=== PATIENT | female | born 1945 | race Caucasian/White ===

== ENCOUNTER 2016-09-30 18:15 | Inpatient (IN) | payer MEDICARE, OTHER ==
[~2016-09-30] VITALS: Ht 167.6 cm; Wt 86.6 kg
[2016-09-30] VITALS (13 sets, daily range): BP systolic 102–164; BP diastolic 67–82; PULSE 107–139; RESP 14–30; TEMP 98.1–100.2; O2SAT 93–100
[~2016-09-30 18:15] MED LIST: ALBU17I INH; ALPR.25 PO; BENA10TA PO; LEVA750T9 PO; LEVO50TA4 PO; PRED20 PO; PRIL40CA PO; QUET1TAB67 PO; VENL150T14 PO; Z.0.OXYGENDME NC; ZOCO80TA PO
[2016-09-30] MEDS ORDERED: SUCCINYLCHOLINE CHLORIDE 200 MG/10 ML VIAL ONE (18:23)
[2016-09-30] MEDS ORDERED: ETOMIDATE 20 MG/10 ML VIAL ONE (18:23)
--- NOTE | 2016-09-30 18:38 | PD ---
HPI Chief Complaint: Respiratory Distress Time Seen by Provider: 18:33 Travel History International Travel<30 days: No Contact w/Intl Traveler<30days: No Traveled to known affect area: No History of Present Illness HPI 70yo F with PMH of COPD on 2L home O2, HTN was brought in by [facility] for respiratory distress. Pt has been sob for 1 day and used her nebulizer treatments without relieve. As per [facility], pt's saturation was 69% on 2 LNC and was given duonebsx3 and methylprednisolone 125mg IV. Upon arrival, pt was tachypneic but with good mental status so initially immediately placed on BIPAP. Pt observed on BIPAP for a few minutes but felt that pt is still too tachypneic and is getting tired. Decision was made to emergently intubate and pt agrees with intubation. PFSH Past Medical History Autoimmune Disease: No Anxiety: Yes (TAKES MED) Depression: Yes Heart Rhythm Problems: No Cancer: Yes Cardiac Catheterization: Yes (7yrs ago.) High Cholesterol: Yes Chemotherapy: No Chest Pain: Yes (CARDIAC CATHERIZATION 7 YEARS AGO) Congestive Heart Failure: No COPD: Yes Cerebrovascular Accident: No Diabetes: No Diminished Hearing: No Diverticulitis: Yes Endocrine: Yes Gastrointestinal Disorders: Yes (DELAYED GASTRIC EMPTYING) GERD: Yes Genitourinary: No Hiatal Hernia: Yes Heparin Induced Thrombocytopen: No Hypertension: Yes Immune Disorder: No Implanted Vascular Access Dvce: No Musculoskeletal: No Neurologic: No Psychiatric: Yes Reproductive: No Respiratory: Yes (copd) Radiation Therapy: No Thyroid Disease: Yes Ulcer: No Tetanus Vaccination: Unknown PNEUMOCCOCAL Vaccine (Year): 2 Past Surgical History Abdominal Surgery: Yes (GALLBLADDER REMOVAL, APPENDECTOMY,) Appendectomy: Yes Cardiac Surgery: No Cholecystectomy: Yes Coronary Artery Bypass Graft: No Ear Surgery: No Endocrine Surgery: No Eye Surgery: No Genitourinary Surgery: No Gynecologic Surgery: Yes (HYSTERECTOMY, S/P UTERINE CA) Hysterectomy: Yes Neurologic Surgery: No Oral Surgery: No Thoracic Surgery: No Other Surgery: Yes Family History Family Myocardial Infarction: Yes (father) Social History Alcohol Use: No Tobacco Use: Yes (PACK A DAY FOR 50 YEARS; curretnly 8 cigs/day) Substance Use: No Allergies-Medications (Allergen,Severity, Reaction): Coded Allergies: Contrast Media (Verified Allergy, Severe, Itching, 09/30/16) 1-2 ITCHY SPOTS Reported Meds & Prescriptions Reported Meds & Active Scripts Active Reported Duoneb (Ipratropium-Albuterol Neb) 0.5-2.5 Mg/3 Ml Neb 1 Nebule INH Q6HR NEB Alprazolam 0.25 Mg Tab 0.25 Mg PO Q8H PRN Simvastatin 20 Mg Tab 20 Mg PO DAILY Quetiapine (Quetiapine Fumarate) 100 Mg Tab 100 Mg PO DAILY Benazepril (Benazepril HCl) 10 Mg Tab 10 Mg PO DAILY Venlafaxine ER 24 HR (Venlafaxine HCl) 150 Mg Cap 150 Mg PO DAILY Review of Systems ROS Limitations: Clinical Condition Physical Exam Narrative GENERAL: 70yo F in acute distress. SKIN: Warm and dry. HEAD: Atraumatic. Normocephalic. NECK: Trachea midline. No JVD. CARDIOVASCULAR: Tachycardic in the 130s. RESPIRATORY: + accessory muscle use. Wheezing bilaterally. Speaking in few words at a time. GASTROINTESTINAL: Abdomen soft, non-tender, nondistended. No rebound tenderness or guarding. MUSCULOSKELETAL: No obvious deformities. No clubbing. No cyanosis. No edema. NEUROLOGICAL: Awake and alert. No obvious cranial nerve deficits. Motor grossly within normal limits. Normal speech. PSYCHIATRIC: Appropriate mood and affect; insight and judgment normal. Data Data Last Documented VS Vital Signs Date Time Temp Pulse Resp B/P Pulse Ox O2 Delivery O2 Flow Rate FiO2 09/30/16 19:00 122 14 164/81 97 Auto-Vent 09/30/16 18:51 100 09/30/16 18:19 10 09/30/16 18:17 100.2 Orders Etomidate Inj (Amidate Inj) (09/30/16 18:23) Succinylcholine Inj (Quelicin Inj) (09/30/16 18:23) Etomidate Inj (Amidate Inj) (09/30/16 18:45) Succinylcholine Inj (Quelicin Inj) (09/30/16 18:45) Complete Blood Count With Diff (09/30/16 18:33) Basic Metabolic Panel (Bmp) (09/30/16 18:33) Act Partial Throm Time (Ptt) (09/30/16 18:33) Prothrombin Time / Inr (Pt) (09/30/16 18:33) Magnesium (Mg) (09/30/16 18:33) Ckmb (Isoenzyme) Profile (09/30/16 18:33) Troponin I (09/30/16 18:33) Blood Culture (09/30/16 18:33) Iv Access Insert/Monitor (09/30/16 18:33) Electrocardiogram (09/30/16 18:33) Ecg Monitoring (09/30/16 18:33) Oximetry (09/30/16 18:33) Oxygen Administration (09/30/16 18:33) Chest, Single Ap (09/30/16 18:33) Sodium Chloride 0.9% Flush (Ns Flush) (09/30/16 18:45) Lactic Acid Sepsis Protocol (09/30/16 18:33) Albuterol-Ipratropium Neb (Duoneb Neb) (09/30/16 18:45) Arterial Blood Gas (Abg) (09/30/16 ) Propofol 1000 Mg/100 Ml Inj (Diprivan 10 (09/30/16 18:45) ^ Infusion (09/30/16 18:38) RASS (09/30/16 18:38) Neurological Rass Scale GIA.Q2H (09/30/16 18:38) Propofol 1000 Mg/100 Ml Inj (Diprivan 10 (09/30/16 18:39) Urinary Catheter Insert/Apply (09/30/16 18:43) Restraints Non-Violent GIA.Q3H (09/30/16 18:43) Neurological Rass Scale Q30MX2,Q2HX4,Q4H (09/30/16 18:59) Fentanyl Drip (Fentanyl Drip) (09/30/16 19:00) Midazolam Inj (Versed Inj) (09/30/16 19:00) Neurological Rass Scale Q30MX2,Q2HX4,Q4H (09/30/16 18:59) Fentanyl Drip (Fentanyl Drip) (09/30/16 19:01) Admit To Inpatient (09/30/16 ) Code Status (09/30/16 19:07) Vital Signs (Adult) GIA.Q1H (09/30/16 19:07) Activity Bed Rest (09/30/16 19:07) Insurance Associate / Telemetry GIA.Q8H (09/30/16 19:07) Intake + Output GIA.Q8H (09/30/16 19:07) Diet Npo (10/01/16 Breakfast) Sodium Chlor 0.9% 1000 Ml Inj (Ns 1000 M (09/30/16 19:07) Sodium Chloride 0.9% Flush (Ns Flush) (09/30/16 19:15) Sodium Chloride 0.9% Flush (Ns Flush) (09/30/16 21:00) Acetaminophen (Tylenol) (09/30/16 19:15) Fentanyl Inj (Fentanyl Inj) (09/30/16 19:15) Albuterol-Ipratropium Neb (Duoneb Neb) (09/30/16 20:00) Albuterol-Ipratropium Neb (Duoneb Neb) (09/30/16 19:15) Chlorhexidine 0.12% Liq (Peridex 0.12% L (09/30/16 20:00) Pantoprazole Inj (Protonix Inj) (10/01/16 09:00) Complete Blood Count With Diff (10/01/16 06:00) Comprehensive Metabolic Panel (10/01/16 06:00) Sputum Culture And Gram Stain (09/30/16 19:07) Chest, Single Ap (10/01/16 06:00) Resp Pulse Oximetry (09/30/16 ) Resp Ventilation- Volume (09/30/16 ) Arterial Blood Gas (Abg) (09/30/16 21:00) Consult Cm-Day 5 Ltac Eval (09/30/16 ) Enoxaparin Inj (Lovenox Inj) (09/30/16 20:00) Scd Bilateral/Knee High GIA.BID (09/30/16 19:07) Tanmay Bilateral/Knee High GIA.QSHIFT (09/30/16 19:07) ^ Initiate Protocol (09/30/16 19:07) ^ Instruction (09/30/16 19:07) [facility] Information (09/30/16 19:15) Chlorhexidine 2% Cloth (Chlorhexidine 2% (10/01/16 04:00) Chlorhexidine 2% Cloth (Chlorhexidine 2% (09/30/16 19:15) [facility] Pcr Surveillance (09/30/16 19:07) Propofol 1000 Mg/100 Ml Inj (Diprivan 10 (09/30/16 19:15) Inpatient Certification (09/30/16 ) Levofloxacin 750 Mg Premix Inj (Levaquin (09/30/16 21:00) Methylprednisolone So Succ Inj (Solumedr (10/01/16 00:00) Methylprednisolone So Succ Inj (Solumedr (09/30/16 19:15) ^ Medication Admin Instruction (09/30/16 19:13) ^ Notify Dr: Other (09/30/16 19:13) Potassium Chlor 40 Meq Premix (Kcl 40 Me (09/30/16 19:15) Potassium Chlor 20 Meq Premix (Kcl 20 Me (09/30/16 19:15) Potassium Cl 40 Meq/30 Ml Liq (Kcl 40 Me (09/30/16 19:15) Potassium Chlor 20 Meq Premix (Kcl 20 Me (09/30/16 19:15) Magnesium Sulfate Inj (Magnesium Sulfate (09/30/16 19:15) Magnesium Oxide (Mag-Ox) (09/30/16 19:15) Magnesium Sulfate Inj (Magnesium Sulfate (09/30/16 19:15) Potassium Phosphate (K-Phos) (09/30/16 19:15) Sodium Phosphate Inj (Sodium Phosphate I (09/30/16 19:15) Potassium Cl 40 Meq/30 Ml Liq (Kcl 40 Me (09/30/16 19:15) Potassium Phosphate (K-Phos) (09/30/16 19:15) Potassium Phosphate Inj (Potassium Phosp (09/30/16 19:15) Potassium Chlor 40 Meq Premix (Kcl 40 Me (09/30/16 19:15) Admit Order (Ed Use Only) (09/30/16 19:14) Phosphorus (Po4) (09/30/16 18:40) CKMB (09/30/16 18:40) CKMB% (09/30/16 18:40) Labs Laboratory Tests Test 09/30/16 09/30/16 18:40 19:05 White Blood Count 6.6 TH/MM3 Red Blood Count 5.07 MIL/MM3 Hemoglobin 14.6 GM/DL Hematocrit 44.5 % Mean Corpuscular Volume 87.9 FL Mean Corpuscular Hemoglobin 28.9 PG Mean Corpuscular Hemoglobin 32.9 % Concent Red Cell Distribution Width 15.4 % Platelet Count 135 TH/MM3 Mean Platelet Volume 10.4 FL Neutrophils (%) (Auto) 80.2 % Lymphocytes (%) (Auto) 10.3 % Monocytes (%) (Auto) 6.0 % Eosinophils (%) (Auto) 2.6 % Basophils (%) (Auto) 0.9 % Neutrophils # (Auto) 5.3 TH/MM3 Lymphocytes # (Auto) 0.7 TH/MM3 Monocytes # (Auto) 0.4 TH/MM3 Eosinophils # (Auto) 0.2 TH/MM3 Basophils # (Auto) 0.1 TH/MM3 CBC Comment DIFF FINAL Differential Comment Sodium Level 138 MEQ/L Potassium Level 4.6 MEQ/L Chloride Level 104 MEQ/L Carbon Dioxide Level 27.5 MEQ/L Anion Gap 7 MEQ/L Blood Urea Nitrogen 15 MG/DL Creatinine 0.74 MG/DL Estimat Glomerular Filtration 77 ML/MIN Rate Random Glucose 154 MG/DL Lactic Acid Level 1.3 mmol/L Calcium Level 8.3 MG/DL Phosphorus Level 5.5 MG/DL Magnesium Level 2.1 MG/DL Total Creatine Kinase 131 U/L Creatine Kinase MB 2.7 NG/ML Troponin I 0.50 NG/ML Blood Gas Puncture Site RT RADIAL Blood Gas Patient Temperature 98.6 Blood Gas HCO3 23 mmol/L Blood Gas Base Excess -2.8 mmol/L Blood Gas Oxygen Saturation 95 % Arterial Blood pH 7.25 Arterial Blood Partial 56 mmHg Pressure CO2 Arterial Blood Partial 481 mmHG Pressure O2 Arterial Blood Oxygen Content 20.1 Vol % Arterial Blood 1.9 % Carboxyhemoglobin Arterial Blood Methemoglobin 2.4 % Blood Gas Hemoglobin 14.1 G/DL Oxygen Delivery Device VENTILATOR Blood Gas Ventilator Setting VAC/12/500/PEEP5 Blood Gas Inspired Oxygen 100 % [facility] Medical Decision Making Medical Screen Exam Complete: Yes Emergency Medical Condition: Yes Interpretation(s) EKG: Sinus tachycardia at 123bpm. Normal axis. No ST segment elevation or depression. Q wave V1, V2. Differential Diagnosis Respiratory distress secondary to COPD exacerbation vs. PNA vs. ACS Narrative Course 70yo F with COPD brought in by [facility] with respiratory distress. Pt was given methylprednisolone 125mg IV and duonebs x3 by [facility] and arrived still very tachypneic and tachycardic with sinus tach in the 130s. Pt emergently intubated and was placed on propofol drip. However, BP decreased to systolic 90s and sedation was switched to fentanyl and versed drip. BP improved to systolic in the 120s. Duonebs Q4 hours ordered. Discussed with certified medication technician Dr. Bunn and accepted to his service. Labs reviewed, no leukocytosis. Normal lactic acid. Troponin elevated at 0.50. ABG showed respiratory acidosis with pH: 7.25 and pCO2 56. CXR showed good position of ET and NG tube. No acute airspace disease. Impression is hypoxic respiratory failure secondary to COPD exacerbation. Pt is wheezing diffusely. Critical Care Narrative Aggregate critical care time was 40 minutes. Time to perform other separately billable procedures was not included in the critical care time. My time did not include minutes spent treating any other patients simultaneously or on activities that did not directly contribute to the patient's treatment. The services I provided to this patient were to treat and/or prevent clinically significant deterioration that could result in: cardiovascular collapse or . I provided critical care services requiring my management, as noted below: Chart data review, documentation time, medication orders and management, vital sign assessments/reviewing monitor data, ordering and reviewing lab tests, ordering and interpreting/reviewing x-rays and diagnostic studies, care of the patient and discussion of the patient with the admitting physicians. Procedures Procedure Narrative The patient was put in optimal position for the procedure. Rapid sequence intubation was initiated by me using 20 milligrams of etomidate IV and 100 milligrams of succinylcholine IV. The patient was intubated with a 7.5 cuffed endotracheal tube. Tube placement was confirmed by visualization of the tube and balloon passing through the cords, capnometry and subsequent chest x-ray. Breath sounds were equal and well aerated bilaterally postintubation. No breath sounds over stomach. Patient tolerated procedure well. Diagnosis Primary Impression: Acute hypoxemic respiratory failure Admitting Information Admitting Physician Requests: Admit Dominique Rehman DO Sep 30, 2016 18:38
[2016-09-30] MEDS ORDERED: PROPOFOL 1000 MG/100 ML INJ 100 ML ONE (18:39)
[2016-09-30] MEDS ORDERED: SODIUM CHLORIDE 0.9% FLUSH 5 ML FLUSH IVF PRN (18:45)
[2016-09-30] MEDS ORDERED: ETOMIDATE 20 MG/10 ML VIAL IV PUSH ONE (18:45)
[2016-09-30] MEDS ORDERED: SUCCINYLCHOLINE CHLORIDE 200 MG/10 ML VIAL IV PUSH ONE (18:45)
[2016-09-30] MEDS ORDERED: RESP: ALBUTEROL 2.5 MG/IPRATROPIUM 0.5 MG NEB (PRN) NEB (18:45)
[2016-09-30] MEDS ORDERED: PROPOFOL 1000 MG/100 ML INJ 100 ML IV SCH (18:45)
[2016-09-30] MEDS ORDERED: fentaNYL DRIP 250 ML ONE (19:01)
[2016-09-30] MEDS: fentaNYL DRIP 250 ML IV SCH ×2 (19:09→19:11)
[2016-09-30] MEDS ORDERED: POTASSIUM CHLOR 20 MEQ PREMIX 100 ML IV PRN ×2 (19:15)
[2016-09-30] MEDS ORDERED: MISCELLANEOUS NURSING INFORMATION XX SCH (19:15)
[2016-09-30] MEDS ORDERED: POTASSIUM CHLOR 40 MEQ PREMIX 100 ML IV PRN ×2 (19:15)
[2016-09-30] MEDS ORDERED: MAGNESIUM OXIDE 400 MG TAB PO PRN (19:15)
[2016-09-30] MEDS ORDERED: MAGNESIUM SULFATE INJ 4 GM in SODIUM CHLORIDE 0.9% INJ 92 ML IV PRN (19:15)
[2016-09-30] MEDS ORDERED: POTASSIUM PHOSPHATE INJ 30 MMOL in SODIUM CHLOR 0.9% 250 ML INJ 250 ML IV PRN (19:15)
[2016-09-30] MEDS ORDERED: methylPREDNISolone SOD SUCC 125 MG/2 ML VIAL IV PUSH ONE (19:15)
[2016-09-30] MEDS ORDERED: RESP: ALBUTEROL 2.5 MG/IPRATROPIUM 0.5 MG NEB (PRN) INH (19:15)
[2016-09-30] MEDS ORDERED: POTASSIUM PHOSPHATE MONOBASIC 500 MG TAB PO PRN (19:15)
[2016-09-30] MEDS ORDERED: POTASSIUM CL 40 MEQ/30 ML LIQ UDC PO/TUBE PRN ×2 (19:15)
[2016-09-30] MEDS ORDERED: MAGNESIUM SULFATE INJ 2 GM in SODIUM CHLORIDE 0.9% INJ 96 ML IV PRN (19:15)
[2016-09-30] MEDS ORDERED: POTASSIUM PHOSPHATE MONOBASIC 500 MG TAB PO/TUBE PRN (19:15)
[2016-09-30] MEDS ORDERED: CHLORHEXIDINE GLUCONATE 2 % 1 PACK (2 CLOTHS) TOP PRN (19:15)
--- NOTE | 2016-09-30 19:16 | HHI.HP ---
[facility] Service Critical Care Medicine Primary Care Physician Alejandro Urban MD Admission Diagnosis Diagnosis: (1) Acute hypoxemic respiratory failure Diagnosis: Principal (2) COPD with exacerbation Diagnosis: Principal (3) Troponin level elevated Diagnosis: Principal (4) Hyperglycemia Diagnosis: Principal (5) COPD (chronic obstructive pulmonary disease) Diagnosis: Secondary (6) Tobacco dependence Diagnosis: Secondary (7) Hypertension Diagnosis: Secondary Chief Complaint: Acute hypoxemic respiratory failure and respiratory distress Travel History International Travel<30 Days: No Contact w/Intl Traveler <30 Da: No Traveled to Known Affected Are: No History of Present Illness Patient is a 78-year-old white female with past medical history significant for COPD on 2L home O2, HTN, anxiety who was brought in [place] [facility] by [facility] for respiratory distress. Apparently patient had been increasingly short of breath for 1 day and used her nebulizer treatments without relief. Patient's oxygen saturation was 69% on 2 LNC on [facility] arrival and was given duonebsx3 and methylprednisolone 125mg IV. In the emergency department patient was very tachypneic hypoxic and was immediately placed on BIPAP. Patient remained tachypneic in respiratory distress on BiPAP and was intubated and placed on mechanical ventilation I evaluated the patient in the ED. Patient is asynchronous and tachypneic on the ventilator, agitated on sedation. I have requested neuromuscular paralysis 50 mg rocuronium 1. ABG shows pH 7.25 PCO2 of 56 and PO2 481. Patient will be treated with IV Solu-Medrol and DuoNeb scheduled breathing treatments and empiric Levaquin will be added for COPD exacerbation. Patient has mild troponin elevation no acute EKG changes. This is most likely from severe COPD exacerbation and severe hypoxemia. Review of Systems ROS Limitations: Intubated Past Family Social History Allergies: Coded Allergies: Contrast Media (Verified Allergy, Severe, Itching, 09/30/16) 1-2 ITCHY SPOTS Past Medical History COPD Hypertension History of uterine cancer Hyperlipidemia Anxiety GERD Past Surgical History Appendectomy Cholecystectomy Total hysterectomy Reported Medications Reviewed Active Ordered Medications Reviewed Family History Noncontributory Social History [id number] history of smoking, currently smokes about 8 cigarettes a day Physical Exam Vital Signs Vital Signs Date Time Temp Pulse Resp B/P Pulse Ox O2 Delivery O2 Flow Rate FiO2 09/30/16 18:51 98 100 09/30/16 18:46 97 100 09/30/16 18:46 97 Auto-Vent 09/30/16 18:30 100 09/30/16 18:19 93 Non-Rebreather 10 09/30/16 18:17 100.2 139 30 125/72 93 Physical Exam GENERAL: 70yo F who is intubated sedated with propofol fentanyl, breathing about the vent a synchronous agitated SKIN: Warm and dry. HEAD: Atraumatic. Normocephalic. ENT: Orotracheally intubated NECK: Trachea midline. No JVD. CARDIOVASCULAR: Tachycardic in the 110s. No murmurs RESPIRATORY: Air entry equal bilaterally, severe bilateral expiratory wheezing. GASTROINTESTINAL: Abdomen soft, non-tender, nondistended. Well-healed previous surgical scar MUSCULOSKELETAL: No obvious deformities. No clubbing. No cyanosis. No edema. NEUROLOGICAL: Intubated sedated. Moving all extremities not following commands Imaging Chest x-ray no acute findings Assessment and Plan Assessment and Plan NEURO: -Propofol fentanyl and Versed infusion for sedation and ventilator synchrony -Sedation vacation starting 24 hours RESP: Acute hypoxemic respiratory failure Acute COPD exacerbation Chronic COPD on 2 L home oxygen -Emergently intubated and placed on mechanical ventilation ACV 14/550/7 titrate FiO2 to keep saturation about 90% -Closely monitored avoid entrapping because of significant wheezing -IV Solu-Medrol 125 mg given by [facility], continue 60 mg IV every 8 hours -DuoNeb every 4 hours scheduled and every 2 hours when necessary. Symbicort 2 puffs every 12 CV: Hypotension due to sedation Tachycardia/SIRS Troponin elevation, from severe hypoxemia and COPD exacerbation -Normal saline IV fluids 2L and 84 ml per hour -Lactic acid is normal, hypotension most likely sedation induced -Use Levophed as needed to keep map above 65 -Mild troponin elevation most likely secondary to severe hypoxemia, stress induced -Check 2-D echo, start aspirin, low-dose Coreg -I don't see an indication for cardiology consult at this time. If echo shows wall motion abnormalities will consult cardiology -Hold Benzapril continue simvastatin GI: -Nothing by mouth, IV Protonix, Colace for bowel regimen : -Monitor renal function closely. Abreu catheter. ID: -Check sputum culture, blood culture -Started on empiric Levaquin 750 mg every 24 hours for COPD exacerbation HEME: -Monitor CBC, CMP, coags ENDO: Mild hyperglycemia most likely stress induced -Sliding-scale insulin if needed -Electrolyte replacement per protocol PROPH: Bilateral lower extremity SCDs. Lovenox for DVT prophylaxis. Protonix for GI prophylaxis LINES: -Utilize peripheral IVs, central line if needed CC time 55 min Code Status Full Discussed Condition With Rebel Snowden MD Sep 30, 2016 19:16
[2016-09-30 19:20] LABS: BLOOD GAS BASE EXCESS -2.8 mmol/L (-2-2); BLOOD GAS CARBOXYHEMOGLOBIN 1.9 % (0-4); BLOOD GAS HCO3 23 mmol/L (22-26); BLOOD GAS METHEMOGLOBIN 2.4 % (0-2); BLOOD GAS O2 HGB SATURATION 95 % (90-100); BLOOD GAS OXYGEN CONTENT 20.1 Vol % (12.0-20.0); BLOOD GAS PCO2 56 mmHg (38-42); BLOOD GAS PO2 481 mmHG (61-120); BLOOD GAS TOTAL HGB 14.1 G/DL (12.0-16.0); TEMP CORR TO 98.6
[2016-09-30 19:22] LABS: CRITICAL VALUE YES; DRAW SITE RT RADIAL; FIO2 100 %; NUMBER OF ARTERIAL PUNCTURES 1; OXYGEN DEVICE VENTILATOR; STAT YES; ULNAR PULSE PRESENT; VENT SETTINGS VAC/12/500/PEEP5
[2016-09-30 19:29] LABS: AUTOMATED NEUTROPHIL # 5.3 TH/MM3 (1.8-7.7); BASOPHIL # 0.1 TH/MM3 (0-0.2); BASOPHIL % 0.9 % (0.0-2.0); EOSINOPHIL # 0.2 TH/MM3 (0-0.4); EOSINOPHIL % 2.6 % (0.0-4.0); HEMATOCRIT 44.5 % (35.0-46.0); HEMO FLAGS DIFF FINAL; LYMPH % 10.3 % (9.0-44.0); LYMPHOCYTE # 0.7 TH/MM3 (1.0-4.8); MEAN CELL VOLUME 87.9 FL (80.0-100.0); MEAN CORPUSCULAR HEMOGLOBIN 28.9 PG (27.0-34.0); MEAN CORPUSCULAR HGB CONC 32.9 % (32.0-36.0); NEUT % 80.2 % (16.0-70.0); PLATELET COUNT 135 TH/MM3 (150-450); RED BLOOD COUNT 5.07 MIL/MM3 (4.00-5.30); RED CELL DISTRIBUTION WIDTH 15.4 % (11.6-17.2); WHITE BLOOD COUNT 6.6 TH/MM3 (4.0-11.0)
--- NOTE | 2016-09-30 19:46 | RADRPT ---
EXAM DATE/TIME: 09/30/2016 18:36 [facility] COMPARISON: CHEST SINGLE AP, September 05, 2015, 12:03. INDICATIONS : SOB MEDICAL HISTORY : Chronic obstructive pulmonary disease. SURGICAL HISTORY : None. ENCOUNTER: Initial ACUITY: 1 day PAIN SCORE: 0/10 LOCATION: chest FINDINGS: Endotracheal and nasogastric tubes have been inserted and are in good position. Lungs are hyperinflated. There is no evidence of consolidating airspace disease or significant conges tion. Heart and mediastinal structures are stable. There is no cardiomegaly. CONCLUSION: COPD. Satisfactory placement of endotracheal and nasogastric tubes. No evidence of acute air space disease or significant congestion. Payam Arteaga MD on September 30, 2016 at 19:44 Board Certified Radiologist. This report was verified electronically.
[2016-09-30] MEDS: RESP: ALBUTEROL 2.5 MG/IPRATROPIUM 0.5 MG NEB (SCH) NEB ×2 (19:49→23:29)
[2016-09-30] MEDS: RESP: ALBUTEROL 2.5 MG/IPRATROPIUM 0.5 MG NEB (SCH) INH (19:54)
[2016-09-30] MEDS ORDERED: ENOXAPARIN SODIUM 40 MG/0.4 ML SYRINGE SQ SCH (20:00)
[2016-09-30] MEDS: SODIUM CHLOR 0.9% 1000 ML INJ 1,000 ML IV SCH (20:06)
[2016-09-30 20:08] LABS: ANION GAP 7 MEQ/L (5-15); BICARBONATE 27.5 MEQ/L (21.0-32.0); BLOOD UREA NITROGEN 15 MG/DL (7-18); CHLORIDE 104 MEQ/L (98-107); CREATINE KINASE 131 U/L (26-192); GLOMERULAR FILTRATION RATE 77 ML/MIN (>89); MAGNESIUM 2.1 MG/DL (1.5-2.5); SODIUM (NA) 138 MEQ/L (136-145)
[2016-09-30] MEDS ORDERED: VENL150C39 PO (20:08)
[2016-09-30] MEDS ORDERED: IPRASOL INH (20:08)
[2016-09-30] MEDS ORDERED: SIMV20TA PO (20:08)
[2016-09-30] MEDS ORDERED: QUET1TAB8 PO (20:08)
[2016-09-30] MEDS ORDERED: BENA10TA PO (20:08)
[2016-09-30] MEDS ORDERED: ALPR0.25 PO (20:08)
[2016-09-30 20:09] LABS: POTASSIUM 4.6 MEQ/L (3.5-5.1)
[2016-09-30] MEDS ORDERED: SODIUM CHLOR 0.9% 1000 ML INJ 1,000 ML IV ONE (20:15)
[2016-09-30] MEDS ORDERED: ROCURONIUM INJ 50 MG/5 ML VIAL IV ONE (20:15)
[2016-09-30 20:21] LABS: CKMB 2.7 NG/ML (0.5-3.6)
[2016-09-30] MEDS ORDERED: ROCURONIUM INJ 50 MG/5 ML VIAL IV STA (20:28)
[2016-09-30] MEDS: BUDESONIDE-FORMOTEROL 160/4.5 MCG INHALER INH SCH (21:00)
[2016-09-30 21:25] LABS: BLOOD GAS BASE EXCESS -3.7 mmol/L (-2-2); BLOOD GAS CARBOXYHEMOGLOBIN 1.5 % (0-4); BLOOD GAS HCO3 22 mmol/L (22-26); BLOOD GAS METHEMOGLOBIN 1.3 % (0-2); BLOOD GAS O2 HGB SATURATION 94 % (90-100); BLOOD GAS OXYGEN CONTENT 18.9 Vol % (12.0-20.0); BLOOD GAS PCO2 50 mmHg (38-42); BLOOD GAS PO2 94 mmHg (61-120); BLOOD GAS TOTAL HGB 14.3 G/DL (12.0-16.0); TEMP CORR TO 98.6
[2016-09-30 21:27] LABS: DRAW SITE RT RADIAL; FIO2 40 %; NUMBER OF ARTERIAL PUNCTURES 1; OXYGEN DEVICE VENTILATOR; STAT NO; ULNAR PULSE PRESENT; VENT SETTINGS AC 14/550/7PEEP
[2016-09-30 21:29] LABS: CRITICAL VALUE YES
[2016-09-30] MEDS: ASPIRIN 81 MG CHEW TAB TUBE SCH (22:01)
[2016-09-30] MEDS: LEVOFLOXACIN 750 MG PREMIX INJ 150 ML IV SCH (22:01)
[2016-09-30] MEDS: SODIUM CHLORIDE 0.9% FLUSH 5 ML FLUSH IVF SCH (22:02)
[2016-09-30] MEDS: CARVEDILOL 3.125 MG TAB PO SCH (22:02)
[2016-09-30] MEDS: methylPREDNISolone SOD SUCC 125 MG/2 ML VIAL IV PUSH SCH (22:03)
[2016-09-30] MEDS: CHLORHEXIDINE GLUCONATE 2 % 1 PACK (2 CLOTHS) TOP SCH (22:04)
[2016-09-30] MEDS: CHLORHEXIDINE 0.12% (ORAL KIT) 15 ML CUP MT SCH (22:06)
[2016-10-01] VITALS (22 sets, daily range): BP systolic 90–115; BP diastolic 67–77; PULSE 75–101; RESP 14–25; TEMP 97.8–98.6; O2SAT 90–100
[2016-10-01 01:19] LABS: APTT (PATIENT) 27.6 SEC (24.3-30.1)
[2016-10-01] MEDS ORDERED: HEPARIN-D5W INJ 250 ML IV SCH (01:30)
[2016-10-01] MEDS ORDERED: diphenhydrAMINE HCL 50 MG/ML VIAL IV PUSH ONE (02:30)
[2016-10-01] MEDS ORDERED: HEPARIN 25,000 UNITS-D5W 250 ML - PREMIX IV SCH (02:30)
[2016-10-01] MEDS ORDERED: HEPARIN SODIUM - IV 10,000 UNITS/10 ML VIAL IV PRN ×2 (02:30)
[2016-10-01] MEDS ORDERED: EPINEPHrine HCL (1:10,000) 1 MG/10 ML SYRINGE ONE (02:41)
[2016-10-01] MEDS ORDERED: IOHEXOL 350 MG/ML 10 ML VIAL (for RAD DIAG) IV ONE (03:02)
[2016-10-01 03:07] LABS: HEMATOCRIT 41.5 % (35.0-46.0); MEAN CELL VOLUME 88.1 FL (80.0-100.0); MEAN CORPUSCULAR HEMOGLOBIN 29.7 PG (27.0-34.0); MEAN CORPUSCULAR HGB CONC 33.7 % (32.0-36.0); PLATELET COUNT 141 TH/MM3 (150-450); RED BLOOD COUNT 4.71 MIL/MM3 (4.00-5.30); RED CELL DISTRIBUTION WIDTH 15.7 % (11.6-17.2); REVIEW FLAG FINAL; WHITE BLOOD COUNT 4.4 TH/MM3 (4.0-11.0)
--- NOTE | 2016-10-01 03:10 | RADRPT ---
EXAM DATE/TIME: 10/01/2016 02:54 [facility] COMPARISON: No previous studies available for comparison. INDICATIONS : Respiratory failure; rule out pulmonary embolus. IV CONTRAST: 64 cc Omnipaque 350 (iohexol) IV RADIATION DOSE: 9.07 CTDIvol (mGy) MEDICAL HISTORY : Hypertension. Chronic obstructive pulmonary disease. SURGICAL HISTORY : None. ENCOUNTER: Initial ACUITY: 1 day PAIN SCALE: Non-responsive LOCATION: chest Patient was premedicated for underlying contrast media allergy. TECHNIQUE: Volumetric scanning of the chest was performed using a pulmonary embolism protocol MIP images were re constructed. Using automated exposure control and adjustment of the mA and/or kV according to patien t size, radiation dose was kept as low as reasonably achievable to obtain optimal diagnostic quality images. FINDINGS: PULMONARY ARTERIES: No filling defects are seen in the pulmonary arteries through the segmental level. LUNGS: Mild basilar bronchiectasis and occasional mild parenchymal atelectasis, mainly on the right. PLEURAE: There is no pleural thickening or pleural effusion. MEDIASTINUM: There is good visualization of the great vessels of the middle mediastinum. No evidence of mediastin al or hilar adenopathy/mass. MUSCULOSKELETAL: Within normal limits for patient age. MISCELLANEOUS: The visualized upper abdominal organs demonstrate no acute abnormality. CONCLUSION: No evidence of pulmonary embolism Oni Zamora MD on October 01, 2016 at 3:07 Board Certified Radiologist. This report was verified electronically.
[2016-10-01] MEDS: PROPOFOL 1000 MG/100 ML INJ 100 ML IV SCH ×2 (03:27→13:36)
[2016-10-01] MEDS: RESP: ALBUTEROL 2.5 MG/IPRATROPIUM 0.5 MG NEB (SCH) NEB ×6 (03:36→23:53)
[2016-10-01] MEDS: MIDAZOLAM 100 MG/ML INJ 100 ML IV SCH (03:55)
[2016-10-01] MEDS ORDERED: ROCURONIUM INJ 50 MG/5 ML VIAL IV ONE (04:45)
[2016-10-01] MEDS ORDERED: SODIUM CHLOR 0.9% 1000 ML INJ 1,000 ML IV ONE (05:15)
[2016-10-01] MEDS: methylPREDNISolone SOD SUCC 125 MG/2 ML VIAL IV PUSH SCH ×4 (05:20→23:51)
--- NOTE | 2016-10-01 05:51 | PD.PROCEDR ---
Central Line Procedure REASON FOR PROCEDURE Central venous access PROCEDURE PERFORMED Central line placement: R subclavian central line CONSENT Informed consent for procedure was obtained and time out performed. The risks and benefits of the procedure were discussed to include but limited to bleeding , clot formation, infection, and even . ANESTHESIA Local injection of 1% Lidocaine DESCRIPTION OF THE PROCEDURE The patient was placed in supine, mild Trendelenburg position. The area was exposed and cleansed with ChloraPrep, times two. Large sterile drape was used to cover the patient, with the site exposed, under sterile conditions including cap, face mask, sterile gown, and sterile gloves. On single attempt, the introducer needle was inserted with negative pressure in syringe and venous flash was obtained. The guide wire was then advanced without any restriction and the needle was removed. The dilator was used without any complications. Using Seldinger technique the 20 CM 5 lumen ABX coated catheter was advanced over the guide wire to a depth of 17 centimeters. The guide wire was removed. All ports were aspirated with dark venous blood return and flushed easily with sterile saline. All ports were capped. Antibiotic disc was placed around central line at puncture site. The central line was secured to the skin with two interrupted 2.0 silk sutures. The area was bandaged with sterile see- through central line bandage. COMPLICATIONS: No apparent complications ESTIMATED BLOOD LOSS: Less than 1 cc. Rebel Bunn MD Oct 01, 2016 05:51
[2016-10-01 06:09] LABS: BLOOD GAS BASE EXCESS -6.1 mmol/L (-2-2); BLOOD GAS CARBOXYHEMOGLOBIN 0.9 % (0-4); BLOOD GAS HCO3 21 mmol/L (22-26); BLOOD GAS O2 HGB SATURATION 92 % (90-100); BLOOD GAS OXYGEN CONTENT 17.5 Vol % (12.0-20.0); BLOOD GAS PCO2 62 mmHg (38-42); BLOOD GAS PO2 83 mmHg (61-120); BLOOD GAS TOTAL HGB 13.5 G/DL (12.0-16.0); TEMP CORR TO 98.6
[2016-10-01 06:10] LABS: CRITICAL VALUE YES; OXYGEN DEVICE VENTILATOR
[2016-10-01 06:11] LABS: DRAW SITE RT RADIAL; FIO2 40 %; NUMBER OF ARTERIAL PUNCTURES 1; STAT NO; ULNAR PULSE PRESENT; VENT SETTINGS AC 14/550/PEEP7
[2016-10-01 06:41] LABS: AUTOMATED NEUTROPHIL # 3.4 TH/MM3 (1.8-7.7); BASOPHIL % 0.4 % (0.0-2.0); EOSINOPHIL % 0.1 % (0.0-4.0); HEMATOCRIT 43.5 % (35.0-46.0); HEMO FLAGS DIFF FINAL; LYMPH % 5.7 % (9.0-44.0); LYMPHOCYTE # 0.2 TH/MM3 (1.0-4.8); MEAN CELL VOLUME 89.5 FL (80.0-100.0); MEAN CORPUSCULAR HEMOGLOBIN 28.6 PG (27.0-34.0); MEAN CORPUSCULAR HGB CONC 31.9 % (32.0-36.0); MONO % 3.4 % (0.0-8.0); NEUT % 90.4 % (16.0-70.0); PLATELET COUNT 134 TH/MM3 (150-450); RED BLOOD COUNT 4.86 MIL/MM3 (4.00-5.30); RED CELL DISTRIBUTION WIDTH 15.6 % (11.6-17.2); WHITE BLOOD COUNT 3.8 TH/MM3 (4.0-11.0)
[2016-10-01 06:45] LABS: ALT (GPT) 177 U/L (10-53); ANION GAP 9 MEQ/L (5-15); AST (GOT) 313 U/L (15-37); BLOOD UREA NITROGEN 18 MG/DL (7-18); CHLORIDE 109 MEQ/L (98-107); GLOMERULAR FILTRATION RATE 79 ML/MIN (>89); POTASSIUM 4.6 MEQ/L (3.5-5.1); SODIUM (NA) 141 MEQ/L (136-145)
[2016-10-01 06:48] LABS: ALKALINE PHOSPHATASE 172 U/L (45-117)
--- NOTE | 2016-10-01 06:52 | RADRPT ---
EXAM DATE/TIME: 10/01/2016 05:53 [facility] COMPARISON: CHEST SINGLE AP, October 01, 2016, 3:13. INDICATIONS : Right subclavian central line placement. MEDICAL HISTORY : Chronic obstructive pulmonary disease. SURGICAL HISTORY : None. ENCOUNTER: Subsequent ACUITY: 2 days PAIN SCORE: Non-responsive. LOCATION: Bilateral chest FINDINGS: Endotracheal tube and nasogastric tube are present in good position. A right subclavian central line is noted with tip overlying SVC. There is no evidence of pneumothorax or other complication of placem ent. The lungs are hyperinflated focally clear. Cardiac contours are stable. CONCLUSION: Satisfactory central line position with no complication. Oni Zamora MD on October 01, 2016 at 6:50 Board Certified Radiologist. This report was verified electronically.
--- NOTE | 2016-10-01 07:02 | RADRPT ---
EXAM DATE/TIME: 10/01/2016 03:13 [facility] COMPARISON: CHEST SINGLE AP, October 01, 2016, 5:53. INDICATIONS : Shortness of breath, possible pulmonary disease. MEDICAL HISTORY : Chronic obstructive pulmonary disease. SURGICAL HISTORY : None. ENCOUNTER: Subsequent ACUITY: 2 days PAIN SCORE: Non-responsive. LOCATION: Bilateral chest FINDINGS: Endotracheal tube and nasogastric tube are present in good position. There has removal of a right sub clavian central line. The lungs are grossly clear and the cardiac contours are satisfactory. CONCLUSION: No focal lung disease Oni Zamora MD on October 01, 2016 at 7:00 Board Certified Radiologist. This report was verified electronically.
[2016-10-01] MEDS: ASPIRIN 81 MG CHEW TAB TUBE SCH (08:50)
[2016-10-01] MEDS: PANTOPRAZOLE SODIUM 40 MG VIAL IV SCH (08:50)
[2016-10-01] MEDS: PRAVASTATIN SOD 40 MG TAB PO SCH (08:50)
[2016-10-01] MEDS: SODIUM CHLORIDE 0.9% FLUSH 5 ML FLUSH IVF SCH ×2 (08:50→21:12)
[2016-10-01] MEDS: SODIUM CHLOR 0.9% 1000 ML INJ 1,000 ML IV SCH ×2 (08:51→21:13)
[2016-10-01] MEDS: CHLORHEXIDINE 0.12% (ORAL KIT) 15 ML CUP MT SCH ×2 (08:51→21:12)
[2016-10-01] MEDS ORDERED: NON-FORMULARY DRUG (Simvastatin 20 MG) PO SCH (09:00)
[2016-10-01] MEDS: CARVEDILOL 3.125 MG TAB PO SCH ×2 (09:00→21:12)
--- NOTE | 2016-10-01 10:31 | HHI.CCPN ---
Subjective Remarks/Hospital Course Patient is a 78-year-old white female with past medical history significant for COPD on 2L home O2, HTN, anxiety who was brought in [place] ER by [facility] for respiratory distress. Apparently patient had been increasingly short of breath for 1 day and used her nebulizer treatments without relief. Patient's oxygen saturation was 69% on 2 LNC on [facility] arrival and was given duonebsx3 and methylprednisolone 125mg IV. In the emergency department patient was very tachypneic hypoxic and was immediately placed on BIPAP. Patient remained tachypneic in respiratory distress on BiPAP and was intubated and placed on mechanical ventilation I evaluated the patient in the ED. Patient is asynchronous and tachypneic on the ventilator, agitated on sedation. I have requested neuromuscular paralysis 50 mg rocuronium 1. ABG shows pH 7.25 PCO2 of 56 and PO2 481. Patient will be treated with IV Solu-Medrol and DuoNeb scheduled breathing treatments and empiric Levaquin will be added for COPD exacerbation. Patient has mild troponin elevation no acute EKG changes. This is most likely from severe COPD exacerbation and severe hypoxemia. 3/: The patient continues to have ventilator dyssynchrony, sedation increased. Plan for CPAP trials this afternoon. Objective Vital Signs Date Time Temp Pulse Resp B/P Pulse Ox O2 Delivery O2 Flow Rate FiO2 10/01/16 07:24 100 65 10/01/16 06:00 83 10/01/16 04:00 97.8 14 90/67 09/30/16 20:04 Auto-Vent 09/30/16 18:19 10 Result Diagram: 10/01/16 0440 10/01/16 0440 Other Results Laboratory Tests Test 09/30/16 09/30/16 10/01/16 19:05 21:10 05:58 Blood Gas Puncture Site RT RADIAL RT RADIAL RT RADIAL Blood Gas Patient Temperature 98.6 98.6 98.6 Blood Gas HCO3 23 mmol/L 22 mmol/L 21 mmol/L (22-26) (22-26) (22-26) Blood Gas Base Excess -2.8 mmol/L -3.7 mmol/L -6.1 mmol/L (-2-2) (-2-2) (-2-2) Blood Gas Oxygen Saturation 95 % (90-100) 94 % (90-100) 92 % (90-100) Arterial Blood pH 7.25 7.27 7.16 (7.380-7.420) (7.380-7.420) (7.380-7.420) Arterial Blood Partial 56 mmHg (38-42) 50 mmHg (38-42) 62 mmHg (38-42) Pressure CO2 Arterial Blood Partial 481 mmHG 94 mmHg 83 mmHg Pressure O2 (61-120) (61-120) (61-120) Arterial Blood Oxygen Content 20.1 Vol % 18.9 Vol % 17.5 Vol % (12.0-20.0) (12.0-20.0) (12.0-20.0) Arterial Blood 1.9 % (0-4) 1.5 % (0-4) 0.9 % (0-4) Carboxyhemoglobin Arterial Blood Methemoglobin 2.4 % (0-2) 1.3 % (0-2) 1.0 % (0-2) Blood Gas Hemoglobin 14.1 G/DL 14.3 G/DL 13.5 G/DL (12.0-16.0) (12.0-16.0) (12.0-16.0) Oxygen Delivery Device VENTILATOR VENTILATOR VENTILATOR Blood Gas Ventilator Setting VAC/12/500/PEEP5 AC AC 14/550/7PEEP 14/550/PEEP7 Blood Gas Inspired Oxygen 100 % 40 % 40 % Imaging Chest x-ray no acute findings Objective Remarks GENERAL: 70yo F who is intubated sedated with propofol fentanyl, breathing about the vent a synchronous agitated SKIN: Warm and dry. HEAD: Atraumatic. Normocephalic. ENT: Orotracheally intubated NECK: Trachea midline. No JVD. CARDIOVASCULAR: Tachycardic in the 110s. No murmurs RESPIRATORY: Air entry equal bilaterally, severe bilateral expiratory wheezing. GASTROINTESTINAL: Abdomen soft, non-tender, nondistended. Well-healed previous surgical scar MUSCULOSKELETAL: No obvious deformities. No clubbing. No cyanosis. No edema. NEUROLOGICAL: Intubated sedated. Moving all extremities not following commands Urinary Catheter: Yes Date of Insertion: Sep 30, 2016 Vascular Central Line Catheter: No A/P Assessment and Plan NEURO: -Propofol fentanyl and Versed infusion for sedation and ventilator synchrony -Begin Sedation vacation RESP: Acute hypoxemic respiratory failure Acute COPD exacerbation Chronic COPD on 2 L home oxygen -Emergently intubated and placed on mechanical ventilation ACV 14/550/7 titrate FiO2 to keep saturation about 90% -Closely monitored avoid entrapping because of significant wheezing -Continue Solu-Medrol 60 mg IV every 8 hours -DuoNeb every 4 hours scheduled and every 2 hours when necessary. Symbicort 2 puffs every 12hrs CV: Hypotension due to sedation Tachycardia/SIRS Troponin elevation, from severe hypoxemia and COPD exacerbation -Normal saline IV fluids 2L and 84 ml per hour -Lactic acid is normal, hypotension most likely sedation induced -Use Levophed as needed to keep MAP above 65 -Mild troponin elevation most likely secondary to severe hypoxemia, stress induced -F/U2-D echo start aspirin, low-dose Coreg -I don't see an indication for cardiology consult at this time. If echo shows wall motion abnormalities will consult cardiology -Hold Benzapril continue simvastatin GI: -Nothing by mouth, - IV Protonix, Colace for bowel regimen : -Monitor renal function closely. Abreu catheter. ID: -Check sputum culture, blood culture - Empiric Levaquin 750 mg every 24 hours for COPD exacerbation HEME: -Monitor CBC, CMP, coags -Continue heparin infusion, CT PE imaging studies negative ENDO: Mild hyperglycemia most likely stress induced -Sliding-scale insulin if needed -Electrolyte replacement per protocol PROPH: Bilateral lower extremity SCDs. Lovenox for DVT prophylaxis. Protonix for GI prophylaxis LINES: -Utilize peripheral IVs, central line if needed my billing statement This patient remains critically ill with one or more organ systems which are or may become a threat to life. I have spent in excess of 47 minutes discontinuously in the care and management of this patient. This time is exclusive of procedures, and includes, but is not limited to, evaluation of the patient, review of the medical record, discussions with family, consultants, nursing staff, or respiratory therapy, and documentation in the medical record. Physician Kalli Martinez MD Oct 01, 2016 10:31
--- NOTE | 2016-10-01 12:18 | MB ---
cc: LINDA NOBLE MD DATE OF CONSULTATION: 10/01/2016. REASON FOR CONSULTATION: Non-ST elevation KY. HISTORY OF PRESENT ILLNESS: Ms. Sandoval is a 70-year-old female who does have a history of COPD. She presented in respiratory distress and is currently intubated on the ventilator. She was noted to have an elevated troponin and cardiology was subsequently consulted. Her history is essentially per the records. The patient was brought in with an oxygen saturation of 69% on 2 liters and a pH of 7.25 prior to intubation. PAST MEDICAL HISTORY: Significant for: 1. Hypertension. 2. Hyperlipidemia. 3. Severe COPD on home oxygen. 4. Uterine cancer. 5. Anxiety. 6. Gastroesophageal reflux disease (GERD). PAST SURGICAL HISTORY: Her surgical history includes: 1. Appendectomy. 2. Cholecystectomy. 3. Total hysterectomy. SOCIAL HISTORY: Does include a 50 pack/year smoking history and still smoking on home oxygen. FAMILY HISTORY: Not obtainable. REVIEW OF SYSTEMS: Not obtainable. PHYSICAL EXAMINATION: VITAL SIGNS: On physical examination, vital signs are 83, 90/67, temperature of 97.8. GENERAL: In general, she is a frail elderly lady who is intubated and sedated. NECK: Her neck is free of jugular venous distention. LUNGS: The lungs are wheezing and decreased throughout. CARDIOVASCULAR: On cardiovascular examination, she has a normal S1 and S2. I do not appreciate any murmurs, rubs or gallops. ABDOMEN: The abdomen is soft. EXTREMITIES: Free from edema. EKGS: EKG shows sinus tachycardia. LAB VALUES: Significant for a troponin of 0.50 / 2.2 / 3.58. Her creatinine is 0.73. Blood gases show a current pH of 7.16. IMPRESSIONS: 1. Non-ST elevation myocardial infarction - I do agree that the patient likely has had a secondary KY. Echocardiogram will be needed to help further evaluate for this. At this point, she is a poor revascularization candidate should this turn sewer to be a primary KY. The heparin would be reasonable to discontinue if her echocardiogram shows normal left ventricular function. 2. COPD - respiratory failure - this is being managed by the foil stamp operator. Juanita Perkins/JULIA /11:16 AM /12:11 PM
[2016-10-01 12:21] LABS: APTT (PATIENT) 97.9 SEC (24.3-30.1)
[2016-10-01 17:33] LABS: APTT (PATIENT) 98.4 SEC (24.3-30.1)
--- NOTE | 2016-10-01 18:33 | EKG ---
Date Performed: 09/30/2016 Time Performed: 18:57:05 PTAGE: 70 years EKG: Sinus tachycardia CONSIDER SEPTAL MYOCARDIAL INFARCTION ABNORMAL ECG PREVIOUS TRACING : 09/05/2015 11.36 DOCTOR: Mahendra Britt Interpretating Date/Time 10/01/2016 18:31:47
[2016-10-01] MEDS: BUDESONIDE-FORMOTEROL 160/4.5 MCG INHALER INH SCH (19:12)
[2016-10-01 20:30] LABS: APTT (PATIENT) 66.5 SEC (24.3-30.1)
[2016-10-01] MEDS: LEVOFLOXACIN 750 MG PREMIX INJ 150 ML IV SCH (21:11)
[2016-10-01 22:56] LABS: APTT (PATIENT) 80.5 SEC (24.3-30.1)
[2016-10-02] VITALS (18 sets, daily range): BP systolic 98–201; BP diastolic 71–126; PULSE 83–135; RESP 14–21; TEMP 97.9–98.6; O2SAT 92–99
[2016-10-02] MEDS: RESP: ALBUTEROL 2.5 MG/IPRATROPIUM 0.5 MG NEB (SCH) NEB ×6 (03:44→23:08)
[2016-10-02] MEDS: CHLORHEXIDINE GLUCONATE 2 % 1 PACK (2 CLOTHS) TOP SCH (03:50)
[2016-10-02] MEDS: MIDAZOLAM 100 MG/ML INJ 100 ML IV SCH (03:51)
[2016-10-02 04:53] LABS: APTT (PATIENT) 61.6 SEC (24.3-30.1)
[2016-10-02] MEDS: methylPREDNISolone SOD SUCC 125 MG/2 ML VIAL IV PUSH SCH ×3 (04:56→18:00)
[2016-10-02 06:06] LABS: BLOOD GAS BASE EXCESS -4.7 mmol/L (-2-2); BLOOD GAS HCO3 22 mmol/L (22-26); BLOOD GAS METHEMOGLOBIN 1.2 % (0-2); BLOOD GAS O2 HGB SATURATION 91 % (90-100); BLOOD GAS OXYGEN CONTENT 17.6 Vol % (12.0-20.0); BLOOD GAS PCO2 57 mmHg (38-42); BLOOD GAS PO2 71 mmHg (61-120); BLOOD GAS TOTAL HGB 13.7 G/DL (12.0-16.0); TEMP CORR TO 98.6
[2016-10-02 06:07] LABS: CRITICAL VALUE YES; DRAW SITE RT RADIAL; FIO2 45 %; NUMBER OF ARTERIAL PUNCTURES 1; OXYGEN DEVICE VENTILATOR; STAT NO; ULNAR PULSE PRESENT; VENT SETTINGS AC 14/550/7PEEP
--- NOTE | 2016-10-02 06:44 | RADRPT ---
EXAM DATE/TIME: 10/02/2016 05:47 [facility] COMPARISON: CHEST SINGLE AP, October 01, 2016, 5:53. INDICATIONS : Shortness of breath, possible pulmonary disease. MEDICAL HISTORY : Chronic obstructive pulmonary disease. SURGICAL HISTORY : None. ENCOUNTER: Subsequent ACUITY: 3 days PAIN SCORE: Non-responsive. LOCATION: Bilateral chest FINDINGS: Endotracheal tube, nasogastric tube and right subclavian line are present in good position. Mild left base parenchymal opacities grossly unchanged. Cardiac contours are unchanged. CONCLUSION: Stable chest appearance. Oni Zamora MD on October 02, 2016 at 6:43 Board Certified Radiologist. This report was verified electronically.
[2016-10-02 07:07] LABS: HEMATOCRIT 40.8 % (35.0-46.0); MEAN CORPUSCULAR HEMOGLOBIN 28.8 PG (27.0-34.0); PLATELET COUNT 120 TH/MM3 (150-450); RED BLOOD COUNT 4.53 MIL/MM3 (4.00-5.30); RED CELL DISTRIBUTION WIDTH 15.8 % (11.6-17.2); REVIEW FLAG FINAL; WHITE BLOOD COUNT 11.6 TH/MM3 (4.0-11.0)
[2016-10-02 07:20] LABS: MAGNESIUM 2.3 MG/DL (1.5-2.5); POTASSIUM 4.6 MEQ/L (3.5-5.1)
[2016-10-02] MEDS: PROPOFOL 1000 MG/100 ML INJ 100 ML IV SCH ×3 (07:20→20:12)
[2016-10-02] MEDS: CHLORHEXIDINE 0.12% (ORAL KIT) 15 ML CUP MT SCH ×2 (08:05→20:13)
[2016-10-02] MEDS: PANTOPRAZOLE SODIUM 40 MG VIAL IV SCH (08:06)
[2016-10-02] MEDS: SODIUM CHLORIDE 0.9% FLUSH 5 ML FLUSH IVF SCH ×2 (08:06→20:13)
[2016-10-02] MEDS: PRAVASTATIN SOD 40 MG TAB PO SCH (08:06)
[2016-10-02] MEDS: CARVEDILOL 3.125 MG TAB PO SCH ×2 (08:06→20:12)
[2016-10-02] MEDS: ASPIRIN 81 MG CHEW TAB TUBE SCH (09:07)
[2016-10-02] MEDS ORDERED: METOPROLOL TARTRATE 5 MG/5 ML VIAL IV PUSH ONE (10:15)
--- NOTE | 2016-10-02 10:55 | EC ---
Study Study Date:10/01/2016 STUDY CONCLUSIONS SUMMARY LEFT VENTRICLE: The cavity size was normal. Wall thickness was normal. Systolic function was mildly to moderately reduced. The estimated ejection fraction was in the range of 40% to 45%. Wall motion was normal; there were no regional wall motion abnormalities. If LV function is below 40, please consider prescribing an ACEI or ARB or document rationale for non-use. PROCEDURE DATA STUDY STATUS: Elective. Procedure: Transthoracic echocardiography. Image quality was poor. Scanning was performed from the parasternal, apical, and subcostal acoustic windows. Study completion: The patient tolerated the procedure well. Transthoracic echocardiography. M-mode, complete 2D, complete spectral Doppler, and color Doppler. Patient status: Inpatient. CARDIAC ANATOMY LEFT VENTRICLE: The cavity size was normal. Wall thickness was normal. Systolic function was mildly to moderately reduced. The estimated ejection fraction was in the range of 40% to 45%. Wall motion was normal; there were no regional wall motion abnormalities. AORTIC VALVE: Trileaflet; normal thickness leaflets. Doppler: Transvalvular velocity was within the normal range. There was no stenosis. No regurgitation. AORTA: Aortic root: The aortic root was normal in size. MITRAL VALVE: Structurally normal valve. Doppler: Transvalvular velocity was within the normal range. There was no evidence for stenosis. No regurgitation. LEFT ATRIUM: The atrium was normal in size. RIGHT VENTRICLE: The cavity size was normal. Wall thickness was normal. PULMONIC VALVE: Doppler: Transvalvular velocity was within the normal range. There was no evidence for stenosis. No regurgitation. TRICUSPID VALVE: Structurally normal valve. Doppler: Transvalvular velocity was within the normal range. No regurgitation. PULMONARY ARTERY: The main pulmonary artery was normal-sized. Systolic pressure was within the normal range. RIGHT ATRIUM: The atrium was normal in size. PERICARDIUM: There was no pericardial effusion. SYSTEMIC VEINS: Inferior vena cava: The vessel was normal in size. BASIC MEASUREMENTS ADULT Normal Left ventricle LV internal dimension, ED, chordal level, *31.1 mm 43-52 PLAX LV internal dimension, ES, chordal level, 26 mm 23-38 PLAX Fractional shortening, chordal level, PLAX *16 % >29 LV posterior wall thickness, ED 11.7 mm IVS/LVPW ratio, ED 1.15 <1.3 Ventricular septum Septal thickness, ED 13.4 mm Aortic valve Leaflet separation 21 mm 15-26 Right ventricle RV internal dimension, ED, PLAX 24.4 mm 19-38 BASIC MEASUREMENTS ADULT Normal Aortic valve Leaflet separation 21 mm 15-26 Aorta Root diameter, ED 24 mm 20-37 Left atrium Anterior-posterior dimension, ES 25 mm 19-40 LA/aortic root ratio 1.04 DOPPLER MEASUREMENTS ADULT Normal Main pulmonary artery Pressure, S 28 mm Hg =30 Tricuspid valve Regurgitant peak velocity 213 cm/s Peak RV-RA gradient, S 18 mm Hg Maximal regurgitant velocity 213 cm/s Systemic veins Estimated CVP 10 mm Hg Right ventricle RV pressure, S 28 mm Hg <30 LEGEND: Mean values are shown as u=mean value. Asterisk (*) paiz values outside specified normal range. Prepared and signed by Mahendra Britt [id number]
[2016-10-02] MEDS ORDERED: HEPARIN 25,000 UNITS-D5W 250 ML - PREMIX IV SCH (11:00)
[2016-10-02] MEDS ORDERED: HEPARIN SODIUM - IV 10,000 UNITS/10 ML VIAL IV PRN ×2 (11:00)
--- NOTE | 2016-10-02 11:10 | HHI.CCPN ---
Subjective Remarks/Hospital Course Patient is a 78-year-old white female with past medical history significant for COPD on 2L home O2, HTN, anxiety who was brought in [place] ER by [facility] for respiratory distress. Apparently patient had been increasingly short of breath for 1 day and used her nebulizer treatments without relief. Patient's oxygen saturation was 69% on 2 LNC on [facility] arrival and was given duonebsx3 and methylprednisolone 125mg IV. In the emergency department patient was very tachypneic hypoxic and was immediately placed on BIPAP. Patient remained tachypneic in respiratory distress on BiPAP and was intubated and placed on mechanical ventilation I evaluated the patient in the ED. Patient is asynchronous and tachypneic on the ventilator, agitated on sedation. I have requested neuromuscular paralysis 50 mg rocuronium 1. ABG shows pH 7.25 PCO2 of 56 and PO2 481. Patient will be treated with IV Solu-Medrol and DuoNeb scheduled breathing treatments and empiric Levaquin will be added for COPD exacerbation. Patient has mild troponin elevation no acute EKG changes. This is most likely from severe COPD exacerbation and severe hypoxemia. 10/01: The patient continues to have ventilator dyssynchrony, sedation increased. Plan for CPAP trials this afternoon. 10/02:The patient continues on Heparin infusion, echo performed awaiting results.CPAP trials attempted this am, unsuccessful. Elevation noted in WBC, possibly secondary to steroids continues on Levaquin, will change to Zosyn to expand coverage with noted pulmonary opacities on CXR. Objective Vital Signs Date Time Temp Pulse Resp B/P Pulse Ox O2 Delivery O2 Flow Rate FiO2 10/02/16 09:46 45 10/02/16 07:41 94 10/02/16 06:00 85 10/02/16 04:00 98.0 14 106/72 09/30/16 20:04 Auto-Vent 09/30/16 18:19 10 Intake and Output 10/01/16 10/01/16 10/02/16 08:00 16:00 00:00 Intake Total 1547 ml 1599 ml 714 ml Output Total 475 ml 450 ml 250 ml Balance 1072 ml 1149 ml 464 ml Result Diagram: 10/02/16 0620 10/02/16 0620 Other Results Laboratory Tests Test 10/02/16 05:52 Blood Gas Puncture Site RT RADIAL Blood Gas Patient Temperature 98.6 Blood Gas HCO3 22 mmol/L (22-26) Blood Gas Base Excess -4.7 mmol/L (-2-2) Blood Gas Oxygen Saturation 91 % (90-100) Arterial Blood pH 7.21 (7.380-7.420) Arterial Blood Partial 57 mmHg (38-42) Pressure CO2 Arterial Blood Partial 71 mmHg Pressure O2 (61-120) Arterial Blood Oxygen Content 17.6 Vol % (12.0-20.0) Arterial Blood 1.0 % (0-4) Carboxyhemoglobin Arterial Blood Methemoglobin 1.2 % (0-2) Blood Gas Hemoglobin 13.7 G/DL (12.0-16.0) Oxygen Delivery Device VENTILATOR Blood Gas Ventilator Setting AC 14/550/7PEEP Blood Gas Inspired Oxygen 45 % Imaging Chest x-ray no acute findings Objective Remarks GENERAL: 70yo F who is intubated sedated with propofol fentanyl, breathing about the vent a synchronous agitated SKIN: Warm and dry. HEAD: Atraumatic. Normocephalic. ENT: Orotracheally intubated NECK: Trachea midline. No JVD. CARDIOVASCULAR: Tachycardic in the 110s. No murmurs RESPIRATORY: Air entry equal bilaterally, severe bilateral expiratory wheezing. GASTROINTESTINAL: Abdomen soft, non-tender, nondistended. Well-healed previous surgical scar MUSCULOSKELETAL: No obvious deformities. No clubbing. No cyanosis. No edema. NEUROLOGICAL: Intubated sedated. Moving all extremities not following commands Urinary Catheter: Yes Date of Insertion: Sep 30, 2016 Vascular Central Line Catheter: No A/P Assessment and Plan NEURO: -Pt not following commands off sedation, moving extremities x 4 -Begin Sedation vacation - D/C Midazolam infusion -Continue Fentanyl and Propofol infusion for ventilator synchrony RESP: Acute hypoxemic respiratory failure Acute COPD exacerbation Chronic COPD on 2 L home oxygen -Emergently intubated and placed on mechanical ventilation ACV 550/7 titrate FiO2 to keep saturation about 90% -Closely monitored avoid entrapping because of significant wheezing -Continue Solu-Medrol 60 mg IV every 8 hours -DuoNeb every 4 hours scheduled and every 2 hours when necessary. Symbicort 2 puffs every 12hrs -Continue daily CPAP trials CV: Hypotension due to sedation Tachycardia/SIRS Troponin elevation, from severe hypoxemia and COPD exacerbation NSTEMI -Normal saline IV at KVO -Lactic acid is normal, hypotension most likely sedation induced -Use Levophed as needed to keep MAP above 65mmHg -Mild troponin elevation most likely secondary to severe hypoxemia, stress induced -F/U 2-D echo start aspirin, low-dose Coreg-Continue Heparin and await ECHO report regarding wall motion abnormalities -Dr. Glynn , Cardiology on board . Troponins resulted 2.14->3.47->2.14 -Hold Benzapril continue simvastatin GI: -Begin tube feeds Jevity 1.5 , goal rate 55cc/hr - IV Protonix, Colace for bowel regimen : -Monitor renal function closely. Abreu catheter. ID: -Check sputum culture, blood culture - Empiric Levaquin 750 mg day 2,( dc'd ) , expanded coverage Zosyn q 6hr, for COPD exacerbation HEME: -Monitor CBC, CMP, coags -Continue heparin infusion, CT PE imaging studies negative ENDO: Mild hyperglycemia most likely stress induced -Sliding-scale insulin if needed -Electrolyte replacement per protocol PROPH: Bilateral lower extremity SCDs. Lovenox for DVT prophylaxis. Protonix for GI prophylaxis LINES: -Utilize peripheral IVs, central line if needed This patient remains critically ill with one or more organ systems which are or may become a threat to life. I have spent in excess of 35 minutes discontinuously in the care and management of this patient. This time is exclusive of procedures, and includes, but is not limited to, evaluation of the patient, review of the medical record, discussions with family, consultants, nursing staff, or respiratory therapy, and documentation in the medical record. Physician Kalli Martinez MD Oct 02, 2016 11:10
[2016-10-02] MEDS: BUDESONIDE-FORMOTEROL 160/4.5 MCG INHALER INH SCH ×2 (11:29→19:52)
[2016-10-02] MEDS: PIPERACIL-TAZO 3.375 GM PREMIX 50 ML IV SCH ×3 (11:39→23:18)
[2016-10-02] MEDS: SODIUM CHLOR 0.9% 1000 ML INJ 1,000 ML IV SCH (11:42)
[2016-10-02 11:50] LABS: APTT (PATIENT) 28.9 SEC (24.3-30.1)
--- NOTE | 2016-10-02 12:51 | PD.CARD.PN ---
Subjective Subjective Remarks Pt sedated on vent Objective Medications Current Medications Medications (Trade) Dose Ordered Sig/[place] Route Start Time Stop Time Status Last Admin Fentanyl Citrate 250 ml @ 0 mls/hr TITRATE IV 09/30/16 19:00 09/30/16 19:09 (NS 1000 ml Inj) 1,000 ml @ 75 mls/hr [id number] IV 09/30/16 19:07 10/02/16 11:42 (NS Flush) 2 ml UNSCH PRN IVF 09/30/16 19:15 (NS Flush) 2 ml BID IVF 09/30/16 21:00 10/02/16 08:06 (Tylenol) 650 mg Q6H PRN PO 09/30/16 19:15 (fentaNYL INJ) 50 mcg Q1H PRN IV 09/30/16 19:15 (Peridex 0.12% Liq) 15 ml BID@08,20 MT 09/30/16 20:00 10/02/16 08:05 (Protonix Inj) 40 mg DAILY IV 10/01/16 09:00 10/02/16 08:06 Miscellaneous Information 1 [id number] XX 09/30/16 19:15 09/30/16 19:15 (Chlorhexidine 2% Cloth) 3 pack Taper DAILY@04 TOP 10/01/16 04:00 09/27/17 03:59 10/02/16 03:50 Chlorhexidine Gluconate 3 pack 3 pack UNSCH PRN TOP 09/30/16 19:15 (Diprivan 1000 Mg/100ml Inj) 100 ml @ 0 mls/hr TITRATE IV 09/30/16 19:15 10/02/16 11:56 Methylprednisolone Sodium Succinate 60 mg 60 mg Q6HR IV PUSH 10/01/16 00:00 10/02/16 11:39 Potassium Chloride 100 ml @ 50 mls/hr Q2H PRN IV 09/30/16 19:15 (KCl 20 Meq Premix Inj) 100 ml @ 50 mls/hr Q2H PRN IV 09/30/16 19:15 Potassium Chloride 40 meq 40 meq UNSCH PRN PO/TUBE 09/30/16 19:15 Potassium Chloride 100 ml @ 25 mls/hr UNSCH PRN IV 09/30/16 19:15 Potassium Chloride 100 ml @ 50 mls/hr Q2H PRN IV 09/30/16 19:15 (Magnesium Sulfate Inj/NS Inj) 100 ml @ 50 mls/hr UNSCH PRN IV 09/30/16 19:15 Magnesium Oxide 800 mg 800 mg UNSCH PRN PO 09/30/16 19:15 (Magnesium Sulfate Inj/NS Inj) 100 ml @ 50 mls/hr UNSCH PRN IV 09/30/16 19:15 Potassium Phosphate 2000 mg 2,000 mg Q4H PRN PO 09/30/16 19:15 (Sodium Phosphate Inj/NS 250 ml Inj) 250 ml @ 42 mls/hr UNSCH PRN IV 09/30/16 19:15 (KCl 40 Meq/30 ml Liq) 40 meq UNSCH PRN PO/TUBE 09/30/16 19:15 Potassium Phosphate 2000 mg 2,000 mg UNSCH PRN PO/TUBE 09/30/16 19:15 (Potassium Phosphate Inj/NS 250 ml Inj) 260 ml @ 42 mls/hr UNSCH PRN IV 09/30/16 19:15 (Symbicort 160-4.5 Inh) 2 puff Q12HR INH 09/30/16 21:00 10/02/16 11:29 (Aspirin Chew) 81 mg DAILY TUBE 09/30/16 20:30 10/02/16 09:07 (Coreg) 3.125 mg Q12HR PO 09/30/16 21:00 10/02/16 08:06 (Pravachol) 40 mg DAILY PO 10/01/16 09:00 10/02/16 08:06 Protein 1 pack 1 pack TID G-TUBE 10/02/16 13:00 (Heparin-D5W Inj) 250 ml @ 0 mls/hr TITRATE IV 10/02/16 11:00 (Heparin Inj) 5,000 units UNSCH PRN IV 10/02/16 11:00 Heparin Sodium (Porcine) 2500 units 2,500 units UNSCH PRN IV 10/02/16 11:00 (Zosyn 3.375 Gm Premix) 50 ml @ 100 mls/hr Q6H IV 10/02/16 11:00 10/02/16 11:39 Vital Signs / I&O Vital Signs Date Time Temp Pulse Resp B/P Pulse Ox O2 Delivery O2 Flow Rate FiO2 10/02/16 11:32 95 45 10/02/16 09:46 45 10/02/16 07:41 94 45 10/02/16 06:00 85 10/02/16 04:20 96 45 10/02/16 04:00 85 10/02/16 04:00 98.0 85 14 106/72 95 10/02/16 04:00 40 10/02/16 02:00 83 10/02/16 00:00 97.9 87 14 98/71 95 10/02/16 00:00 87 10/02/16 00:00 40 10/01/16 23:50 94 45 10/01/16 22:00 97 10/01/16 20:00 40 10/01/16 20:00 98.4 101 14 103/74 95 10/01/16 20:00 101 10/01/16 19:11 94 45 10/01/16 18:00 97 10/01/16 16:00 40 10/01/16 16:00 97 10/01/16 16:00 98.6 93 15 113/77 99 10/01/16 15:40 93 45 10/01/16 14:00 93 I/O 10/01/16 10/01/16 10/01/16 10/02/16 10/02/16 10/02/16 07:00 15:00 23:00 07:00 15:00 23:00 Intake Total 1547 ml 1599 ml 714 ml 610 ml Output Total 475 ml 450 ml 250 ml 150 ml Balance 1072 ml 1149 ml 464 ml 460 ml Intake Oral 0 ml IV Total 1547 ml 1599 ml 714 ml 610 ml TPN/PPN 0 ml Output Urine Total 475 ml 450 ml 250 ml 150 ml Stool Total 0 ml 0 ml 0 ml # Voids 1 # Bowel Movements 0 Physical Exam GENERAL: Well developed, well nourished. No acute distress. HEENT: Jugular venous pressure is normal. CHEST: Lungs clear to auscultation bilaterally. Unlabored respiratory effort. CARDIAC: Regular rate and rhythm without S3, S4, or murmur. ABDOMEN: Soft, nontender, no hepatosplenomegaly. Bowel sounds present. EXTREMITIES: No clubbing, cyanosis, or edema. Laboratory Laboratory Tests Test 10/01/16 10/01/16 10/01/16 10/02/16 15:30 19:30 22:00 04:00 Activated Partial 98.4 SEC 66.5 SEC 80.5 SEC 61.6 SEC Thromboplast Time Troponin I 2.14 NG/ML Test 10/02/16 10/02/16 10/02/16 05:52 06:20 10:45 Blood Gas Puncture Site RT RADIAL Blood Gas Patient Temperature 98.6 Blood Gas HCO3 22 mmol/L Blood Gas Base Excess -4.7 mmol/L Blood Gas Oxygen Saturation 91 % Arterial Blood pH 7.21 Arterial Blood Partial 57 mmHg Pressure CO2 Arterial Blood Partial 71 mmHg Pressure O2 Arterial Blood Oxygen Content 17.6 Vol % Arterial Blood 1.0 % Carboxyhemoglobin Arterial Blood Methemoglobin 1.2 % Blood Gas Hemoglobin 13.7 G/DL Oxygen Delivery Device VENTILATOR Blood Gas Ventilator Setting AC 14/550/7PEEP Blood Gas Inspired Oxygen 45 % White Blood Count 11.6 TH/MM3 Red Blood Count 4.53 MIL/MM3 Hemoglobin 13.1 GM/DL Hematocrit 40.8 % Mean Corpuscular Volume 90.0 FL Mean Corpuscular Hemoglobin 28.8 PG Mean Corpuscular Hemoglobin 32.0 % Concent Red Cell Distribution Width 15.8 % Platelet Count 120 TH/MM3 Mean Platelet Volume 10.7 FL Sodium Level 144 MEQ/L Potassium Level 4.6 MEQ/L Chloride Level 111 MEQ/L Carbon Dioxide Level 25.0 MEQ/L Anion Gap 8 MEQ/L Blood Urea Nitrogen 29 MG/DL Creatinine 0.57 MG/DL Estimat Glomerular Filtration 105 ML/MIN Rate Random Glucose 128 MG/DL Calcium Level 8.1 MG/DL Phosphorus Level 2.9 MG/DL Magnesium Level 2.3 MG/DL Activated Partial 28.9 SEC Thromboplast Time Assessment and Plan Assessment and Plan 1. Non-ST elevation myocardial infarction - likely secondary to hypoxia - wants conservative measures until respiratory status is clarified -on aspirin and BB, stop heparin gtt 2. Cardiomyopathy-aspirin and BB, BP too low for EDDIE 3. COPD - respiratory failure - this is being managed by the sap business objects developer. 4. Hepatic failure- statin contraindicated Mamta Glynn MD Oct 02, 2016 12:51
[2016-10-02] MEDS: BENEPROTEIN POWDER 1 PACK G-TUBE SCH ×2 (13:00→18:00)
[2016-10-03] VITALS (19 sets, daily range): BP systolic 100–114; BP diastolic 58–72; PULSE 71–97; RESP 14–15; TEMP 97.8–98.1; O2SAT 92–99
[2016-10-03] MEDS: methylPREDNISolone SOD SUCC 125 MG/2 ML VIAL IV PUSH SCH ×4 (00:44→16:27)
[2016-10-03] MEDS: SODIUM CHLOR 0.9% 1000 ML INJ 1,000 ML IV SCH ×2 (00:45→16:28)
[2016-10-03] MEDS: RESP: ALBUTEROL 2.5 MG/IPRATROPIUM 0.5 MG NEB (SCH) NEB ×6 (03:09→23:33)
[2016-10-03] MEDS: CHLORHEXIDINE GLUCONATE 2 % 1 PACK (2 CLOTHS) TOP SCH (04:00)
--- NOTE | 2016-10-03 05:11 | RADRPT ---
EXAM DATE/TIME: 10/03/2016 04:15 [facility] COMPARISON: CHEST SINGLE AP, October 02, 2016, 5:47. INDICATIONS : Shortness of breath, possible pulmonary disease. MEDICAL HISTORY : Chronic obstructive pulmonary disease. SURGICAL HISTORY : None. ENCOUNTER: Subsequent ACUITY: 4 - 6 days PAIN SCORE: Non-responsive. LOCATION: Bilateral chest FINDINGS: A single view of the chest demonstrates the lungs to be hyperinflated but clear. Heart size is normal . Endotracheal, nasogastric tube and right subclavian central venous catheter are stable in position. CONCLUSION: 1. Minimal airspace disease in the left lingula seen previously has resolved. Lungs are clear. 2. Stable position of life support tubes. Pedrito Tavera MD on October 03, 2016 at 5:08 Board Certified Radiologist. This report was verified electronically.
[2016-10-03] MEDS: PIPERACIL-TAZO 3.375 GM PREMIX 50 ML IV SCH ×4 (05:19→22:06)
[2016-10-03 05:47] LABS: AUTOMATED NEUTROPHIL # 11.1 TH/MM3 (1.8-7.7); BASOPHIL % 0.1 % (0.0-2.0); HEMATOCRIT 40.3 % (35.0-46.0); HEMO FLAGS DIFF FINAL; LYMPH % 2.4 % (9.0-44.0); LYMPHOCYTE # 0.3 TH/MM3 (1.0-4.8); MEAN CORPUSCULAR HEMOGLOBIN 28.9 PG (27.0-34.0); MEAN CORPUSCULAR HGB CONC 32.5 % (32.0-36.0); MONO % 3.7 % (0.0-8.0); NEUT % 93.8 % (16.0-70.0); PLATELET COUNT 139 TH/MM3 (150-450); RED BLOOD COUNT 4.53 MIL/MM3 (4.00-5.30); RED CELL DISTRIBUTION WIDTH 16.2 % (11.6-17.2); WHITE BLOOD COUNT 11.9 TH/MM3 (4.0-11.0)
[2016-10-03] MEDS: PROPOFOL 1000 MG/100 ML INJ 100 ML IV SCH ×3 (06:14→20:37)
[2016-10-03 06:20] LABS: BICARBONATE 27.8 MEQ/L (21.0-32.0); MAGNESIUM 2.7 MG/DL (1.5-2.5); POTASSIUM 4.3 MEQ/L (3.5-5.1)
[2016-10-03] MEDS: SODIUM PHOSPHATE INJ 30 MMOL in SODIUM CHLOR 0.9% 250 ML INJ 240 ML IV PRN (08:18)
[2016-10-03] MEDS: CARVEDILOL 3.125 MG TAB PO SCH ×2 (08:18→20:37)
[2016-10-03] MEDS: PRAVASTATIN SOD 40 MG TAB PO SCH (08:18)
[2016-10-03] MEDS: PANTOPRAZOLE SODIUM 40 MG VIAL IV SCH (08:18)
[2016-10-03] MEDS: ASPIRIN 81 MG CHEW TAB TUBE SCH (08:18)
[2016-10-03] MEDS: BUDESONIDE-FORMOTEROL 160/4.5 MCG INHALER INH SCH ×2 (08:19→20:03)
[2016-10-03] MEDS: SODIUM CHLORIDE 0.9% FLUSH 5 ML FLUSH IVF SCH ×2 (08:19→20:37)
[2016-10-03] MEDS: CHLORHEXIDINE 0.12% (ORAL KIT) 15 ML CUP MT SCH ×2 (08:20→20:34)
[2016-10-03] MEDS: BENEPROTEIN POWDER 1 PACK G-TUBE SCH ×3 (08:20→16:28)
--- NOTE | 2016-10-03 10:12 | PD.CARD.PN ---
Subjective Subjective Remarks Sedated on vent Objective Medications Current Medications Medications (Trade) Dose Ordered Sig/Santana Route Start Time Stop Time Status Last Admin Fentanyl Citrate 250 ml @ 0 mls/hr TITRATE IV 09/30/16 19:00 09/30/16 19:09 (NS 1000 ml Inj) 1,000 ml @ 75 mls/hr [id number] IV 09/30/16 19:07 10/03/16 00:45 (NS Flush) 2 ml UNSCH PRN IVF 09/30/16 19:15 (NS Flush) 2 ml BID IVF 09/30/16 21:00 10/03/16 08:19 (Tylenol) 650 mg Q6H PRN PO 09/30/16 19:15 (fentaNYL INJ) 50 mcg Q1H PRN IV 09/30/16 19:15 (Peridex 0.12% Liq) 15 ml BID@08,20 MT 09/30/16 20:00 10/03/16 08:20 (Protonix Inj) 40 mg DAILY IV 10/01/16 09:00 10/03/16 08:18 Miscellaneous Information 1 Q361D XX 09/30/16 19:15 09/30/16 19:15 (Chlorhexidine 2% Cloth) 3 pack Taper DAILY@04 TOP 10/01/16 04:00 09/27/17 03:59 10/03/16 04:00 Chlorhexidine Gluconate 3 pack 3 pack UNSCH PRN TOP 09/30/16 19:15 (Diprivan 1000 Mg/100ml Inj) 100 ml @ 0 mls/hr TITRATE IV 09/30/16 19:15 10/03/16 06:14 Methylprednisolone Sodium Succinate 60 mg 60 mg Q6HR IV PUSH 10/01/16 00:00 10/03/16 05:18 Potassium Chloride 100 ml @ 50 mls/hr Q2H PRN IV 09/30/16 19:15 (KCl 20 Meq Premix Inj) 100 ml @ 50 mls/hr Q2H PRN IV 09/30/16 19:15 Potassium Chloride 40 meq 40 meq UNSCH PRN PO/TUBE 09/30/16 19:15 Potassium Chloride 100 ml @ 25 mls/hr UNSCH PRN IV 09/30/16 19:15 Potassium Chloride 100 ml @ 50 mls/hr Q2H PRN IV 09/30/16 19:15 (Magnesium Sulfate Inj/NS Inj) 100 ml @ 50 mls/hr UNSCH PRN IV 09/30/16 19:15 Magnesium Oxide 800 mg 800 mg UNSCH PRN PO 09/30/16 19:15 (Magnesium Sulfate Inj/NS Inj) 100 ml @ 50 mls/hr UNSCH PRN IV 09/30/16 19:15 Potassium Phosphate 2000 mg 2,000 mg Q4H PRN PO 09/30/16 19:15 (Sodium Phosphate Inj/NS 250 ml Inj) 250 ml @ 42 mls/hr UNSCH PRN IV 09/30/16 19:15 10/03/16 08:18 (KCl 40 Meq/30 ml Liq) 40 meq UNSCH PRN PO/TUBE 09/30/16 19:15 Potassium Phosphate 2000 mg 2,000 mg UNSCH PRN PO/TUBE 09/30/16 19:15 (Potassium Phosphate Inj/NS 250 ml Inj) 260 ml @ 42 mls/hr UNSCH PRN IV 09/30/16 19:15 (Symbicort 160-4.5 Inh) 2 puff Q12HR INH 09/30/16 21:00 10/02/16 19:52 (Aspirin Chew) 81 mg DAILY TUBE 09/30/16 20:30 10/03/16 08:18 (Coreg) 3.125 mg Q12HR PO 09/30/16 21:00 10/03/16 08:18 (Pravachol) 40 mg DAILY PO 10/01/16 09:00 10/03/16 08:18 Protein 1 pack 1 pack TID G-TUBE 10/02/16 13:00 10/03/16 08:20 Heparin Sodium/ Dextrose 250 ml @ 0 mls/hr TITRATE IV 10/02/16 11:00 (Zosyn 3.375 Gm Premix) 50 ml @ 100 mls/hr Q6H IV 10/02/16 11:00 10/03/16 05:19 Vital Signs / I&O Vital Signs Date Time Temp Pulse Resp B/P Pulse Ox O2 Delivery O2 Flow Rate FiO2 10/03/16 08:08 99 45 10/03/16 06:00 84 10/03/16 04:06 94 45 10/03/16 04:00 97.9 88 14 114/72 94 10/03/16 04:00 88 10/03/16 04:00 45 10/03/16 02:00 95 10/03/16 01:18 93 45 10/03/16 00:00 98.0 84 14 104/63 92 10/03/16 00:00 84 10/03/16 00:00 45 10/02/16 22:18 96 45 10/02/16 22:00 91 10/02/16 21:00 108/71 10/02/16 20:00 98.2 135 21 201/126 98 10/02/16 20:00 135 10/02/16 20:00 45 10/02/16 19:49 95 45 10/02/16 16:00 45 10/02/16 16:00 98.6 95 15 126/77 99 10/02/16 16:00 95 10/02/16 15:46 92 45 10/02/16 14:00 94 10/02/16 12:00 98.0 96 14 118/75 97 10/02/16 12:00 96 10/02/16 12:00 45 10/02/16 11:32 95 45 I/O 10/02/16 10/02/16 10/02/16 10/03/16 10/03/16 10/03/16 07:00 15:00 23:00 07:00 15:00 23:00 Intake Total 610 ml 506 ml 1765 ml 860 ml Output Total 150 ml 400 ml 400 ml 450 ml Balance 460 ml 106 ml 1365 ml 410 ml Intake Oral 0 ml IV Total 610 ml 506 ml 1345 ml 580 ml Tube Feeding 320 ml 240 ml Tube Irrigant 100 ml 40 ml Output Urine Total 150 ml 400 ml 400 ml 450 ml Stool Total 0 ml 0 ml 0 ml 0 ml Physical Exam GENERAL: Well developed, well nourished. No acute distress, on vent HEENT: Jugular venous pressure is normal. CHEST: Lungs rhonchi to auscultation bilaterally. Unlabored respiratory effort. CARDIAC: Regular rate and rhythm without S3, S4, or murmur. ABDOMEN: Soft, nontender, no hepatosplenomegaly. Bowel sounds present. EXTREMITIES: No clubbing, cyanosis, or edema. Laboratory Laboratory Tests Test 10/02/16 10/03/16 10:45 04:40 Activated Partial 28.9 SEC Thromboplast Time White Blood Count 11.9 TH/MM3 Red Blood Count 4.53 MIL/MM3 Hemoglobin 13.1 GM/DL Hematocrit 40.3 % Mean Corpuscular Volume 89.0 FL Mean Corpuscular Hemoglobin 28.9 PG Mean Corpuscular Hemoglobin 32.5 % Concent Red Cell Distribution Width 16.2 % Platelet Count 139 TH/MM3 Mean Platelet Volume 10.3 FL Neutrophils (%) (Auto) 93.8 % Lymphocytes (%) (Auto) 2.4 % Monocytes (%) (Auto) 3.7 % Eosinophils (%) (Auto) 0.0 % Basophils (%) (Auto) 0.1 % Neutrophils # (Auto) 11.1 TH/MM3 Lymphocytes # (Auto) 0.3 TH/MM3 Monocytes # (Auto) 0.4 TH/MM3 Eosinophils # (Auto) 0.0 TH/MM3 Basophils # (Auto) 0.0 TH/MM3 CBC Comment DIFF FINAL Differential Comment Sodium Level 144 MEQ/L Potassium Level 4.3 MEQ/L Chloride Level 110 MEQ/L Carbon Dioxide Level 27.8 MEQ/L Anion Gap 6 MEQ/L Blood Urea Nitrogen 35 MG/DL Creatinine 0.57 MG/DL Estimat Glomerular Filtration 105 ML/MIN Rate Random Glucose 174 MG/DL Calcium Level 8.1 MG/DL Phosphorus Level 1.7 MG/DL Magnesium Level 2.7 MG/DL Imaging Last 72 hours Impressions Chest X-Ray 10/03/16 06 Signed Impressions: Service Date/Time: Monday, October 03, 2016 04:15 - CONCLUSION: 1. Minimal airspace disease in the left lingula seen previously has resolved. Lungs are clear. 2. Stable position of life support tubes. Pedrito Tavera MD Chest X-Ray 10/02/16 0000 Signed Impressions: Service Date/Time: Sunday, October 02, 2016 05:47 - CONCLUSION: Stable chest appearance. Oni Zamora MD Chest X-Ray 10/01/16 0600 Signed Impressions: Service Date/Time: Saturday, October 01, 2016 03:13 - CONCLUSION: No focal lung disease Oni Zamora MD Chest X-Ray 10/01/16 0000 Signed Impressions: Service Date/Time: Saturday, October 01, 2016 05:53 - CONCLUSION: Satisfactory central line position with no complication. Oni Zamora MD CT Angiography 10/01/16 0000 Signed Impressions: Service Date/Time: Saturday, October 01, 2016 02:54 - CONCLUSION: No evidence of pulmonary embolism Oni Zamora MD Chest X-Ray 09/30/16 1833 Signed Impressions: Service Date/Time: Friday, September 30, 2016 18:36 - CONCLUSION: COPD. Satisfactory placement of endotracheal and nasogastric tubes. No evidence of acute air space disease or significant congestion. Payam Arteaga MD Assessment and Plan Assessment and Plan 1. Non-ST elevation myocardial infarction - likely secondary to hypoxia - wants conservative measures until respiratory status is clarified - 10/03 no change, on aspirin and BB, 2. Cardiomyopathy-EF 40-45% aspirin and BB, BP too low for EDDIE 3. COPD - respiratory failure - this is being managed by the government employee. 4. Hepatic failure- statin contraindicated Mamta Glynn MD Oct 03, 2016 10:12
[2016-10-03] MEDS: fentaNYL DRIP 250 ML IV SCH (16:28)
--- NOTE | 2016-10-03 17:59 | HHI.CCPN ---
Subjective Remarks/Hospital Course Patient is a 78-year-old white female with past medical history significant for COPD on 2L home O2, HTN, anxiety who was brought in [place] ER by [facility] for respiratory distress. Apparently patient had been increasingly short of breath for 1 day and used her nebulizer treatments without relief. Patient's oxygen saturation was 69% on 2 LNC on [facility] arrival and was given duonebsx3 and methylprednisolone 125mg IV. In the emergency department patient was very tachypneic hypoxic and was immediately placed on BIPAP. Patient remained tachypneic in respiratory distress on BiPAP and was intubated and placed on mechanical ventilation I evaluated the patient in the ED. Patient is asynchronous and tachypneic on the ventilator, agitated on sedation. I have requested neuromuscular paralysis 50 mg rocuronium 1. ABG shows pH 7.25 PCO2 of 56 and PO2 481. Patient will be treated with IV Solu-Medrol and DuoNeb scheduled breathing treatments and empiric Levaquin will be added for COPD exacerbation. Patient has mild troponin elevation no acute EKG changes. This is most likely from severe COPD exacerbation and severe hypoxemia. 34: The patient continues to have ventilator dyssynchrony, sedation increased. Plan for CPAP trials this afternoon. 10/02:The patient continues on Heparin infusion, echo performed awaiting results.CPAP trials attempted this am, unsuccessful. Elevation noted in WBC, possibly secondary to steroids continues on Levaquin, will change to Zosyn to expand coverage with noted pulmonary opacities on CXR. 10/03 no acute issues Objective Vital Signs Date Time Temp Pulse Resp B/P Pulse Ox O2 Delivery O2 Flow Rate FiO2 10/03/16 16:46 99 45 10/03/16 16:00 97.8 86 15 108/63 09/30/16 20:04 Auto-Vent 09/30/16 18:19 10 Intake and Output 10/02/16 10/02/16 10/03/16 08:00 16:00 00:00 Intake Total 610 ml 506 ml 1765 ml Output Total 150 ml 400 ml 400 ml Balance 460 ml 106 ml 1365 ml Result Diagram: 10/03/160 10/03/16 0440 Imaging Chest x-ray no acute findings Objective Remarks GENERAL: 70yo F who is intubated sedated with propofol fentanyl, breathing about the vent a synchronous agitated SKIN: Warm and dry. HEAD: Atraumatic. Normocephalic. ENT: Orotracheally intubated NECK: Trachea midline. No JVD. CARDIOVASCULAR: Tachycardic in the 110s. No murmurs RESPIRATORY: Air entry equal bilaterally, severe bilateral expiratory wheezing. GASTROINTESTINAL: Abdomen soft, non-tender, nondistended. Well-healed previous surgical scar MUSCULOSKELETAL: No obvious deformities. No clubbing. No cyanosis. No edema. NEUROLOGICAL: Intubated sedated. Moving all extremities not following commands Date of Insertion: Sep 30, 2016 A/P Assessment and Plan NEURO: -Pt not following commands off sedation, moving extremities x 4 -Begin Sedation vacation - D/C Midazolam infusion -Continue Fentanyl and Propofol infusion for ventilator synchrony RESP: Acute hypoxemic respiratory failure Acute COPD exacerbation Chronic COPD on 2 L home oxygen -Emergently intubated and placed on mechanical ventilation ACV 14/550/7 titrate FiO2 to keep saturation about 90% -Closely monitored avoid entrapping because of significant wheezing -Continue Solu-Medrol 60 mg IV every 6 hours -DuoNeb every 4 hours scheduled and every 2 hours when necessary. Symbicort 2 puffs every 12hrs -Continue daily CPAP trials CV: Hypotension due to sedation Tachycardia/SIRS Troponin elevation, from severe hypoxemia and COPD exacerbation NSTEMI -Normal saline IV at KVO -Lactic acid is normal, hypotension most likely sedation induced -Use Levophed as needed to keep MAP above 65mmHg -Mild troponin elevation most likely secondary to severe hypoxemia, stress induced -F/U 2-D echo start aspirin, low-dose Coreg-Continue Heparin and await ECHO report regarding wall motion abnormalities -Dr. Glynn , Cardiology input appreciated. Troponins resulted 2.14->3.47- >2.14 -Hold Benzapril continue simvastatin GI: -Begin tube feeds Jevity 1.5 , goal rate 55cc/hr - IV Protonix, Colace for bowel regimen : -Monitor renal function closely. Abreu catheter. ID: -Check sputum culture, blood culture - Empiric Levaquin 750 mg day 2,( dc'd ) , expanded coverage Zosyn q 6hr, for COPD exacerbation HEME: -Monitor CBC, CMP, coags -Continue heparin infusion, CT PE imaging studies negative ENDO: Mild hyperglycemia most likely stress induced -Sliding-scale insulin if needed -Electrolyte replacement per protocol PROPH: Bilateral lower extremity SCDs. Lovenox for DVT prophylaxis. Protonix for GI prophylaxis LINES: -Utilize peripheral IVs, central line if needed Critical Care: The total critical care time was 35 minutes. Time to perform other separately billable procedures was not included in the critical care time. Dhruv Tomas MD Oct 03, 2016 17:58
[2016-10-04] VITALS (19 sets, daily range): BP systolic 98–181; BP diastolic 56–106; PULSE 71–123; RESP 14–20; TEMP 97.9–100.7; O2SAT 94–100
[2016-10-04] MEDS: PROPOFOL 1000 MG/100 ML INJ 100 ML IV SCH ×7 (00:41→22:12)
[2016-10-04] MEDS: methylPREDNISolone SOD SUCC 125 MG/2 ML VIAL IV PUSH SCH ×4 (00:41→17:00)
[2016-10-04] MEDS: SODIUM PHOSPHATE INJ 30 MMOL in SODIUM CHLOR 0.9% 250 ML INJ 240 ML IV PRN (00:41)
[2016-10-04] MEDS: SODIUM CHLOR 0.9% 1000 ML INJ 1,000 ML IV SCH (03:07)
[2016-10-04] MEDS: RESP: ALBUTEROL 2.5 MG/IPRATROPIUM 0.5 MG NEB (SCH) NEB ×9 (03:13→23:58)
[2016-10-04] MEDS: CHLORHEXIDINE GLUCONATE 2 % 1 PACK (2 CLOTHS) TOP SCH (04:00)
[2016-10-04] MEDS: PIPERACIL-TAZO 3.375 GM PREMIX 50 ML IV SCH ×4 (04:13→22:12)
[2016-10-04 04:53] LABS: BLOOD GAS BASE EXCESS 0.3 mmol/L (-2-2); BLOOD GAS CARBOXYHEMOGLOBIN 0.8 % (0-4); BLOOD GAS HCO3 27 mmol/L (22-26); BLOOD GAS METHEMOGLOBIN 0.9 % (0-2); BLOOD GAS O2 HGB SATURATION 97 % (90-100); BLOOD GAS OXYGEN CONTENT 16.7 Vol % (12.0-20.0); BLOOD GAS PCO2 62 mmHg (38-42); BLOOD GAS PO2 139 mmHg (61-120); CRITICAL VALUE YES; DRAW SITE RT RADIAL; FIO2 40 %; NUMBER OF ARTERIAL PUNCTURES 1; OXYGEN DEVICE VENTILATOR; STAT NO; TEMP CORR TO 98.6; ULNAR PULSE PRESENT; VENT SETTINGS AC 550/14/7 PEEP
[2016-10-04] MEDS: fentaNYL DRIP 250 ML IV SCH ×2 (05:08→14:53)
[2016-10-04 05:32] LABS: AUTOMATED NEUTROPHIL # 7.8 TH/MM3 (1.8-7.7); BASOPHIL % 0.2 % (0.0-2.0); HEMATOCRIT 37.9 % (35.0-46.0); HEMO FLAGS DIFF FINAL; LYMPH % 3.7 % (9.0-44.0); LYMPHOCYTE # 0.3 TH/MM3 (1.0-4.8); MEAN CELL VOLUME 89.2 FL (80.0-100.0); MEAN CORPUSCULAR HEMOGLOBIN 29.1 PG (27.0-34.0); MEAN CORPUSCULAR HGB CONC 32.6 % (32.0-36.0); MONO % 3.5 % (0.0-8.0); NEUT % 92.6 % (16.0-70.0); PLATELET COUNT 139 TH/MM3 (150-450); RED BLOOD COUNT 4.25 MIL/MM3 (4.00-5.30); RED CELL DISTRIBUTION WIDTH 16.4 % (11.6-17.2); WHITE BLOOD COUNT 8.5 TH/MM3 (4.0-11.0)
[2016-10-04 05:52] LABS: ANION GAP 7 MEQ/L (5-15); AST (GOT) 84 U/L (15-37); BICARBONATE 30.2 MEQ/L (21.0-32.0); BLOOD UREA NITROGEN 35 MG/DL (7-18); CHLORIDE 113 MEQ/L (98-107); GLOMERULAR FILTRATION RATE 97 ML/MIN (>89); MAGNESIUM 2.8 MG/DL (1.5-2.5); POTASSIUM 4.4 MEQ/L (3.5-5.1); SODIUM (NA) 150 MEQ/L (136-145)
[2016-10-04 05:55] LABS: ALKALINE PHOSPHATASE 141 U/L (45-117); ALT (GPT) 160 U/L (10-53); TOTAL BILIRUBIN ADULT 0.3 MG/DL (0.2-1.0)
--- NOTE | 2016-10-04 06:11 | RADRPT ---
EXAM DATE/TIME: 10/04/2016 04:51 [facility] COMPARISON: CHEST SINGLE AP, October 03, 2016, 4:15. INDICATIONS : Shortness of breath. MEDICAL HISTORY : Chronic obstructive pulmonary disease. SURGICAL HISTORY : None. ENCOUNTER: Subsequent ACUITY: 4 - 6 days PAIN SCORE: Non-responsive. LOCATION: Bilateral chest FINDINGS: A single view of the chest demonstrates limited anatomic detail due to respiratory motion artifact. G rossly, the lungs are clear without effusion. Heart size is normal. Life support tubes are all stable in position. CONCLUSION: 1. Limited exam due to respiratory motion artifact. 2. Accounting for the artifact, I believe the lungs remain clear. Life support tubes are stable in po sition. Pedrito Tavera MD on October 04, 2016 at 6:08 Board Certified Radiologist. This report was verified electronically.
--- NOTE | 2016-10-04 07:54 | PD.CARD.PN ---
Subjective Subjective Remarks Pt remains sedated on vent Objective Medications Current Medications Medications (Trade) Dose Ordered Sig/Santana Route Start Time Stop Time Status Last Admin Fentanyl Citrate 250 ml @ 0 mls/hr TITRATE IV 09/30/16 19:00 10/04/16 05:08 (NS 1000 ml Inj) 1,000 ml @ 75 mls/hr [id number] IV 09/30/16 19:07 10/04/16 03:07 (NS Flush) 2 ml UNSCH PRN IVF 09/30/16 19:15 (NS Flush) 2 ml BID IVF 09/30/16 21:00 10/03/16 20:37 (Tylenol) 650 mg Q6H PRN PO 09/30/16 19:15 (fentaNYL INJ) 50 mcg Q1H PRN IV 09/30/16 19:15 (Peridex 0.12% Liq) 15 ml BID@08,20 MT 09/30/16 20:00 10/03/16 20:34 (Protonix Inj) 40 mg DAILY IV 10/01/16 09:00 10/03/16 08:18 Miscellaneous Information 1 Q361D XX 09/30/16 19:15 09/30/16 19:15 (Chlorhexidine 2% Cloth) 3 pack Taper DAILY@04 TOP 10/01/16 04:00 09/27/17 03:59 10/04/16 04:00 Chlorhexidine Gluconate 3 pack 3 pack UNSCH PRN TOP 09/30/16 19:15 (Diprivan 1000 Mg/100ml Inj) 100 ml @ 0 mls/hr TITRATE IV 09/30/16 19:15 10/04/16 04:12 Methylprednisolone Sodium Succinate 60 mg 60 mg Q6HR IV PUSH 10/01/16 00:00 10/04/16 05:08 Potassium Chloride 100 ml @ 50 mls/hr Q2H PRN IV 09/30/16 19:15 (KCl 20 Meq Premix Inj) 100 ml @ 50 mls/hr Q2H PRN IV 09/30/16 19:15 Potassium Chloride 40 meq 40 meq UNSCH PRN PO/TUBE 09/30/16 19:15 Potassium Chloride 100 ml @ 25 mls/hr UNSCH PRN IV 09/30/16 19:15 Potassium Chloride 100 ml @ 50 mls/hr Q2H PRN IV 09/30/16 19:15 (Magnesium Sulfate Inj/NS Inj) 100 ml @ 50 mls/hr UNSCH PRN IV 09/30/16 19:15 Magnesium Oxide 800 mg 800 mg UNSCH PRN PO 09/30/16 19:15 (Magnesium Sulfate Inj/NS Inj) 100 ml @ 50 mls/hr UNSCH PRN IV 09/30/16 19:15 Potassium Phosphate 2000 mg 2,000 mg Q4H PRN PO 09/30/16 19:15 (Sodium Phosphate Inj/NS 250 ml Inj) 250 ml @ 42 mls/hr UNSCH PRN IV 09/30/16 19:15 10/04/16 00:41 (KCl 40 Meq/30 ml Liq) 40 meq UNSCH PRN PO/TUBE 09/30/16 19:15 Potassium Phosphate 2000 mg 2,000 mg UNSCH PRN PO/TUBE 09/30/16 19:15 (Potassium Phosphate Inj/NS 250 ml Inj) 260 ml @ 42 mls/hr UNSCH PRN IV 09/30/16 19:15 (Symbicort 160-4.5 Inh) 2 puff Q12HR INH 09/30/16 21:00 10/03/16 20:03 (Aspirin Chew) 81 mg DAILY TUBE 09/30/16 20:30 10/03/16 08:18 (Coreg) 3.125 mg Q12HR PO 09/30/16 21:00 10/03/16 20:37 (Pravachol) 40 mg DAILY PO 10/01/16 09:00 10/03/16 08:18 Protein 1 pack 1 pack TID G-TUBE 10/02/16 13:00 10/03/16 16:28 Heparin Sodium/ Dextrose 250 ml @ 0 mls/hr TITRATE IV 10/02/16 11:00 (Zosyn 3.375 Gm Premix) 50 ml @ 100 mls/hr Q6H IV 10/02/16 11:00 10/04/16 04:13 Vital Signs / I&O Vital Signs Date Time Temp Pulse Resp B/P Pulse Ox O2 Delivery O2 Flow Rate FiO2 10/04/16 06:00 83 10/04/16 04:13 100 40 10/04/16 04:00 98.3 93 14 114/75 95 10/04/16 04:00 93 10/04/16 04:00 45 10/04/16 02:00 72 10/04/16 01:15 95 40 10/04/16 00:00 71 10/04/16 00:00 45 10/04/16 00:00 98.1 71 14 98/56 94 10/03/16 22:24 96 40 10/03/16 22:00 71 10/03/16 20:00 45 10/03/16 20:00 73 10/03/16 20:00 97.8 73 14 100/58 97 10/03/16 19:59 97 40 10/03/16 18:00 79 10/03/16 16:46 99 45 10/03/16 16:00 97.8 86 15 108/63 96 10/03/16 16:00 80 10/03/16 16:00 45 10/03/16 14:00 77 10/03/16 12:00 97.9 97 15 100/59 96 10/03/16 12:00 45 10/03/16 12:00 77 10/03/16 11:16 97 45 10/03/16 10:00 76 10/03/16 08:08 99 45 10/03/16 08:00 98.1 81 14 111/65 96 10/03/16 08:00 81 10/03/16 08:00 45 I/O 10/03/16 10/03/16 10/03/16 10/04/16 10/04/16 10/04/16 07:00 15:00 23:00 07:00 15:00 23:00 Intake Total 860 ml 1524 ml 1566 ml 1440 ml Output Total 450 ml 350 ml 375 ml 350 ml Balance 410 ml 1174 ml 1191 ml 1090 ml IV Total 580 ml 1015 ml 1061 ml 1097 ml Tube Feeding 240 ml 409 ml 445 ml 343 ml Tube Irrigant 40 ml 60 ml Other 100 ml Output Urine Total 450 ml 350 ml 375 ml 350 ml Stool Total 0 ml 0 ml 0 ml Physical Exam GENERAL: Well developed, well nourished. No acute distress, on vent HEENT: Jugular venous pressure is normal. CHEST: Lungs clear to auscultation bilaterally. Unlabored respiratory effort. CARDIAC: Regular rate and rhythm without S3, S4, or murmur. ABDOMEN: Soft, nontender, no hepatosplenomegaly. Bowel sounds present. EXTREMITIES: No clubbing, cyanosis, or edema. Laboratory Laboratory Tests Test 10/03/16 10/04/16 10/04/16 22:55 04:30 04:55 Phosphorus Level 2.2 MG/DL 3.5 MG/DL Blood Gas Puncture Site RT RADIAL Blood Gas Patient Temperature 98.6 Blood Gas HCO3 27 mmol/L Blood Gas Base Excess 0.3 mmol/L Blood Gas Oxygen Saturation 97 % Arterial Blood pH 7.26 Arterial Blood Partial 62 mmHg Pressure CO2 Arterial Blood Partial 139 mmHg Pressure O2 Arterial Blood Oxygen Content 16.7 Vol % Arterial Blood 0.8 % Carboxyhemoglobin Arterial Blood Methemoglobin 0.9 % Blood Gas Hemoglobin 12.0 G/DL Oxygen Delivery Device VENTILATOR Blood Gas Ventilator Setting AC 550/14/7 PEEP Blood Gas Inspired Oxygen 40 % White Blood Count 8.5 TH/MM3 Red Blood Count 4.25 MIL/MM3 Hemoglobin 12.4 GM/DL Hematocrit 37.9 % Mean Corpuscular Volume 89.2 FL Mean Corpuscular Hemoglobin 29.1 PG Mean Corpuscular Hemoglobin 32.6 % Concent Red Cell Distribution Width 16.4 % Platelet Count 139 TH/MM3 Mean Platelet Volume 10.2 FL Neutrophils (%) (Auto) 92.6 % Lymphocytes (%) (Auto) 3.7 % Monocytes (%) (Auto) 3.5 % Eosinophils (%) (Auto) 0.0 % Basophils (%) (Auto) 0.2 % Neutrophils # (Auto) 7.8 TH/MM3 Lymphocytes # (Auto) 0.3 TH/MM3 Monocytes # (Auto) 0.3 TH/MM3 Eosinophils # (Auto) 0.0 TH/MM3 Basophils # (Auto) 0.0 TH/MM3 CBC Comment DIFF FINAL Differential Comment Sodium Level 150 MEQ/L Potassium Level 4.4 MEQ/L Chloride Level 113 MEQ/L Carbon Dioxide Level 30.2 MEQ/L Anion Gap 7 MEQ/L Blood Urea Nitrogen 35 MG/DL Creatinine 0.61 MG/DL Estimat Glomerular Filtration 97 ML/MIN Rate Random Glucose 185 MG/DL Calcium Level 8.1 MG/DL Magnesium Level 2.8 MG/DL Total Bilirubin 0.3 MG/DL Aspartate Amino Transf 84 U/L (AST/SGOT) Alanine Aminotransferase 160 U/L (ALT/SGPT) Alkaline Phosphatase 141 U/L Total Protein 5.9 GM/DL Albumin 2.4 GM/DL Imaging Last 72 hours Impressions Chest X-Ray 10/04/16 0600 Signed Impressions: Service Date/Time: Tuesday, October 04, 2016 04:51 - CONCLUSION: 1. Limited exam due to respiratory motion artifact. 2. Accounting for the artifact, I believe the lungs remain clear. Life support tubes are stable in position. Pedrito Tavera MD Chest X-Ray 10/03/16 0600 Signed Impressions: Service Date/Time: Monday, October 03, 2016 04:15 - CONCLUSION: 1. Minimal airspace disease in the left lingula seen previously has resolved. Lungs are clear. 2. Stable position of life support tubes. Pedrito Tavera MD Chest X-Ray 10/02/16 0000 Signed Impressions: Service Date/Time: Sunday, October 02, 2016 05:47 - CONCLUSION: Stable chest appearance. Oni Zamora MD Assessment and Plan Assessment and Plan 1. Non-ST elevation myocardial infarction - likely secondary to hypoxia - wants conservative measures until respiratory status is clarified - 10/04 no change, on aspirin and BB, 2. Cardiomyopathy-EF 40-45% global HK - aspirin and BB, BP remains too low for EDDIE 3. COPD - respiratory failure - this is being managed by the civil engineering director. 4. Hepatic failure- statin contraindicated Mamta Glynn MD Oct 04, 2016 07:54
[2016-10-04] MEDS: ASPIRIN 81 MG CHEW TAB TUBE SCH (08:06)
[2016-10-04] MEDS: PRAVASTATIN SOD 40 MG TAB PO SCH (08:06)
[2016-10-04] MEDS: PANTOPRAZOLE SODIUM 40 MG VIAL IV SCH (08:06)
[2016-10-04] MEDS: CARVEDILOL 3.125 MG TAB PO SCH ×2 (08:06→20:14)
[2016-10-04] MEDS: SODIUM CHLORIDE 0.9% FLUSH 5 ML FLUSH IVF SCH ×2 (08:07→20:15)
[2016-10-04] MEDS: BENEPROTEIN POWDER 1 PACK G-TUBE SCH ×3 (08:08→17:00)
[2016-10-04] MEDS: CHLORHEXIDINE 0.12% (ORAL KIT) 15 ML CUP MT SCH ×2 (08:08→20:15)
[2016-10-04] MEDS: BUDESONIDE-FORMOTEROL 160/4.5 MCG INHALER INH SCH ×2 (08:08→19:50)
--- NOTE | 2016-10-04 10:28 | HHI.CCPN ---
Subjective Remarks/Hospital Course Patient is a 78-year-old white female with past medical history significant for COPD on 2L home O2, HTN, anxiety who was brought in [place] ER by [facility] for respiratory distress. Apparently patient had been increasingly short of breath for 1 day and used her nebulizer treatments without relief. Patient's oxygen saturation was 69% on 2 LNC on [facility] arrival and was given duonebsx3 and methylprednisolone 125mg IV. In the emergency department patient was very tachypneic hypoxic and was immediately placed on BIPAP. Patient remained tachypneic in respiratory distress on BiPAP and was intubated and placed on mechanical ventilation I evaluated the patient in the ED. Patient is asynchronous and tachypneic on the ventilator, agitated on sedation. I have requested neuromuscular paralysis 50 mg rocuronium 1. ABG shows pH 7.25 PCO2 of 56 and PO2 481. Patient will be treated with IV Solu-Medrol and DuoNeb scheduled breathing treatments and empiric Levaquin will be added for COPD exacerbation. Patient has mild troponin elevation no acute EKG changes. This is most likely from severe COPD exacerbation and severe hypoxemia. 3: The patient continues to have ventilator dyssynchrony, sedation increased. Plan for CPAP trials this afternoon. 10/02:The patient continues on Heparin infusion, echo performed awaiting results.CPAP trials attempted this am, unsuccessful. Elevation noted in WBC, possibly secondary to steroids continues on Levaquin, will change to Zosyn to expand coverage with noted pulmonary opacities on CXR. 10/03 no acute issues 10/04 still respiratory acidosis, slightly improving Objective Vital Signs Date Time Temp Pulse Resp B/P Pulse Ox O2 Delivery O2 Flow Rate FiO2 10/04/16 08:14 98 50 10/04/16 06:00 83 10/04/16 04:00 98.3 14 114/75 09/30/16 20:04 Auto-Vent 09/30/16 18:19 10 Intake and Output 10/03/16 10/03/16 10/04/16 08:00 16:00 00:00 Intake Total 860 ml 1524 ml 1566 ml Output Total 450 ml 350 ml 375 ml Balance 410 ml 1174 ml 1191 ml Result Diagram: 10/04/16 0455 10/04/16 0455 Other Results Laboratory Tests Test 10/04/16 04:30 Blood Gas Puncture Site RT RADIAL Blood Gas Patient Temperature 98.6 Blood Gas HCO3 27 mmol/L (22-26) Blood Gas Base Excess 0.3 mmol/L (-2-2) Blood Gas Oxygen Saturation 97 % (90-100) Arterial Blood pH 7.26 (7.380-7.420) Arterial Blood Partial 62 mmHg (38-42) Pressure CO2 Arterial Blood Partial 139 mmHg Pressure O2 (61-120) Arterial Blood Oxygen Content 16.7 Vol % (12.0-20.0) Arterial Blood 0.8 % (0-4) Carboxyhemoglobin Arterial Blood Methemoglobin 0.9 % (0-2) Blood Gas Hemoglobin 12.0 G/DL (12.0-16.0) Oxygen Delivery Device VENTILATOR Blood Gas Ventilator Setting AC 550/14/7 PEEP Blood Gas Inspired Oxygen 40 % Imaging Chest x-ray no acute findings Objective Remarks GENERAL: 70yo F who is intubated sedated with propofol fentanyl, breathing about the vent a synchronous agitated SKIN: Warm and dry. HEAD: Atraumatic. Normocephalic. ENT: Orotracheally intubated NECK: Trachea midline. No JVD. CARDIOVASCULAR: Tachycardic in the 110s. No murmurs RESPIRATORY: Air entry equal bilaterally, severe bilateral expiratory wheezing. GASTROINTESTINAL: Abdomen soft, non-tender, nondistended. Well-healed previous surgical scar MUSCULOSKELETAL: No obvious deformities. No clubbing. No cyanosis. No edema. NEUROLOGICAL: Intubated sedated. Moving all extremities not following commands Date of Insertion: Sep 30, 2016 A/P Assessment and Plan NEURO: - Continue Sedation vacation - off Midazolam infusion - Continue Fentanyl and Propofol infusion - will use Versed boluses PRN for ventilator synchrony RESP: Acute hypoxemic respiratory failure Acute COPD exacerbation Chronic COPD on 2 L home oxygen - Emergently intubated and placed on mechanical ventilation ACV 14/550/7 titrate FiO2 to keep saturation about 90% - Closely monitored avoid entrapping because of significant wheezing - Increased Solu-Medrol 60 mg IV every 6 hours - DuoNeb every 2 hours scheduled now - NO CPAP trials until acidosis resolves CV: Hypotension due to sedation Tachycardia/SIRS Troponin elevation, from severe hypoxemia and COPD exacerbation NSTEMI - Normal saline IV at KVO - Lactic acid is normal, hypotension most likely sedation induced - Mild troponin elevation most likely secondary to severe hypoxemia, stress induced - F/U 2-D echo start aspirin, low-dose Coreg-Continue Heparin - Dr. Glynn , Cardiology input appreciated. Troponins resulted 2.14->3.47 ->2.14 - Hold Benzapril - Continue simvastatin GI: - Continue tube feeds Jevity 1.5 , goal rate 55cc/hr - IV Protonix, Colace for bowel regimen : -Monitor renal function closely. Abreu catheter. ID: - Check sputum culture, blood culture - Empiric Levaquin 750 mg day 2,( dc'd ) , expanded coverage Zosyn q 6hr, for COPD exacerbation HEME: -Monitor CBC, CMP, coags -Continue heparin infusion, CT PE imaging studies negative ENDO: Mild hyperglycemia most likely stress induced - Sliding-scale insulin if needed - Electrolyte replacement per protocol PROPH: Bilateral lower extremity SCDs. Lovenox for DVT prophylaxis. Protonix for GI prophylaxis LINES: -Utilize peripheral IVs, central line if needed Critical Care: The total critical care time was 35 minutes. Time to perform other separately billable procedures was not included in the critical care time. Dhruv Tomas MD Oct 04, 2016 10:28
[2016-10-04] MEDS: MIDAZOLAM HCL 2 MG/2 ML VIAL IV PRN ×3 (12:06→20:14)
[2016-10-04 12:07] LABS: BLOOD GAS BASE EXCESS 1.3 mmol/L (-2-2); BLOOD GAS HCO3 27 mmol/L (22-26); BLOOD GAS METHEMOGLOBIN 1.2 % (0-2); BLOOD GAS O2 HGB SATURATION 95 % (90-100); BLOOD GAS OXYGEN CONTENT 17.1 Vol % (12.0-20.0); BLOOD GAS PCO2 55 mmHg (38-42); BLOOD GAS PO2 101 mmHg (61-120); BLOOD GAS TOTAL HGB 12.7 G/DL (12.0-16.0); TEMP CORR TO 98.6
[2016-10-04 12:08] LABS: CRITICAL VALUE YES; OXYGEN DEVICE VENTILATOR
[2016-10-04 12:09] LABS: DRAW SITE RT RADIAL; FIO2 40 %; NUMBER OF ARTERIAL PUNCTURES 1; STAT NO; ULNAR PULSE PRESENT
[2016-10-04] MEDS: ACETAMINOPHEN 325 MG TAB PO PRN (16:59)
[2016-10-05] VITALS (19 sets, daily range): BP systolic 93–135; BP diastolic 58–73; PULSE 72–125; RESP 20; TEMP 98.2–100.1; O2SAT 92–99
[2016-10-05] MEDS: methylPREDNISolone SOD SUCC 125 MG/2 ML VIAL IV PUSH SCH ×5 (00:14→22:44)
[2016-10-05] MEDS: fentaNYL DRIP 250 ML IV SCH ×4 (00:48→19:27)
[2016-10-05] MEDS: MIDAZOLAM HCL 2 MG/2 ML VIAL IV PRN ×9 (01:35→22:28)
[2016-10-05] MEDS: RESP: ALBUTEROL 2.5 MG/IPRATROPIUM 0.5 MG NEB (SCH) NEB ×12 (01:37→23:54)
[2016-10-05] MEDS: PROPOFOL 1000 MG/100 ML INJ 100 ML IV SCH ×7 (03:00→22:44)
[2016-10-05] MEDS: CHLORHEXIDINE GLUCONATE 2 % 1 PACK (2 CLOTHS) TOP SCH ×2 (04:00→23:46)
[2016-10-05 04:37] LABS: AUTOMATED NEUTROPHIL # 6.5 TH/MM3 (1.8-7.7); BASOPHIL % 0.1 % (0.0-2.0); HEMATOCRIT 38.2 % (35.0-46.0); LYMPH % 5.4 % (9.0-44.0); LYMPHOCYTE # 0.4 TH/MM3 (1.0-4.8); MEAN CELL VOLUME 88.6 FL (80.0-100.0); MEAN CORPUSCULAR HGB CONC 32.7 % (32.0-36.0); MONO % 6.8 % (0.0-8.0); NEUT % 87.7 % (16.0-70.0); PLATELET COUNT 134 TH/MM3 (150-450); RED BLOOD COUNT 4.31 MIL/MM3 (4.00-5.30); RED CELL DISTRIBUTION WIDTH 16.6 % (11.6-17.2); WHITE BLOOD COUNT 7.4 TH/MM3 (4.0-11.0)
[2016-10-05 04:49] LABS: ANION GAP 7 MEQ/L (5-15); AST (GOT) 85 U/L (15-37); BICARBONATE 31.5 MEQ/L (21.0-32.0); BLOOD UREA NITROGEN 35 MG/DL (7-18); CHLORIDE 112 MEQ/L (98-107); GLOMERULAR FILTRATION RATE 87 ML/MIN (>89); MAGNESIUM 2.9 MG/DL (1.5-2.5); POTASSIUM 5.1 MEQ/L (3.5-5.1); SODIUM (NA) 150 MEQ/L (136-145)
[2016-10-05 04:53] LABS: ALKALINE PHOSPHATASE 132 U/L (45-117); ALT (GPT) 179 U/L (10-53); TOTAL BILIRUBIN ADULT 0.5 MG/DL (0.2-1.0)
[2016-10-05 04:56] LABS: HEMO FLAGS AUTO DIFF
[2016-10-05 05:08] LABS: BLOOD GAS BASE EXCESS 4.6 mmol/L (-2-2); BLOOD GAS CARBOXYHEMOGLOBIN 0.9 % (0-4); BLOOD GAS HCO3 29 mmol/L (22-26); BLOOD GAS METHEMOGLOBIN 1.4 % (0-2); BLOOD GAS O2 HGB SATURATION 95 % (90-100); BLOOD GAS OXYGEN CONTENT 20.6 Vol % (12.0-20.0); BLOOD GAS PCO2 45 mmHg (38-42); BLOOD GAS PO2 86 mmHg (61-120); BLOOD GAS TOTAL HGB 15.4 G/DL (12.0-16.0); CRITICAL VALUE NO; DRAW SITE RT RADIAL; FIO2 50 %; NUMBER OF ARTERIAL PUNCTURES 1; OXYGEN DEVICE VENTILATOR; STAT NO; TEMP CORR TO 98.6; ULNAR PULSE PRESENT; VENT SETTINGS AC20/550/7PEEP
--- NOTE | 2016-10-05 05:24 | RADRPT ---
EXAM DATE/TIME: 10/05/2016 04:33 [facility] COMPARISON: CHEST SINGLE AP, October 04, 2016, 4:51. INDICATIONS : Follow up. MEDICAL HISTORY : Chronic obstructive pulmonary disease. SURGICAL HISTORY : None. ENCOUNTER: Subsequent ACUITY: 1 week PAIN SCORE: Non-responsive. LOCATION: Bilateral chest FINDINGS: A single view of the chest demonstrates mild bibasilar atelectatic changes, right greater than left. Otherwise, no confluent infiltrate. Lungs remain hyperinflated. Heart size is normal. Life support tu bes are stable in position. CONCLUSION: 1. Hyperinflation with bibasilar atelectatic changes, right greater than left. 2. Stable position of life support tubes. Pedrito Tavera MD on October 05, 2016 at 5:20 Board Certified Radiologist. This report was verified electronically.
[2016-10-05] MEDS: PIPERACIL-TAZO 3.375 GM PREMIX 50 ML IV SCH ×4 (05:27→19:27)
--- NOTE | 2016-10-05 07:15 | PD.CARD.PN ---
Subjective Subjective Remarks Not responsive on vent Objective Medications Current Medications Medications (Trade) Dose Ordered Sig/[place] Route Start Time Stop Time Status Last Admin (fentaNYL DRIP) 250 ml @ 0 mls/hr TITRATE IV 09/30/16 19:00 10/05/16 00:48 (NS Flush) 2 ml UNSCH PRN IVF 09/30/16 19:15 (NS Flush) 2 ml BID IVF 09/30/16 21:00 10/04/16 20:15 (Tylenol) 650 mg Q6H PRN PO 09/30/16 19:15 10/04/16 16:59 (fentaNYL INJ) 50 mcg Q1H PRN IV 09/30/16 19:15 (Peridex 0.12% Liq) 15 ml BID@08,20 MT 09/30/16 20:00 10/04/16 20:15 (Protonix Inj) 40 mg DAILY IV 10/01/16 09:00 10/04/16 08:06 Miscellaneous Information 1 Q361D XX 09/30/16 19:15 09/30/16 19:15 (Chlorhexidine 2% Cloth) 3 pack Taper DAILY@04 TOP 10/01/16 04:00 09/27/17 03:59 10/05/16 04:00 Chlorhexidine Gluconate 3 pack 3 pack UNSCH PRN TOP 09/30/16 19:15 (Diprivan 1000 Mg/100ml Inj) 100 ml @ 0 mls/hr TITRATE IV 09/30/16 19:15 10/05/16 05:27 Methylprednisolone Sodium Succinate 60 mg 60 mg Q6HR IV PUSH 10/01/16 00:00 10/05/16 05:27 Potassium Chloride 100 ml @ 50 mls/hr Q2H PRN IV 09/30/16 19:15 (KCl 20 Meq Premix Inj) 100 ml @ 50 mls/hr Q2H PRN IV 09/30/16 19:15 Potassium Chloride 40 meq 40 meq UNSCH PRN PO/TUBE 09/30/16 19:15 Potassium Chloride 100 ml @ 25 mls/hr UNSCH PRN IV 09/30/16 19:15 Potassium Chloride 100 ml @ 50 mls/hr Q2H PRN IV 09/30/16 19:15 (Magnesium Sulfate Inj/NS Inj) 100 ml @ 50 mls/hr UNSCH PRN IV 09/30/16 19:15 Magnesium Oxide 800 mg 800 mg UNSCH PRN PO 09/30/16 19:15 (Magnesium Sulfate Inj/NS Inj) 100 ml @ 50 mls/hr UNSCH PRN IV 09/30/16 19:15 Potassium Phosphate 2000 mg 2,000 mg Q4H PRN PO 09/30/16 19:15 (Sodium Phosphate Inj/NS 250 ml Inj) 250 ml @ 42 mls/hr UNSCH PRN IV 09/30/16 19:15 10/04/16 00:41 (KCl 40 Meq/30 ml Liq) 40 meq UNSCH PRN PO/TUBE 09/30/16 19:15 Potassium Phosphate 2000 mg 2,000 mg UNSCH PRN PO/TUBE 09/30/16 19:15 (Potassium Phosphate Inj/NS 250 ml Inj) 260 ml @ 42 mls/hr UNSCH PRN IV 09/30/16 19:15 (Symbicort 160-4.5 Inh) 2 puff Q12HR INH 09/30/16 21:00 10/04/16 19:50 (Aspirin Chew) 81 mg DAILY TUBE 09/30/16 20:30 10/04/16 08:06 (Coreg) 3.125 mg Q12HR PO 09/30/16 21:00 10/04/16 20:14 (Pravachol) 40 mg DAILY PO 10/01/16 09:00 10/04/16 08:06 Protein 1 pack 1 pack TID G-TUBE 10/02/16 13:00 10/04/16 17:00 (Zosyn 3.375 Gm Premix) 50 ml @ 100 mls/hr Q6H IV 10/02/16 11:00 10/05/16 05:27 (Versed Inj) 2 mg Q2H PRN IV 10/04/16 09:30 10/05/16 05:27 Vital Signs / I&O Vital Signs Date Time Temp Pulse Resp B/P Pulse Ox O2 Delivery O2 Flow Rate FiO2 10/05/16 06:00 99 10/05/16 04:26 99 50 10/05/16 04:00 91 10/05/16 04:00 50 10/05/16 04:00 100.1 118 20 119/72 99 10/05/16 02:00 79 10/05/16 01:35 98 50 10/05/16 00:00 73 10/05/16 00:00 50 10/05/16 00:00 100.0 73 20 93/58 93 10/04/16 22:03 98 50 10/04/16 22:00 75 10/04/16 20:00 50 10/04/16 20:00 100.7 123 20 178/84 99 10/04/16 20:00 123 10/04/16 19:45 97 50 10/04/16 18:00 76 10/04/16 16:07 97 50 10/04/16 16:00 120 10/04/16 16:00 45 10/04/16 16:00 100.7 81 20 181/96 95 10/04/16 14:00 95 10/04/16 12:00 45 10/04/16 12:00 86 10/04/16 12:00 97.9 85 14 175/106 97 10/04/16 11:09 98 50 10/04/16 10:00 78 10/04/16 08:14 98 50 10/04/16 08:00 79 10/04/16 08:00 98.0 75 14 102/58 98 10/04/16 08:00 45 10/04/16 07:45 45 I/O 10/04/16 10/04/16 10/04/16 10/05/16 10/05/16 10/05/16 07:00 15:00 23:00 07:00 15:00 23:00 Intake Total 1440 ml 1542 ml 1157 ml 928 ml Output Total 350 ml 400 ml 375 ml 403 ml Balance 1090 ml 1142 ml 782 ml 525 ml Intake Oral 0 ml 0 ml IV Total 1097 ml 1027 ml 676 ml 546 ml Tube Feeding 343 ml 415 ml 381 ml 382 ml Other 100 ml 100 ml 0 ml Output Urine Total 350 ml 400 ml 375 ml 400 ml Stool Total 0 ml 3 ml Physical Exam GENERAL: Well developed, well nourished. No acute distress, on vent HEENT: Jugular venous pressure is normal. CHEST: Lungs clear to auscultation bilaterally. Unlabored respiratory effort. CARDIAC: Regular rate and rhythm without S3, S4, or murmur. ABDOMEN: Soft, nontender, no hepatosplenomegaly. Bowel sounds present. EXTREMITIES: No clubbing, cyanosis, or edema. Laboratory Laboratory Tests Test 10/04/16 10/05/16 10/05/16 11:53 03:30 05:00 Blood Gas Puncture Site RT RADIAL RT RADIAL Blood Gas Patient Temperature 98.6 98.6 Blood Gas HCO3 27 mmol/L 29 mmol/L Blood Gas Base Excess 1.3 mmol/L 4.6 mmol/L Blood Gas Oxygen Saturation 95 % 95 % Arterial Blood pH 7.31 7.42 Arterial Blood Partial 55 mmHg 45 mmHg Pressure CO2 Arterial Blood Partial 101 mmHg 86 mmHg Pressure O2 Arterial Blood Oxygen Content 17.1 Vol % 20.6 Vol % Arterial Blood 1.0 % 0.9 % Carboxyhemoglobin Arterial Blood Methemoglobin 1.2 % 1.4 % Blood Gas Hemoglobin 12.7 G/DL 15.4 G/DL Oxygen Delivery Device VENTILATOR VENTILATOR Blood Gas Ventilator Setting AC14,550, AC20/550/7PEEP 7PEEP Blood Gas Inspired Oxygen 40 % 50 % White Blood Count 7.4 TH/MM3 Red Blood Count 4.31 MIL/MM3 Hemoglobin 12.5 GM/DL Hematocrit 38.2 % Mean Corpuscular Volume 88.6 FL Mean Corpuscular Hemoglobin 29.0 PG Mean Corpuscular Hemoglobin 32.7 % Concent Red Cell Distribution Width 16.6 % Platelet Count 134 TH/MM3 Mean Platelet Volume 10.3 FL Neutrophils (%) (Auto) 87.7 % Lymphocytes (%) (Auto) 5.4 % Monocytes (%) (Auto) 6.8 % Eosinophils (%) (Auto) 0.0 % Basophils (%) (Auto) 0.1 % Neutrophils # (Auto) 6.5 TH/MM3 Lymphocytes # (Auto) 0.4 TH/MM3 Monocytes # (Auto) 0.5 TH/MM3 Eosinophils # (Auto) 0.0 TH/MM3 Basophils # (Auto) 0.0 TH/MM3 CBC Comment AUTO DIFF Sodium Level 150 MEQ/L Potassium Level 5.1 MEQ/L Chloride Level 112 MEQ/L Carbon Dioxide Level 31.5 MEQ/L Anion Gap 7 MEQ/L Blood Urea Nitrogen 35 MG/DL Creatinine 0.67 MG/DL Estimat Glomerular Filtration 87 ML/MIN Rate Random Glucose 192 MG/DL Calcium Level 8.1 MG/DL Phosphorus Level 3.0 MG/DL Magnesium Level 2.9 MG/DL Total Bilirubin 0.5 MG/DL Aspartate Amino Transf 85 U/L (AST/SGOT) Alanine Aminotransferase 179 U/L (ALT/SGPT) Alkaline Phosphatase 132 U/L Total Protein 5.9 GM/DL Albumin 2.5 GM/DL Assessment and Plan Assessment and Plan 1. Non-ST elevation myocardial infarction - likely secondary to hypoxia - wants conservative measures until respiratory status is clarified - 10/05 no change, on aspirin and BB, 2. Cardiomyopathy-EF 40-45% global HK - aspirin and BB, BP remains too low for EDDIE 3. COPD - respiratory failure - this is being managed by the quiller runner. 4. Hepatic failure- statin contraindicated 5. DNR Available Mamta Fuentes MD Oct 05, 2016 07:15
[2016-10-05] MEDS: BUDESONIDE-FORMOTEROL 160/4.5 MCG INHALER INH SCH ×3 (08:16→19:53)
[2016-10-05 08:36] LABS: SCAN/DIFF AUTO DIFF CONFIRMED
[2016-10-05 08:37] LABS: PLATELET ESTIMATE SMEAR LOW (NORMAL); PLATELET MORPHOLOGY NORMAL (NORMAL)
[2016-10-05] MEDS: CHLORHEXIDINE 0.12% (ORAL KIT) 15 ML CUP MT SCH ×2 (09:07→19:26)
[2016-10-05] MEDS: ASPIRIN 81 MG CHEW TAB TUBE SCH (09:08)
[2016-10-05] MEDS: PRAVASTATIN SOD 40 MG TAB PO SCH (09:08)
[2016-10-05] MEDS: PANTOPRAZOLE SODIUM 40 MG VIAL IV SCH (09:08)
[2016-10-05] MEDS: CARVEDILOL 3.125 MG TAB PO SCH ×2 (09:08→19:28)
[2016-10-05] MEDS: SODIUM CHLORIDE 0.9% FLUSH 5 ML FLUSH IVF SCH ×2 (09:09→19:28)
[2016-10-05] MEDS: BENEPROTEIN POWDER 1 PACK G-TUBE SCH ×3 (09:11→17:57)
[2016-10-05] MEDS ORDERED: GLUCAGON 1 MG/ML VIAL OTHER PRN (09:15)
[2016-10-05] MEDS ORDERED: DEXTROSE 50% IN WATER 50 ML VIAL(D50) IV PUSH PRN (09:15)
[2016-10-05] MEDS: INSULIN ASPART SUPPLEMENTAL SCALE SQ SCH ×3 (11:38→20:06)
--- NOTE | 2016-10-05 11:52 | HHI.CCPN ---
Subjective Remarks/Hospital Course Patient is a 78-year-old white female with past medical history significant for COPD on 2L home O2, HTN, anxiety who was brought in [place] ER by [facility] for respiratory distress. Apparently patient had been increasingly short of breath for 1 day and used her nebulizer treatments without relief. Patient's oxygen saturation was 69% on 2 LNC on [facility] arrival and was given duonebsx3 and methylprednisolone 125mg IV. In the emergency department patient was very tachypneic hypoxic and was immediately placed on BIPAP. Patient remained tachypneic in respiratory distress on BiPAP and was intubated and placed on mechanical ventilation I evaluated the patient in the ED. Patient is asynchronous and tachypneic on the ventilator, agitated on sedation. I have requested neuromuscular paralysis 50 mg rocuronium 1. ABG shows pH 7.25 PCO2 of 56 and PO2 481. Patient will be treated with IV Solu-Medrol and DuoNeb scheduled breathing treatments and empiric Levaquin will be added for COPD exacerbation. Patient has mild troponin elevation no acute EKG changes. This is most likely from severe COPD exacerbation and severe hypoxemia. 3/4: The patient continues to have ventilator dyssynchrony, sedation increased. Plan for CPAP trials this afternoon. 10/02:The patient continues on Heparin infusion, echo performed awaiting results.CPAP trials attempted this am, unsuccessful. Elevation noted in WBC, possibly secondary to steroids continues on Levaquin, will change to Zosyn to expand coverage with noted pulmonary opacities on CXR. 10/03 no acute issues 10/04 still respiratory acidosis, slightly improving 10/05 severe respiratory distress while off sedation, bronchospasm, hypoxemia Objective Vital Signs Date Time Temp Pulse Resp B/P Pulse Ox O2 Delivery O2 Flow Rate FiO2 10/05/16 08:16 96 50 10/05/16 06:00 99 10/05/16 04:00 100.1 20 119/72 Intake and Output 10/04/16 10/04/16 10/05/16 08:00 16:00 00:00 Intake Total 1440 ml 1542 ml 1157 ml Output Total 350 ml 400 ml 375 ml Balance 1090 ml 1142 ml 782 ml Result Diagram: 10/05/16 0330 10/05/16 0330 Other Results Laboratory Tests Test 10/04/16 10/05/16 11:53 05:00 Blood Gas Puncture Site RT RADIAL RT RADIAL Blood Gas Patient Temperature 98.6 98.6 Blood Gas HCO3 27 mmol/L 29 mmol/L (22-26) (22-26) Blood Gas Base Excess 1.3 mmol/L 4.6 mmol/L (-2-2) (-2-2) Blood Gas Oxygen Saturation 95 % (90-100) 95 % (90-100) Arterial Blood pH 7.31 7.42 (7.380-7.420) (7.380-7.420) Arterial Blood Partial 55 mmHg (38-42) 45 mmHg (38-42) Pressure CO2 Arterial Blood Partial 101 mmHg 86 mmHg Pressure O2 (61-120) (61-120) Arterial Blood Oxygen Content 17.1 Vol % 20.6 Vol % (12.0-20.0) (12.0-20.0) Arterial Blood 1.0 % (0-4) 0.9 % (0-4) Carboxyhemoglobin Arterial Blood Methemoglobin 1.2 % (0-2) 1.4 % (0-2) Blood Gas Hemoglobin 12.7 G/DL 15.4 G/DL (12.0-16.0) (12.0-16.0) Oxygen Delivery Device VENTILATOR VENTILATOR Blood Gas Ventilator Setting AC14,550, AC20/550/7PEEP 7PEEP Blood Gas Inspired Oxygen 40 % 50 % Imaging Chest x-ray no acute findings Objective Remarks GENERAL: 70yo F who is intubated sedated with propofol fentanyl, breathing about the vent a synchronous agitated SKIN: Warm and dry. HEAD: Atraumatic. Normocephalic. ENT: Orotracheally intubated NECK: Trachea midline. No JVD. CARDIOVASCULAR: Tachycardic in the 110s. No murmurs RESPIRATORY: Air entry equal bilaterally, severe bilateral expiratory wheezing. GASTROINTESTINAL: Abdomen soft, non-tender, nondistended. Well-healed previous surgical scar MUSCULOSKELETAL: No obvious deformities. No clubbing. No cyanosis. No edema. NEUROLOGICAL: Intubated sedated. Moving all extremities not following commands Date of Insertion: Sep 30, 2016 A/P Assessment and Plan NEURO: - Continue Sedation vacation as respiratory allows - off Midazolam infusion - Continue Fentanyl and Propofol infusion - will use Versed boluses PRN for ventilator synchrony RESP: Acute hypoxemic respiratory failure Acute COPD exacerbation Chronic COPD on 2 L home oxygen - Emergently intubated and placed on mechanical ventilation ACV 14/550/7 titrate FiO2 to keep saturation about 90% - Closely monitored avoid entrapping because of significant wheezing - Increased Solu-Medrol 60 mg IV every 6 hours - DuoNeb every 2 hours scheduled now - CPAP trials - acidosis resolved CV: Hypotension due to sedation Tachycardia/SIRS Troponin elevation, from severe hypoxemia and COPD exacerbation NSTEMI - Normal saline IV at KVO - Lactic acid is normal, hypotension most likely sedation induced - Mild troponin elevation most likely secondary to severe hypoxemia, stress induced - F/U 2-D echo start aspirin, low-dose Coreg-Continue Heparin - Dr. Glynn , Cardiology input appreciated. Troponins resulted 2.14->3.47 ->2.14 - Restart Benzapril - watch for hyperkalemia - Hold simvastatin due to elevated LFTs GI: - Continue tube feeds Jevity 1.5 , goal rate 55cc/hr - IV Protonix, Colace for bowel regimen : -Monitor renal function closely. Abreu catheter. ID: - Check sputum culture, blood culture - Empiric Levaquin 750 mg day 2,( dc'd ) , expanded coverage Zosyn q 6hr, for COPD exacerbation HEME: -Monitor CBC, CMP, coags -Continue heparin infusion, CT PE imaging studies negative ENDO: Mild hyperglycemia most likely stress induced - Sliding-scale insulin - Electrolyte replacement per protocol PROPH: Bilateral lower extremity SCDs. Lovenox for DVT prophylaxis. Protonix for GI prophylaxis LINES: -Utilize peripheral IVs, central line if needed Critical Care: The total critical care time was 35 minutes. Time to perform other separately billable procedures was not included in the critical care time. Dhruv Tomas MD Oct 05, 2016 11:52
--- NOTE | 2016-10-05 14:00 | PD.CONS ---
Consult Service Palliative Care Consult Requested By Dr. Genoveva MD. Primary Care Physician Alejandro Urban MD Reason for Consultation a. To assist with evaluation and management of symptoms including: Debility and shortness of breath. b. To assist medical decision maker(s) with: better understanding of current medical conditions; weighing benefits/burdens of medical treatment options; making medical treatment decisions. . HPI History of Present Illness Mrs. Sandoval is a 70-year-old female with a medical history of COPD, anxiety and hypertension who presented to ED on 09/30/16 via EMS secondary to respiratory distress. According to patient's spouse, patient has been oxygen dependent at home for the past year secondary to worsening COPD. On the day prior to presented to ED, has been reporting progressive shortness of breath relieved by nebulizer treatments. Upon EMS arrival, patient's oxygen saturation was found in the 60s while on 2 L nasal cannula. Patient was given duo nebs 3 and steroid injection and once transferred to emergency room for additional management. Upon arrival to ED, patient was tachypnea and was placed on BiPAP. She remained tachypnea and respiratory distress and was subsequently intubated for acute respiratory failure. Patient was transferred to ICU for further management. Chest x-ray on 09/30/16 showing no acute evidence of significant congestion. ED workup included laboratory WBC 6.6, Hgb 14.6, platelet count 135. Sodium 138, potassium 4.6, BUN/creatinine 15/0.74. Patient was placed on antibiotics. Troponin 2.19, 3.47, and 2.14. Cardiology -Dr. Glynn consulted on 10/01/16 secondary to elevated troponin, non-STEMI elevation myocardial infarction likely secondary to hypoxemia. Patient reports candidate for revascularization. Medical management recommended. Echocardiogram 10/01/16 showing EF of 40-45%. CTA of chest 10/01/16 negative for PE. Blood culture 09/30/16 growing gram-positive cocci. Clinical course has been complicated by patient's by asynchrony and tachypnea on ventilator requiring increased sedation and respiratory acidosis. CPAP trials started on 10/01/16 but unsuccessful secondary to tachypnea/severe respiratory distress while on sedation. Palliative care has been consulted for assistance with clarifications of goals of care given patient's critical condition. Patient seen in ICU, she remains intubated and mechanical ventilated on fentanyl and propofol. Currently 50% FiO2, sating in the mid 90s. at bedside. Max temperature 100.7, stable blood pressure. Chest x-ray today showing hyperinflation with bibasilar atelectatic changes, right greater than left. Laboratory today WBC 7.4, Hgb 12.5, platelet count 134. Sodium 150, potassium 5.1, BUN/creatinine 35/0.67. Elevated LFTs, AST 85, ALT 179, alkaline phosphatase 132. Albumin 2.5. Arterial blood gas showing PCO2 45 from 55 yesterday. Respiratory acidosis resolving. Patient's Oni at bedside. In this first visit, introduced the role of palliative care in advanced illness in regards to symptom management as well as support surrounding goals of care and advance care planning. Has been receptive to my visit. tells me that patient was originally diagnosed with COPD a few years ago but did not require home oxygen until the past year. Patient is a smoker, 1 pack a day for the past 60 years. Patient residing with prior to this hospitalization. She was fully independent with activities of daily living. Requiring assistance with grocery shopping as she does not drive. Patient and have been for the past 56 years, they have 5 children. 3 children are in [place], 1 child in [place] and one child locally in [place]. Reviewed patient's general health and functional status in the months leading up to this current hospitalization. One emergency room visit in August, secondary to COPD exacerbation. 1 overnight hospitalization in June 2015 secondary to COPD exacerbation. Reviewed clinical course and current medical plan. with a good understanding of patient's current clinical state. Shared concerns regarding patient's ability to extubate given her progressive COPD. Reviewed tracheostomy and PEG tube as a medical option. Patient's tells me that patient's quality of life is very important to him and that she wouldn't wanted any life-prolonging measures such as tracheostomy and PEG tube. tells me that family is ready to transition patient to comfort directed care given her poor prognosis for a meaningful recovery. Spouse reports that over 5 children have been involved in this decision and that they are expecting to arrive within the next 48 hours. Likely to withdrawal life support/transition to comfort directed care early next week. Reviewed with that patient's clinical condition remains critical and that she may prior to this. verbalized understanding. . Function/Cognitive Trajectory Patient residing with prior to this hospitalization. She was fully independent with activities of daily living. Requiring assistance with grocery shopping as she does not drive. No cognitive decline reported. O2 at home secondary to COPD. . Review of Systems ROS Limitations: Clinical Condition, Intubated Constitutional: DENIES: Fatigue, Dizziness, Change in appetite Endocrine: DENIES: Heat/cold intolerance Eyes: DENIES: Blurred vision Ears, nose, mouth, throat: DENIES: Hearing loss Respiratory: COMPLAINS OF: Apneas, Cough, Sputum production, Shortness of breath Cardiovascular: COMPLAINS OF: Dyspnea on Exertion, DENIES: Chest pain, Lower Extremity Edema Gastrointestinal: DENIES: Abdominal pain, Diarrhea, Nausea, Vomiting Genitourinary: COMPLAINS OF: Urinary frequency Musculoskeletal: DENIES: Joint pain, Decreased range of motion Integumentary: DENIES: Abnormal pigmentation Hematologic/Lymphatics: COMPLAINS OF: Bruising Immunologic/Allergic: DENIES: Eczema Neurologic: DENIES: Abnormal gait Psychiatric: DENIES: Anxiety, Depression Other ROS: Limited ROS secondary to clinical condition, patient sedated, intubated on mechanical ventilation. ROS obtained from medical records, patient's and clinical observation. Past Family Social History Coded Allergies: Contrast Media (Verified Allergy, Severe, Itching, 09/30/16) 1-2 ITCHY SPOTS Past Medical History COPD, O2 dependent at home. Hypertension Hyperlipidemia Anxiety GERD History uterine cancer . Past Surgical History Appendectomy Cholecystectomy Hysterectomy . Reported Medications Benazepril 10 mg by mouth daily Venlafaxine ER 150 mg by mouth daily Seroquel 100 mg by mouth daily Alprazolam 0.25 mg every 8 hours when necessary anxiety Duonebs every 6 hours Simvastatin 20 mg by mouth daily . Current Medications Medications (Trade) Dose Ordered Sig/[place] Route Start Time Stop Time Status Last Admin (fentaNYL DRIP) 250 ml @ 0 mls/hr TITRATE IV 09/30/16 19:00 10/05/16 09:08 (NS Flush) 2 ml UNSCH PRN IVF 09/30/16 19:15 (NS Flush) 2 ml BID IVF 09/30/16 21:00 10/05/16 09:09 (Tylenol) 650 mg Q6H PRN PO 09/30/16 19:15 10/04/16 16:59 (fentaNYL INJ) 50 mcg Q1H PRN IV 09/30/16 19:15 (Peridex 0.12% Liq) 15 ml BID@08,20 MT 09/30/16 20:00 10/05/16 09:07 (Protonix Inj) 40 mg DAILY IV 10/01/16 09:00 10/05/16 09:08 Miscellaneous Information 1 Q361D XX 09/30/16 19:15 09/30/16 19:15 (Chlorhexidine 2% Cloth) 3 pack Taper DAILY@04 TOP 10/01/16 04:00 09/27/17 03:59 10/05/16 04:00 Chlorhexidine Gluconate 3 pack 3 pack UNSCH PRN TOP 09/30/16 19:15 (Diprivan 1000 Mg/100ml Inj) 100 ml @ 0 mls/hr TITRATE IV 09/30/16 19:15 10/05/16 13:00 Methylprednisolone Sodium Succinate 60 mg 60 mg Q6HR IV PUSH 10/01/16 00:00 10/05/16 11:20 Potassium Chloride 100 ml @ 50 mls/hr Q2H PRN IV 09/30/16 19:15 (KCl 20 Meq Premix Inj) 100 ml @ 50 mls/hr Q2H PRN IV 09/30/16 19:15 Potassium Chloride 40 meq 40 meq UNSCH PRN PO/TUBE 09/30/16 19:15 Potassium Chloride 100 ml @ 25 mls/hr UNSCH PRN IV 09/30/16 19:15 Potassium Chloride 100 ml @ 50 mls/hr Q2H PRN IV 09/30/16 19:15 (Magnesium Sulfate Inj/NS Inj) 100 ml @ 50 mls/hr UNSCH PRN IV 09/30/16 19:15 Magnesium Oxide 800 mg 800 mg UNSCH PRN PO 09/30/16 19:15 (Magnesium Sulfate Inj/NS Inj) 100 ml @ 50 mls/hr UNSCH PRN IV 09/30/16 19:15 Potassium Phosphate 2000 mg 2,000 mg Q4H PRN PO 09/30/16 19:15 (Sodium Phosphate Inj/NS 250 ml Inj) 250 ml @ 42 mls/hr UNSCH PRN IV 09/30/16 19:15 10/04/16 00:41 (KCl 40 Meq/30 ml Liq) 40 meq UNSCH PRN PO/TUBE 09/30/16 19:15 Potassium Phosphate 2000 mg 2,000 mg UNSCH PRN PO/TUBE 09/30/16 19:15 (Potassium Phosphate Inj/NS 250 ml Inj) 260 ml @ 42 mls/hr UNSCH PRN IV 09/30/16 19:15 (Symbicort 160-4.5 Inh) 2 puff Q12HR INH 09/30/16 21:00 10/05/16 08:16 (Aspirin Chew) 81 mg DAILY TUBE 09/30/16 20:30 10/05/16 09:08 (Coreg) 3.125 mg Q12HR PO 09/30/16 21:00 10/05/16 09:08 (Pravachol) 40 mg DAILY PO 10/01/16 09:00 10/05/16 09:08 Protein 1 pack 1 pack TID G-TUBE 10/02/16 13:00 10/05/16 09:11 (Zosyn 3.375 Gm Premix) 50 ml @ 100 mls/hr Q6H IV 10/02/16 11:00 10/05/16 11:21 (Versed Inj) 2 mg Q2H PRN IV 10/04/16 09:30 10/05/16 11:20 (D50w (Vial) Inj) 25 ml UNSCH PRN IV PUSH 10/05/16 09:15 (Glucagon Inj) 1 mg UNSCH PRN OTHER 10/05/16 09:15 (Vasotec) 2.5 mg BID PO 10/05/16 21:00 Family History Father - of acute AL Mother - of old age Patient has 5 children, all alive and well. . Substance Use Tobacco: One pack per day for the past 60 years. Alcohol: None reported. Prescription med abuse: None reported. Illicits: None reported. . Psychosocial History Patient residing with prior to this hospitalization. for the past 56 years. They have 5 children together, 3 in [place], 1 in [place] and one in [place]. 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 Active member of her mandaen. . Spiritual/Cultural Factors Christian. Active member of her mandaen. . Living Will: Completed, but not made available Health Care Surrogate: Never completed Durable Power of Renewable Energy Engineer: Never completed Date completed: Has been unable to locate at home. Health Care Surrogate(s): As per [place] statute, healthcare proxy decision-making falls to patient's . . Documented care wishes: Living well not available at this time. unable to locate at home. . Family/friends goals: No code -DNR. Family electing to transition patient to comfort directed care/ withdrawal life support and to allow a natural given her worsening clinical condition and poor prognosis. Pending family members to arrive within the next 48 hours. . Ethical and Legal Issues No ethical legal issues have been identified. . Physical Exam Vital Signs Date Time Temp Pulse Resp B/P Pulse Ox O2 Delivery O2 Flow Rate FiO2 10/05/16 12:10 94 50 10/05/16 08:16 96 50 10/05/16 06:00 99 10/05/16 04:26 99 50 10/05/16 04:00 91 10/05/16 04:00 50 10/05/16 04:00 100.1 118 20 119/72 99 10/05/16 02:00 79 10/05/16 01:35 98 50 10/05/16 00:00 73 10/05/16 00:00 50 10/05/16 00:00 100.0 73 20 93/58 93 10/04/16 22:03 98 50 10/04/16 22:00 75 10/04/16 20:00 50 10/04/16 20:00 100.7 123 20 178/84 99 10/04/16 20:00 123 10/04/16 19:45 97 50 10/04/16 18:00 76 10/04/16 16:07 97 50 10/04/16 16:00 120 10/04/16 16:00 45 10/04/16 16:00 100.7 81 20 181/96 95 10/04/16 14:00 95 10/04/16 10/05/16 19:00 07:00 Intake Total 1542 ml 2085 ml Output Total 400 ml 778 ml Balance 1142 ml 1307 ml Intake Oral 0 ml IV Total 1027 ml 1222 ml Tube Feeding 415 ml 763 ml Other 100 ml 100 ml Output Urine Total 400 ml 775 ml Stool Total 3 ml Exam CONSTITUTIONAL/GENERAL: This is an elderly female in no acute distress. Sedated , intubated on mechanical ventilation. TUBES/LINES/DRAINS: Right IJ central line, ET tube, OG tube, Abreu catheter, SCDs. SKIN: No jaundice, rashes, or lesions. Scatter ecchymoses on upper extremities. No wounds seen anteriorly. HEAD: Atraumatic. Normocephalic. EYES: Pupils equal and round and reactive. No injection or drainage. Fundi not examined. ENT: Unable to evaluate hearing secondary to clinical condition. Nose without bleeding or purulent drainage. Unable to assess throat or oral cavity secondary to ET tube. NECK: Trachea midline. Supple. CARDIOVASCULAR: Regular rate and rhythm. Peripheral pulses symmetric. Bilaterally edema to upper extremities. RESPIRATORY/CHEST: Symmetric. Coarse to auscultation. Breath sounds equal bilaterally. Mild expiratory wheezes bilateral. Intubated on mechanical ventilation. GASTROINTESTINAL: Abdomen soft,nondistended. Bowel sounds present. Ongoing tube feeding. GENITOURINARY: Without palpable bladder distension. Abreu catheter in place. MUSCULOSKELETAL: Extremities without clubbing, cyanosis. Mild cyanosis to bilateral hands/fingers. NEUROLOGICAL: Sedated. Unresponsive to tactile or verbal stimuli. Not following any commands. PSYCHIATRIC: Unable to assess secondary to clinical condition. Appears calm. . Diagnostic Tests Laboratory Laboratory Tests Test 10/03/16 10/03/16 10/04/16 10/04/16 04:40 22:55 04:30 04:55 White Blood Count 11.9 TH/MM3 8.5 TH/MM3 (4.0-11.0) (4.0-11.0) Red Blood Count 4.53 MIL/MM3 4.25 MIL/MM3 (4.00-5.30) (4.00-5.30) Hemoglobin 13.1 GM/DL 12.4 GM/DL (11.6-15.3) (11.6-15.3) Hematocrit 40.3 % 37.9 % (35.0-46.0) (35.0-46.0) Mean Corpuscular Volume 89.0 FL 89.2 FL (80.0-100.0) (80.0-100.0) Mean Corpuscular Hemoglobin 28.9 PG 29.1 PG (27.0-34.0) (27.0-34.0) Mean Corpuscular Hemoglobin 32.5 % 32.6 % Concent (32.0-36.0) (32.0-36.0) Red Cell Distribution Width 16.2 % 16.4 % (11.6-17.2) (11.6-17.2) Platelet Count 139 TH/MM3 139 TH/MM3 (150-450) (150-450) Mean Platelet Volume 10.3 FL 10.2 FL (7.0-11.0) (7.0-11.0) Neutrophils (%) (Auto) 93.8 % 92.6 % (16.0-70.0) (16.0-70.0) Lymphocytes (%) (Auto) 2.4 % 3.7 % (9.0-44.0) (9.0-44.0) Monocytes (%) (Auto) 3.7 % (0.0-8.0) 3.5 % (0.0-8.0) Eosinophils (%) (Auto) 0.0 % (0.0-4.0) 0.0 % (0.0-4.0) Basophils (%) (Auto) 0.1 % (0.0-2.0) 0.2 % (0.0-2.0) Neutrophils # (Auto) 11.1 TH/MM3 7.8 TH/MM3 (1.8-7.7) (1.8-7.7) Lymphocytes # (Auto) 0.3 TH/MM3 0.3 TH/MM3 (1.0-4.8) (1.0-4.8) Monocytes # (Auto) 0.4 TH/MM3 0.3 TH/MM3 (0-0.9) (0-0.9) Eosinophils # (Auto) 0.0 TH/MM3 0.0 TH/MM3 (0-0.4) (0-0.4) Basophils # (Auto) 0.0 TH/MM3 0.0 TH/MM3 (0-0.2) (0-0.2) CBC Comment DIFF FINAL DIFF FINAL Differential Comment Sodium Level 144 MEQ/L 150 MEQ/L (136-145) (136-145) Potassium Level 4.3 MEQ/L 4.4 MEQ/L (3.5-5.1) (3.5-5.1) Chloride Level 110 MEQ/L 113 MEQ/L (98-107) (98-107) Carbon Dioxide Level 27.8 MEQ/L 30.2 MEQ/L (21.0-32.0) (21.0-32.0) Anion Gap 6 MEQ/L (5-15) 7 MEQ/L (5-15) Blood Urea Nitrogen 35 MG/DL (7-18) 35 MG/DL (7-18) Creatinine 0.57 MG/DL 0.61 MG/DL (0.50-1.00) (0.50-1.00) Estimat Glomerular Filtration 105 ML/MIN 97 ML/MIN (>89) Rate (>89) Random Glucose 174 MG/DL 185 MG/DL (74-106) (74-106) Calcium Level 8.1 MG/DL 8.1 MG/DL (8.5-10.1) (8.5-10.1) Phosphorus Level 1.7 MG/DL 2.2 MG/DL 3.5 MG/DL (2.5-4.9) (2.5-4.9) (2.5-4.9) Magnesium Level 2.7 MG/DL 2.8 MG/DL (1.5-2.5) (1.5-2.5) Blood Gas Puncture Site RT RADIAL Blood Gas Patient Temperature 98.6 Blood Gas HCO3 27 mmol/L (22-26) Blood Gas Base Excess 0.3 mmol/L (-2-2) Blood Gas Oxygen Saturation 97 % (90-100) Arterial Blood pH 7.26 (7.380-7.420) Arterial Blood Partial 62 mmHg (38-42) Pressure CO2 Arterial Blood Partial 139 mmHg Pressure O2 (61-120) Arterial Blood Oxygen Content 16.7 Vol % (12.0-20.0) Arterial Blood 0.8 % (0-4) Carboxyhemoglobin Arterial Blood Methemoglobin 0.9 % (0-2) Blood Gas Hemoglobin 12.0 G/DL (12.0-16.0) Oxygen Delivery Device VENTILATOR Blood Gas Ventilator Setting AC 550/14/7 PEEP Blood Gas Inspired Oxygen 40 % Total Bilirubin 0.3 MG/DL (0.2-1.0) Aspartate Amino Transf 84 U/L (15-37) (AST/SGOT) Alanine Aminotransferase 160 U/L (10-53) (ALT/SGPT) Alkaline Phosphatase 141 U/L (45-117) Total Protein 5.9 GM/DL (6.4-8.2) Albumin 2.4 GM/DL (3.4-5.0) Test 3/7/17 3/8/17 3/8/17 11:53 03:30 05:00 Blood Gas Puncture Site RT RADIAL RT RADIAL Blood Gas Patient Temperature 98.6 98.6 Blood Gas HCO3 27 mmol/L 29 mmol/L (22-26) (22-26) Blood Gas Base Excess 1.3 mmol/L 4.6 mmol/L (-2-2) (-2-2) Blood Gas Oxygen Saturation 95 % (90-100) 95 % (90-100) Arterial Blood pH 7.31 7.42 (7.380-7.420) (7.380-7.420) Arterial Blood Partial 55 mmHg (38-42) 45 mmHg (38-42) Pressure CO2 Arterial Blood Partial 101 mmHg 86 mmHg Pressure O2 (61-120) (61-120) Arterial Blood Oxygen Content 17.1 Vol % 20.6 Vol % (12.0-20.0) (12.0-20.0) Arterial Blood 1.0 % (0-4) 0.9 % (0-4) Carboxyhemoglobin Arterial Blood Methemoglobin 1.2 % (0-2) 1.4 % (0-2) Blood Gas Hemoglobin 12.7 G/DL 15.4 G/DL (12.0-16.0) (12.0-16.0) Oxygen Delivery Device VENTILATOR VENTILATOR Blood Gas Ventilator Setting AC14,550, AC20/550/7PEEP 7PEEP Blood Gas Inspired Oxygen 40 % 50 % White Blood Count 7.4 TH/MM3 (4.0-11.0) Red Blood Count 4.31 MIL/MM3 (4.00-5.30) Hemoglobin 12.5 GM/DL (11.6-15.3) Hematocrit 38.2 % (35.0-46.0) Mean Corpuscular Volume 88.6 FL (80.0-100.0) Mean Corpuscular Hemoglobin 29.0 PG (27.0-34.0) Mean Corpuscular Hemoglobin 32.7 % Concent (32.0-36.0) Red Cell Distribution Width 16.6 % (11.6-17.2) Platelet Count 134 TH/MM3 (150-450) Mean Platelet Volume 10.3 FL (7.0-11.0) Neutrophils (%) (Auto) 87.7 % (16.0-70.0) Lymphocytes (%) (Auto) 5.4 % (9.0-44.0) Monocytes (%) (Auto) 6.8 % (0.0-8.0) Eosinophils (%) (Auto) 0.0 % (0.0-4.0) Basophils (%) (Auto) 0.1 % (0.0-2.0) Neutrophils # (Auto) 6.5 TH/MM3 (1.8-7.7) Lymphocytes # (Auto) 0.4 TH/MM3 (1.0-4.8) Monocytes # (Auto) 0.5 TH/MM3 (0-0.9) Eosinophils # (Auto) 0.0 TH/MM3 (0-0.4) Basophils # (Auto) 0.0 TH/MM3 (0-0.2) CBC Comment AUTO DIFF Differential Comment AUTO DIFF CONFIRMED Platelet Estimate LOW (NORMAL) Platelet Morphology Comment NORMAL (NORMAL) Sodium Level 150 MEQ/L (136-145) Potassium Level 5.1 MEQ/L (3.5-5.1) Chloride Level 112 MEQ/L (98-107) Carbon Dioxide Level 31.5 MEQ/L (21.0-32.0) Anion Gap 7 MEQ/L (5-15) Blood Urea Nitrogen 35 MG/DL (7-18) Creatinine 0.67 MG/DL (0.50-1.00) Estimat Glomerular Filtration 87 ML/MIN (>89) Rate Random Glucose 192 MG/DL (74-106) Calcium Level 8.1 MG/DL (8.5-10.1) Phosphorus Level 3.0 MG/DL (2.5-4.9) Magnesium Level 2.9 MG/DL (1.5-2.5) Total Bilirubin 0.5 MG/DL (0.2-1.0) Aspartate Amino Transf 85 U/L (15-37) (AST/SGOT) Alanine Aminotransferase 179 U/L (10-53) (ALT/SGPT) Alkaline Phosphatase 132 U/L (45-117) Total Protein 5.9 GM/DL (6.4-8.2) Albumin 2.5 GM/DL (3.4-5.0) Result Diagram: 10/05/16 0330 10/05/16 033 Microbiology Microbiology Date/Time Procedure Status Source Growth 09/30/16 18:45 Aerobic Blood Culture - Final Complete Blood Peripheral NO GROWTH IN 5 DAYS 09/30/16 18:45 Anaerobic Blood Culture - Final Complete Blood Peripheral NO GROWTH IN 5 DAYS Imaging Last Impressions Chest X-Ray 10/05/16 0600 Signed Impressions: Service Date/Time: Wednesday, October 05, 2016 04:33 - CONCLUSION: 1. Hyperinflation with bibasilar atelectatic changes, right greater than left. 2. Stable position of life support tubes. Pedrito Tavera MD CT Angiography 10/01/16 0000 Signed Impressions: Service Date/Time: Saturday, October 01, 2016 02:54 - CONCLUSION: No evidence of pulmonary embolism Oni Zamora MD Procedures * 09/30/16 -intubation * 09/30/16 -right IJ central line placement . Patient/Family Conference Present at Family Conference: Oni. Family Conference Time (mins): 45 Family Conference Location: Bedside Issues Discussed: * Palliative care role, purpose, approach * Additional medical, psychosocial, and spiritual history * Patients general health, functional status, and cognitive changes in the months leading up to the current hospitalization * Family understanding of the current medical problems * Family understanding of prognosis * Patients goals of care as best understood from advance directives and/or conversations and/or values * Current medical treatment options and benefits/burdens of those options * Likely scenarios comparing ongoing aggressive care with a transition to comfort measures only * Questions answered to the best of my ability * Palliative care contact information provided . Assessment and Plan Disease Oriented Problem List: (1) Acute hypoxemic respiratory failure (2) COPD with exacerbation (3) Hypertension Symptom Scale: (1) Shortness of breath 0-10 Scale: Unable to quantify Comment: Secondary to COPD exacerbation, acute hypoxemic respiratory failure. Remains on mechanical ventilation. (2) Anxiety 0-10 Scale: Unable to quantify Comment: History of anxiety. Currently sedated. (3) Debility 0-10 Scale: Unable to quantify Comment: Secondary to hospitalization, bedbound state. 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 Spiritual: Christian. Legal: As per , living will completed. However able, unable to locate at home. Pending copy. Ethical issues impacting care: No ethical issues have been identified. . Important Contacts Patient's Oni Sandoval [phone]. Daughter Romy [phone]. . Prognosis Mrs. Sandoval is a 70-year-old female with a medical history of COPD -O2 dependent , anxiety and hypertension who presented to ED on 09/30/16 via EMS secondary to respiratory distress. Patient intubated, on mechanical ventilation secondary to acute hypoxemic respiratory failure. Patient's overall prognosis is poor given her age, multiple comorbidities, and acute events. Family declining cardiac code, tracheostomy and PEG placement and are electing to transition patient to comfort directed care given her poor prognosis for an improved quality of life. Pending family members to arrive within the next 48 hours. . Code Status: No Code Plan * CODE STATUS: No code. Patient currently intubated. However, family electing no code/do not reintubated if patient extubate. * MEDICAL-DECISION MAKING: Patient incapacitated secondary to clinical condition. As per [place] statute, medical decision making proxy falls to patient's . * GOALS OF CARE: Family electing for no code/do not reintubate if patient extubate. No tracheostomy or PEG tube placement. Family electing to transition patient to comfort -directed care if clinical condition remains unchanged. Pending family members to arrive within the next 48 hours. Tentative withdrawal of life support early next week. Family made aware that given patient's critical condition, she may not survive until then. Family verbalized understanding. * SYMPTOMS: == Shortness of breath, secondary to COPD exacerbation and current acute hypoxemic respiratory failure. Remains intubated on mechanical ventilation. Not tolerating CPAP trials. Family electing NO TRACH. == Debility , secondary to acute events and hospitalization. == Anxiety, chronic. Taking Xanax at home. Patient currently sedated with propofol and fentanyl drip. Appears calm. * Anticipatory guidance regarding withdrawal life support/allow natural provided to . * Ongoing emotional support and active listening provided. * Care contact information has been provided to . * Palliative care will continue to follow-up for further clarifications of goals of care as the clinical course evolves. . Time Spent Total Floor Time (mins): 80 (Total time to include review and summarization of available medical records to include prior hospitalizations and ED visits, physical exam, bedside conversation with and case discussion with bedside RN.) >50% Counseling/Coord of Care: Yes Thank you for the opportunity to participate in the care of Ms. Sandoval. Attestation To help prompt me to consider important information that might be impacting today's encounter and assessment, information from prior notes written by myself or my colleagues may have been "brought forward" into today's note. My signature on this note, however, is an attestation that I personally performed the exam, history, and/or decision-making noted today, and, unless otherwise indicated, the interactions with patient, family, and staff as well as the review of records all occurred today. I also attest that the listed assessment and stated plan reflect my best clinical judgment today based on the combination of historical information, prior notes, and today's exam/ interactions. When time spent is documented, it refers only to time spent today by the signer, or if indicated, combined time spent today by collaborating physician/nurse practitioner. Kateryna Moyer Oct 05, 2016 14:00
[2016-10-05] MEDS: ENALAPRIL MALEATE 2.5 MG TAB PO SCH (19:28)
[2016-10-06] VITALS (17 sets, daily range): BP systolic 155–190; BP diastolic 72–107; PULSE 83–120; RESP 20–22; TEMP 98.9–100.3; O2SAT 90–98
[2016-10-06] MEDS: PROPOFOL 1000 MG/100 ML INJ 100 ML IV SCH ×6 (01:37→19:46)
[2016-10-06] MEDS: RESP: ALBUTEROL 2.5 MG/IPRATROPIUM 0.5 MG NEB (SCH) NEB ×8 (02:01→23:12)
[2016-10-06] MEDS: methylPREDNISolone SOD SUCC 125 MG/2 ML VIAL IV PUSH SCH ×4 (04:32→23:47)
[2016-10-06] MEDS: INSULIN ASPART SUPPLEMENTAL SCALE SQ SCH ×4 (04:32→19:45)
[2016-10-06] MEDS: PIPERACIL-TAZO 3.375 GM PREMIX 50 ML IV SCH ×4 (04:32→19:44)
[2016-10-06 05:56] LABS: BLOOD GAS BASE EXCESS 7.1 mmol/L (-2-2); BLOOD GAS CARBOXYHEMOGLOBIN 1.1 % (0-4); BLOOD GAS HCO3 31 mmol/L (22-26); BLOOD GAS METHEMOGLOBIN 1.1 % (0-2); BLOOD GAS O2 HGB SATURATION 94 % (90-100); BLOOD GAS OXYGEN CONTENT 18.3 Vol % (12.0-20.0); BLOOD GAS PCO2 45 mmHg (38-42); BLOOD GAS PO2 79 mmHg (61-120); BLOOD GAS TOTAL HGB 13.8 G/DL (12.0-16.0); CRITICAL VALUE NO; DRAW SITE LT RADIAL; FIO2 60 %; NUMBER OF ARTERIAL PUNCTURES 1; OXYGEN DEVICE VENTILATOR; STAT NO; TEMP CORR TO 98.6; ULNAR PULSE PRESENT; VENT SETTINGS AC 20/550/7PEEP
--- NOTE | 2016-10-06 07:01 | RADRPT ---
EXAM DATE/TIME: 10/06/2016 05:26 [place] COMPARISON: CHEST SINGLE AP, October 05, 2016, 4:33. INDICATIONS : Shortness of breath, possible pulmonary disease. MEDICAL HISTORY : Chronic obstructive pulmonary disease. SURGICAL HISTORY : None. ENCOUNTER: Subsequent ACUITY: 1 week PAIN SCORE: Non-responsive. LOCATION: Bilateral chest FINDINGS: A single view of the chest demonstrates worsening bibasilar effusions with atelectasis. Heart size is normal. Endotracheal and nasogastric tubes as well as the right subclavian central venous catheter a re stable in position. CONCLUSION: Bibasilar effusion/atelectasis with slight interval worsening. Pedrito Tavera MD on October 06, 2016 at 6:56 Board Certified Radiologist. This report was verified electronically.
[2016-10-06 07:14] LABS: AUTOMATED NEUTROPHIL # 6.6 TH/MM3 (1.8-7.7); BASOPHIL % 0.1 % (0.0-2.0); HEMATOCRIT 36.2 % (35.0-46.0); LYMPH % 9.6 % (9.0-44.0); LYMPHOCYTE # 0.8 TH/MM3 (1.0-4.8); MEAN CELL VOLUME 88.1 FL (80.0-100.0); MEAN CORPUSCULAR HEMOGLOBIN 28.6 PG (27.0-34.0); MEAN CORPUSCULAR HGB CONC 32.5 % (32.0-36.0); MONO % 9.8 % (0.0-8.0); NEUT % 80.5 % (16.0-70.0); PLATELET COUNT 129 TH/MM3 (150-450); RED BLOOD COUNT 4.11 MIL/MM3 (4.00-5.30); RED CELL DISTRIBUTION WIDTH 16.4 % (11.6-17.2); WHITE BLOOD COUNT 8.3 TH/MM3 (4.0-11.0)
[2016-10-06 07:32] LABS: HEMO FLAGS AUTO DIFF
[2016-10-06 07:33] LABS: ALT (GPT) 191 U/L (10-53); ANION GAP 5 MEQ/L (5-15); AST (GOT) 90 U/L (15-37); BICARBONATE 33.6 MEQ/L (21.0-32.0); BLOOD UREA NITROGEN 40 MG/DL (7-18); CHLORIDE 110 MEQ/L (98-107); GLOMERULAR FILTRATION RATE 116 ML/MIN (>89); MAGNESIUM 2.6 MG/DL (1.5-2.5); POTASSIUM 4.8 MEQ/L (3.5-5.1); SODIUM (NA) 149 MEQ/L (136-145)
[2016-10-06 07:35] LABS: ALKALINE PHOSPHATASE 106 U/L (45-117); TOTAL BILIRUBIN ADULT 0.5 MG/DL (0.2-1.0)
[2016-10-06] MEDS: PANTOPRAZOLE SODIUM 40 MG VIAL IV SCH (08:19)
[2016-10-06] MEDS: PRAVASTATIN SOD 40 MG TAB PO SCH (08:19)
[2016-10-06] MEDS: CARVEDILOL 3.125 MG TAB PO SCH ×2 (08:19→19:45)
[2016-10-06] MEDS: ENALAPRIL MALEATE 2.5 MG TAB PO SCH ×2 (08:19→19:44)
[2016-10-06] MEDS: BENEPROTEIN POWDER 1 PACK G-TUBE SCH ×3 (09:00→18:00)
[2016-10-06] MEDS: SODIUM CHLORIDE 0.9% FLUSH 5 ML FLUSH IVF SCH ×2 (09:00→19:44)
[2016-10-06] MEDS: BUDESONIDE-FORMOTEROL 160/4.5 MCG INHALER INH SCH ×2 (09:00→19:40)
[2016-10-06 09:10] LABS: BANDS 8 % (0-6); MYELOCYTES 1 % (0-0); NEUTROPHIL # MANUAL DIFF 7.2 TH/MM3 (1.8-7.7); PLATELET ESTIMATE SMEAR LOW (NORMAL); PLATELET MORPHOLOGY NORMAL (NORMAL); POLYS (SEG NEUTROPHILS) 78 % (16-70); SCAN/DIFF FINAL DIFF MANUAL; WBC DIFF SAMPLE 100
[2016-10-06] MEDS ORDERED: RESP: ALBUTEROL 2.5 MG/IPRATROPIUM 0.5 MG NEB (PRN) NEB (09:45)
[2016-10-06] MEDS: ASPIRIN 81 MG CHEW TAB TUBE SCH (09:47)
[2016-10-06] MEDS: fentaNYL DRIP 250 ML IV SCH ×3 (09:47→19:57)
--- NOTE | 2016-10-06 12:08 | HHI.HCPN ---
Reason for visit a. To assist with evaluation and management of symptoms including: Debility and shortness of breath. b. To assist medical decision maker(s) with: better understanding of current medical conditions; weighing benefits/burdens of medical treatment options; making medical treatment decisions. . Subjective/Interval History Patient seen in ICU. She remains in critical condition, intubated, sedated on mechanical ventilation. A febrile, tachycardic with heart rate in the low 110s. Hypertensive with SBP in the [id number]. Currently vented at 60% FiO2, RR 20, O2 sat in the low 90s. Remains sedated on fentanyl and propofol drip. Patient appears calm, unresponsive to verbal or tactile stimuli. Brother David at bedside. Laboratory today WBC 8.3, Hgb 11.8, platelet count 129. Sodium 149, potassium 4.8, BUN/creatinine 40/0.52. Albumin 2.2. LFTs mildly elevated to include AST 90, ALT 191, alkaline phosphatase 106. Chest x-ray today showing bibasilar effusion/atelectasis with slight interval worsening. . Family/friend interactions Spoke with patient's brother David at bedside. Medical update provided. Brother with a very good understanding of patient's current clinical condition. Brother tells me that plan is for additional family members to arrive with a tentative withdrawal life support early next week given patient's poor prognosis for meaningful recovery. Brother verbalized that patient wouldn't want tracheostomy and PEG. Anticipatory guidance provided. Active listening and ongoing emotional support provided. All questions were answered in great detail. . Advance Directives Living Will: Completed, but not made available Health Care Surrogate: Never completed Durable Power of Xray Tech: Never completed Advance Directive Specifics Date completed: Has been unable to locate at home. Health Care Surrogate(s): As per [place] statute, healthcare proxy decision-making falls to patient's . . Documented care wishes: Living well not available at this time. unable to locate at home. . Significant change in goals: No code. DNR/DNI -no tracheostomy or PEG tube. Likely to transition to comfort directed care early next week given patient's worsening clinical condition. Objective Vital Signs Date Time Temp Pulse Resp B/P Pulse Ox O2 Delivery O2 Flow Rate FiO2 10/06/16 08:36 93 60 10/06/16 08:00 60 10/06/16 08:00 98.9 120 20 190/107 91 10/06/16 06:00 89 10/06/16 04:18 98 60 10/06/16 04:12 94 80 10/06/16 04:00 99.2 88 20 171/89 90 10/06/16 04:00 60 10/06/16 04:00 88 10/06/16 02:00 112 10/06/16 00:04 91 50 10/06/16 00:00 111 10/06/16 00:00 50 10/06/16 00:00 98.9 111 20 160/81 95 10/05/16 22:00 120 10/05/16 20:00 50 10/05/16 20:00 90 10/05/16 20:00 98.2 90 20 122/73 93 10/05/16 19:58 95 50 10/05/16 18:00 125 10/05/16 16:49 92 50 10/05/16 16:00 120 10/05/16 16:00 50 10/05/16 16:00 98.9 120 20 135/71 93 10/05/16 14:50 94 50 10/05/16 14:00 84 10/05/16 12:10 94 50 10/05/16 12:00 76 10/05/16 12:00 50 10/05/16 12:00 98.2 76 20 110/67 93 Intake & Output 10/06/16 10/06/16 07:00 19:00 Intake Total 1875 ml Output Total 953 ml Balance 922 ml IV Total 1238 ml Tube Feeding 637 ml Other 0 ml Output Urine Total 950 ml Stool Total 3 ml Physical Exam CONSTITUTIONAL/GENERAL: This is an elderly female in no acute distress. Sedated , intubated on mechanical ventilation. TUBES/LINES/DRAINS: Right IJ central line, ET tube, OG tube, Abreu catheter, SCDs. SKIN: No jaundice, rashes, or lesions. Scatter ecchymoses on upper extremities. No wounds seen anteriorly. HEAD: Atraumatic. Normocephalic. EYES: Pupils equal and round and reactive. No injection or drainage. Fundi not examined. ENT: Unable to evaluate hearing secondary to clinical condition. Nose without bleeding or purulent drainage. Unable to assess throat or oral cavity secondary to ET tube. NECK: Trachea midline. Supple. CARDIOVASCULAR: Tachycardic with heart rate in the low 110s. Regular rate and rhythm. Peripheral pulses symmetric. Bilaterally +1 edema to upper extremities. Mild cyanosis to bilateral hands/fingers. RESPIRATORY/CHEST: Symmetric. Coarse to auscultation. Breath sounds equal bilaterally. Intubated on mechanical ventilation. GASTROINTESTINAL: Abdomen soft,nondistended. Bowel sounds present. Ongoing tube feeding. GENITOURINARY: Without palpable bladder distension. Abreu catheter in place. NEUROLOGICAL: Sedated. Unresponsive to tactile or verbal stimuli. Not following any commands. . Diagnostic Tests Laboratory Laboratory Tests Test 10/03/16 10/04/16 10/04/16 10/04/16 22:55 04:30 04:55 11:53 Phosphorus Level 2.2 MG/DL 3.5 MG/DL (2.5-4.9) (2.5-4.9) Blood Gas Puncture Site RT RADIAL RT RADIAL Blood Gas Patient Temperature 98.6 98.6 Blood Gas HCO3 27 mmol/L 27 mmol/L (22-26) (22-26) Blood Gas Base Excess 0.3 mmol/L 1.3 mmol/L (-2-2) (-2-2) Blood Gas Oxygen Saturation 97 % (90-100) 95 % (90-100) Arterial Blood pH 7.26 7.31 (7.380-7.420) (7.380-7.420) Arterial Blood Partial 62 mmHg (38-42) 55 mmHg (38-42) Pressure CO2 Arterial Blood Partial 139 mmHg 101 mmHg Pressure O2 (61-120) (61-120) Arterial Blood Oxygen Content 16.7 Vol % 17.1 Vol % (12.0-20.0) (12.0-20.0) Arterial Blood 0.8 % (0-4) 1.0 % (0-4) Carboxyhemoglobin Arterial Blood Methemoglobin 0.9 % (0-2) 1.2 % (0-2) Blood Gas Hemoglobin 12.0 G/DL 12.7 G/DL (12.0-16.0) (12.0-16.0) Oxygen Delivery Device VENTILATOR VENTILATOR Blood Gas Ventilator Setting AC 550/14/7 AC14,550, PEEP 7PEEP Blood Gas Inspired Oxygen 40 % 40 % White Blood Count 8.5 TH/MM3 (4.0-11.0) Red Blood Count 4.25 MIL/MM3 (4.00-5.30) Hemoglobin 12.4 GM/DL (11.6-15.3) Hematocrit 37.9 % (35.0-46.0) Mean Corpuscular Volume 89.2 FL (80.0-100.0) Mean Corpuscular Hemoglobin 29.1 PG (27.0-34.0) Mean Corpuscular Hemoglobin 32.6 % Concent (32.0-36.0) Red Cell Distribution Width 16.4 % (11.6-17.2) Platelet Count 139 TH/MM3 (150-450) Mean Platelet Volume 10.2 FL (7.0-11.0) Neutrophils (%) (Auto) 92.6 % (16.0-70.0) Lymphocytes (%) (Auto) 3.7 % (9.0-44.0) Monocytes (%) (Auto) 3.5 % (0.0-8.0) Eosinophils (%) (Auto) 0.0 % (0.0-4.0) Basophils (%) (Auto) 0.2 % (0.0-2.0) Neutrophils # (Auto) 7.8 TH/MM3 (1.8-7.7) Lymphocytes # (Auto) 0.3 TH/MM3 (1.0-4.8) Monocytes # (Auto) 0.3 TH/MM3 (0-0.9) Eosinophils # (Auto) 0.0 TH/MM3 (0-0.4) Basophils # (Auto) 0.0 TH/MM3 (0-0.2) CBC Comment DIFF FINAL Differential Comment Sodium Level 150 MEQ/L (136-145) Potassium Level 4.4 MEQ/L (3.5-5.1) Chloride Level 113 MEQ/L (98-107) Carbon Dioxide Level 30.2 MEQ/L (21.0-32.0) Anion Gap 7 MEQ/L (5-15) Blood Urea Nitrogen 35 MG/DL (7-18) Creatinine 0.61 MG/DL (0.50-1.00) Estimat Glomerular Filtration 97 ML/MIN (>89) Rate Random Glucose 185 MG/DL (74-106) Calcium Level 8.1 MG/DL (8.5-10.1) Magnesium Level 2.8 MG/DL (1.5-2.5) Total Bilirubin 0.3 MG/DL (0.2-1.0) Aspartate Amino Transf 84 U/L (15-37) (AST/SGOT) Alanine Aminotransferase 160 U/L (10-53) (ALT/SGPT) Alkaline Phosphatase 141 U/L (45-117) Total Protein 5.9 GM/DL (6.4-8.2) Albumin 2.4 GM/DL (3.4-5.0) Test 10/05/16 10/05/16 10/06/16 10/06/16 03:30 05:00 05:45 06:00 White Blood Count 7.4 TH/MM3 8.3 TH/MM3 (4.0-11.0) (4.0-11.0) Red Blood Count 4.31 MIL/MM3 4.11 MIL/MM3 (4.00-5.30) (4.00-5.30) Hemoglobin 12.5 GM/DL 11.8 GM/DL (11.6-15.3) (11.6-15.3) Hematocrit 38.2 % 36.2 % (35.0-46.0) (35.0-46.0) Mean Corpuscular Volume 88.6 FL 88.1 FL (80.0-100.0) (80.0-100.0) Mean Corpuscular Hemoglobin 29.0 PG 28.6 PG (27.0-34.0) (27.0-34.0) Mean Corpuscular Hemoglobin 32.7 % 32.5 % Concent (32.0-36.0) (32.0-36.0) Red Cell Distribution Width 16.6 % 16.4 % (11.6-17.2) (11.6-17.2) Platelet Count 134 TH/MM3 129 TH/MM3 (150-450) (150-450) Mean Platelet Volume 10.3 FL 10.2 FL (7.0-11.0) (7.0-11.0) Neutrophils (%) (Auto) 87.7 % 80.5 % (16.0-70.0) (16.0-70.0) Lymphocytes (%) (Auto) 5.4 % 9.6 % (9.0-44.0) (9.0-44.0) Monocytes (%) (Auto) 6.8 % (0.0-8.0) 9.8 % (0.0-8.0) Eosinophils (%) (Auto) 0.0 % (0.0-4.0) 0.0 % (0.0-4.0) Basophils (%) (Auto) 0.1 % (0.0-2.0) 0.1 % (0.0-2.0) Neutrophils # (Auto) 6.5 TH/MM3 6.6 TH/MM3 (1.8-7.7) (1.8-7.7) Lymphocytes # (Auto) 0.4 TH/MM3 0.8 TH/MM3 (1.0-4.8) (1.0-4.8) Monocytes # (Auto) 0.5 TH/MM3 0.8 TH/MM3 (0-0.9) (0-0.9) Eosinophils # (Auto) 0.0 TH/MM3 0.0 TH/MM3 (0-0.4) (0-0.4) Basophils # (Auto) 0.0 TH/MM3 0.0 TH/MM3 (0-0.2) (0-0.2) CBC Comment AUTO DIFF AUTO DIFF Differential Comment AUTO DIFF FINAL DIFF CONFIRMED MANUAL Platelet Estimate LOW (NORMAL) LOW (NORMAL) Platelet Morphology Comment NORMAL NORMAL (NORMAL) (NORMAL) Sodium Level 150 MEQ/L 149 MEQ/L (136-145) (136-145) Potassium Level 5.1 MEQ/L 4.8 MEQ/L (3.5-5.1) (3.5-5.1) Chloride Level 112 MEQ/L 110 MEQ/L (98-107) (98-107) Carbon Dioxide Level 31.5 MEQ/L 33.6 MEQ/L (21.0-32.0) (21.0-32.0) Anion Gap 7 MEQ/L (5-15) 5 MEQ/L (5-15) Blood Urea Nitrogen 35 MG/DL (7-18) 40 MG/DL (7-18) Creatinine 0.67 MG/DL 0.52 MG/DL (0.50-1.00) (0.50-1.00) Estimat Glomerular Filtration 87 ML/MIN (>89) 116 ML/MIN Rate (>89) Random Glucose 192 MG/DL 108 MG/DL (74-106) (74-106) Calcium Level 8.1 MG/DL 7.8 MG/DL (8.5-10.1) (8.5-10.1) Phosphorus Level 3.0 MG/DL 2.8 MG/DL (2.5-4.9) (2.5-4.9) Magnesium Level 2.9 MG/DL 2.6 MG/DL (1.5-2.5) (1.5-2.5) Total Bilirubin 0.5 MG/DL 0.5 MG/DL (0.2-1.0) (0.2-1.0) Aspartate Amino Transf 85 U/L (15-37) 90 U/L (15-37) (AST/SGOT) Alanine Aminotransferase 179 U/L (10-53) 191 U/L (10-53) (ALT/SGPT) Alkaline Phosphatase 132 U/L 106 U/L (45-117) (45-117) Total Protein 5.9 GM/DL 5.2 GM/DL (6.4-8.2) (6.4-8.2) Albumin 2.5 GM/DL 2.2 GM/DL (3.4-5.0) (3.4-5.0) Blood Gas Puncture Site RT RADIAL LT RADIAL Blood Gas Patient Temperature 98.6 98.6 Blood Gas HCO3 29 mmol/L 31 mmol/L (22-26) (22-26) Blood Gas Base Excess 4.6 mmol/L 7.1 mmol/L (-2-2) (-2-2) Blood Gas Oxygen Saturation 95 % (90-100) 94 % (90-100) Arterial Blood pH 7.42 7.45 (7.380-7.420) (7.380-7.420) Arterial Blood Partial 45 mmHg (38-42) 45 mmHg (38-42) Pressure CO2 Arterial Blood Partial 86 mmHg 79 mmHg Pressure O2 (61-120) (61-120) Arterial Blood Oxygen Content 20.6 Vol % 18.3 Vol % (12.0-20.0) (12.0-20.0) Arterial Blood 0.9 % (0-4) 1.1 % (0-4) Carboxyhemoglobin Arterial Blood Methemoglobin 1.4 % (0-2) 1.1 % (0-2) Blood Gas Hemoglobin 15.4 G/DL 13.8 G/DL (12.0-16.0) (12.0-16.0) Oxygen Delivery Device VENTILATOR VENTILATOR Blood Gas Ventilator Setting AC20/550/7PEEP AC 20/550/7PEEP Blood Gas Inspired Oxygen 50 % 60 % Differential Total Cells 100 Counted Neutrophils % (Manual) 78 % (16-70) Band Neutrophils % 8 % (0-6) Lymphocytes % 8 % (9-44) Monocytes % 5 % (0-8) Neutrophils # (Manual) 7.2 TH/MM3 (1.8-7.7) Myelocytes 1 % (0-0) Result Diagram: 10/06/16 0600 10/06/16 06 Imaging Last 24 hours Impressions Chest X-Ray 10/06/16 06 Signed Impressions: Service Date/Time: , October 06, 2016 05:26 - CONCLUSION: Bibasilar effusion/atelectasis with slight interval worsening. Pedrito Tavera MD Procedures * 09/30/16 -intubation * 09/30/16 -right IJ central line placement . Assessment and Plan Disease Oriented Problem List: (1) Acute hypoxemic respiratory failure (2) COPD with exacerbation (3) Hypertension Symptom Scale: (1) Shortness of breath 0-10 Scale: Unable to quantify Comment: Secondary to COPD exacerbation, acute hypoxemic respiratory failure. Remains on mechanical ventilation. (2) Anxiety 0-10 Scale: Unable to quantify Comment: History of anxiety. Currently sedated. (3) Debility 0-10 Scale: Unable to quantify Comment: Secondary to hospitalization, bedbound state. 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 Spiritual: Pentecostalism. Legal: As per , living will completed. However able, unable to locate at home. Pending copy. Ethical issues impacting care: No ethical issues have been identified. . Important Contacts Patient's Oni Sandoval [phone]. Daughter Romy [phone]. . Prognosis Mrs. Sandoval is a 70-year-old female with a medical history of COPD -O2 dependent , anxiety and hypertension who presented to ED on 09/30/16 via EMS secondary to respiratory distress. Patient intubated, on mechanical ventilation secondary to acute hypoxemic respiratory failure. Patient's overall prognosis is poor given her age, multiple comorbidities, and acute events. Family declining cardiac code, tracheostomy and PEG placement and are electing to transition patient to comfort directed care given her poor prognosis for an improved quality of life. Pending family members to arrive within the next 48 hours. . Code Status: No Code Plan * CODE STATUS: No code. Patient currently intubated. However, family electing no code/do not reintubated if patient extubate. * MEDICAL-DECISION MAKING: Patient incapacitated secondary to clinical condition. As per [place] statute, medical decision making proxy falls to patient's . * GOALS OF CARE: Family electing for no code/do not reintubate if patient extubate. No tracheostomy or PEG tube placement. Family electing to transition patient to comfort -directed care if clinical condition remains unchanged -tentative withdrawal life support for early next week. * SYMPTOMS: == Shortness of breath, secondary to COPD exacerbation and current acute hypoxemic respiratory failure. Remains intubated on mechanical ventilation. Not tolerating CPAP trials. Family electing NO TRACH. == Debility , secondary to acute events and hospitalization. == Anxiety, chronic. Taking Xanax at home. Patient currently sedated with propofol and fentanyl drip. Appears calm. * Anticipatory guidance regarding withdrawal life support/allow natural provided to . * Ongoing emotional support and active listening provided. * Care contact information has been provided to patient's brother and . * Palliative care will continue to follow-up for further clarifications of goals of care as the clinical course evolves. . Time Spent Total Floor Time (mins): 36 (Total time to include review of medical records, physical exam, bedside conversation with patient's brother, and case discussion with bedside RN Holland.) >50% Counseling/Coord of Care: Yes Attestation To help prompt me to consider important information that might be impacting today's encounter and assessment, information from prior notes written by myself or my colleagues may have been "brought forward" into today's note. My signature on this note, however, is an attestation that I personally performed the exam, history, and/or decision-making noted today, and, unless otherwise indicated, the interactions with patient, family, and staff as well as the review of records all occurred today. I also attest that the listed assessment and stated plan reflect my best clinical judgment today based on the combination of historical information, prior notes, and today's exam/ interactions. When time spent is documented, it refers only to time spent today by the signer, or if indicated, combined time spent today by collaborating physician/nurse practitioner. Kateryna Moyer Oct 06, 2016 12:08
[2016-10-06] MEDS: CHLORHEXIDINE 0.12% (ORAL KIT) 15 ML CUP MT SCH ×2 (13:41→19:44)
--- NOTE | 2016-10-06 14:57 | HHI.CCPN ---
Subjective Remarks/Hospital Course Patient is a 78-year-old white female with past medical history significant for COPD on 2L home O2, HTN, anxiety who was brought in [place] ER by [facility] for respiratory distress. Apparently patient had been increasingly short of breath for 1 day and used her nebulizer treatments without relief. Patient's oxygen saturation was 69% on 2 LNC on [facility] arrival and was given duonebsx3 and methylprednisolone 125mg IV. In the emergency department patient was very tachypneic hypoxic and was immediately placed on BIPAP. Patient remained tachypneic in respiratory distress on BiPAP and was intubated and placed on mechanical ventilation I evaluated the patient in the ED. Patient is asynchronous and tachypneic on the ventilator, agitated on sedation. I have requested neuromuscular paralysis 50 mg rocuronium 1. ABG shows pH 7.25 PCO2 of 56 and PO2 481. Patient will be treated with IV Solu-Medrol and DuoNeb scheduled breathing treatments and empiric Levaquin will be added for COPD exacerbation. Patient has mild troponin elevation no acute EKG changes. This is most likely from severe COPD exacerbation and severe hypoxemia. 3/4: The patient continues to have ventilator dyssynchrony, sedation increased. Plan for CPAP trials this afternoon. 10/02:The patient continues on Heparin infusion, echo performed awaiting results.CPAP trials attempted this am, unsuccessful. Elevation noted in WBC, possibly secondary to steroids continues on Levaquin, will change to Zosyn to expand coverage with noted pulmonary opacities on CXR. 10/03 no acute issues 10/04 still respiratory acidosis, slightly improving 10/05 severe respiratory distress while off sedation, bronchospasm, hypoxemia 10/06 Remains intubated, occasionally difficult to oxygenate due to bronchospasm, ready to wean Objective Vital Signs Date Time Temp Pulse Resp B/P Pulse Ox O2 Delivery O2 Flow Rate FiO2 10/06/16 13:25 92 60 10/06/16 12:00 100.2 95 22 182/95 Intake and Output 10/05/16 10/05/16 10/06/16 08:00 16:00 00:00 Intake Total 928 ml 981 ml 987 ml Output Total 403 ml 462 ml 601 ml Balance 525 ml 519 ml 386 ml Result Diagram: 10/06/16 0600 10/06/16 0600 Other Results Laboratory Tests Test 10/06/16 05:45 Blood Gas Puncture Site LT RADIAL Blood Gas Patient Temperature 98.6 Blood Gas HCO3 31 mmol/L (22-26) Blood Gas Base Excess 7.1 mmol/L (-2-2) Blood Gas Oxygen Saturation 94 % (90-100) Arterial Blood pH 7.45 (7.380-7.420) Arterial Blood Partial 45 mmHg (38-42) Pressure CO2 Arterial Blood Partial 79 mmHg Pressure O2 (61-120) Arterial Blood Oxygen Content 18.3 Vol % (12.0-20.0) Arterial Blood 1.1 % (0-4) Carboxyhemoglobin Arterial Blood Methemoglobin 1.1 % (0-2) Blood Gas Hemoglobin 13.8 G/DL (12.0-16.0) Oxygen Delivery Device VENTILATOR Blood Gas Ventilator Setting AC 20/550/7PEEP Blood Gas Inspired Oxygen 60 % Imaging Chest x-ray no acute findings Objective Remarks GENERAL: 70yo F who is intubated sedated with propofol fentanyl, breathing about the vent a synchronous agitated SKIN: Warm and dry. HEAD: Atraumatic. Normocephalic. ENT: Orotracheally intubated NECK: Trachea midline. No JVD. CARDIOVASCULAR: Tachycardic in the 110s. No murmurs RESPIRATORY: Air entry equal bilaterally, severe bilateral expiratory wheezing. GASTROINTESTINAL: Abdomen soft, non-tender, nondistended. Well-healed previous surgical scar MUSCULOSKELETAL: No obvious deformities. No clubbing. No cyanosis. No edema. NEUROLOGICAL: Intubated sedated. Moving all extremities not following commands Date of Insertion: Sep 30, 2016 A/P Assessment and Plan NEURO: - Continue Sedation vacation as respiratory allows - off Midazolam infusion - Continue Fentanyl and Propofol infusion - will use Versed boluses PRN for ventilator synchrony RESP: Acute hypoxemic respiratory failure Acute COPD exacerbation Chronic COPD on 2 L home oxygen - Emergently intubated and placed on mechanical ventilation ACV 14/550/7 titrate FiO2 to keep saturation about 90% - Closely monitored avoid entrapping because of significant wheezing - Increased Solu-Medrol 60 mg IV every 6 hours - DuoNeb every 2 hours scheduled now -Off sedation patient goes to bronchospasm with air trapping precluding weaning trials CV: Hypotension due to sedation Tachycardia/SIRS Troponin elevation, from severe hypoxemia and COPD exacerbation NSTEMI - Normal saline IV at KVO - Lactic acid is normal, hypotension most likely sedation induced - Mild troponin elevation most likely secondary to severe hypoxemia, stress induced - F/U 2-D echo start aspirin, low-dose Coreg-Continue Heparin - Dr. Glynn , Cardiology input appreciated. Troponins resulted 2.14->3.47 ->2.14 - Restart Benzapril - watch for hyperkalemia - Hold simvastatin due to elevated LFTs GI: - Continue tube feeds Jevity 1.5 , goal rate 55cc/hr - IV Protonix, Colace for bowel regimen : -Monitor renal function closely. Abreu catheter. ID: - Check sputum culture, blood culture - Empiric Levaquin 750 mg day 2,( dc'd ) , expanded coverage Zosyn q 6hr, for COPD exacerbation HEME: -Monitor CBC, CMP, coags -Continue heparin infusion, CT PE imaging studies negative ENDO: Mild hyperglycemia most likely stress induced - Sliding-scale insulin - Electrolyte replacement per protocol PROPH: Bilateral lower extremity SCDs. Lovenox for DVT prophylaxis. Protonix for GI prophylaxis LINES: -Utilize peripheral IVs, central line if needed Critical Care: The total critical care time was 35 minutes. Time to perform other separately billable procedures was not included in the critical care time. Dhruv Tomas MD Oct 06, 2016 14:57
[2016-10-06] MEDS: CHLORHEXIDINE GLUCONATE 2 % 1 PACK (2 CLOTHS) TOP SCH (19:05)
[2016-10-07] VITALS (19 sets, daily range): BP systolic 115–150; BP diastolic 54–86; PULSE 77–108; RESP 20; TEMP 98.2–101; O2SAT 90–95
[2016-10-07] MEDS: ACETAMINOPHEN 325 MG TAB PO PRN ×2 (00:22→12:49)
[2016-10-07] MEDS: RESP: ALBUTEROL 2.5 MG/IPRATROPIUM 0.5 MG NEB (SCH) NEB ×6 (03:34→23:18)
[2016-10-07] MEDS: PIPERACIL-TAZO 3.375 GM PREMIX 50 ML IV SCH ×4 (04:15→20:12)
[2016-10-07] MEDS: PROPOFOL 1000 MG/100 ML INJ 100 ML IV SCH ×6 (04:15→20:11)
[2016-10-07] MEDS: INSULIN ASPART SUPPLEMENTAL SCALE SQ SCH ×4 (04:52→20:11)
[2016-10-07] MEDS: methylPREDNISolone SOD SUCC 125 MG/2 ML VIAL IV PUSH SCH ×4 (04:53→23:10)
[2016-10-07] MEDS: BUDESONIDE-FORMOTEROL 160/4.5 MCG INHALER INH SCH ×2 (08:00→19:55)
[2016-10-07] MEDS: PRAVASTATIN SOD 40 MG TAB PO SCH (08:21)
[2016-10-07] MEDS: ASPIRIN 81 MG CHEW TAB TUBE SCH (08:21)
[2016-10-07] MEDS: PANTOPRAZOLE SODIUM 40 MG VIAL IV SCH (08:21)
[2016-10-07] MEDS: CARVEDILOL 3.125 MG TAB PO SCH ×2 (08:22→20:11)
[2016-10-07] MEDS: ENALAPRIL MALEATE 2.5 MG TAB PO SCH ×2 (08:22→20:11)
[2016-10-07] MEDS: CHLORHEXIDINE 0.12% (ORAL KIT) 15 ML CUP MT SCH ×2 (08:25→20:00)
[2016-10-07 08:28] LABS: BICARBONATE 33.2 MEQ/L (21.0-32.0)
[2016-10-07] MEDS: BENEPROTEIN POWDER 1 PACK G-TUBE SCH ×3 (09:00→18:00)
[2016-10-07] MEDS: SODIUM CHLORIDE 0.9% FLUSH 5 ML FLUSH IVF SCH ×2 (09:46→20:10)
--- NOTE | 2016-10-07 11:34 | HHI.HCPN ---
Reason for visit a. To assist with evaluation and management of symptoms including: Debility and shortness of breath. b. To assist medical decision maker(s) with: better understanding of current medical conditions; weighing benefits/burdens of medical treatment options; making medical treatment decisions. . Subjective/Interval History Patient seen in ICU. She remains in critical condition, intubated, sedated on mechanical ventilation. Currently vented at 60% FiO2, RR 20, O2 sat in the low 90s. Max temperature 101.0, tachycardia with heart rate in the low 110s. Hypertensive with SBP in the 140s/150s. Remains sedated on fentanyl and propofol drip. Patient appears calm, unresponsive to verbal or tactile stimuli. Laboratory today including sodium 135, potassium 5, BUN/creatinine 37/ 0.51. LFTs remain mildly elevated to include AST 90, ALT 191, alkaline phosphatase 106. No new imaging. On tube feedings at 55 mL an hour, tolerating. . Family/friend interactions at bedside. Medical update provided. Plan remains to await for additional family members to visit over the weekend. Tentative withdrawal of life support on 10/10/16. Reviewed with possibility of CPAP trials over this weekend if vent settings allowed. Review difference between medical extubation versus withdrawal life support. In the event that patient is able to medically extubate over this weekend, family electing not to reintubate and to transition pt to comfort-directed care with hospice services. Family understand that medical extubation is not likely to occur secondary to clinical condition. All questions were answered in great detail. . Advance Directives Living Will: Completed, but not made available Health Care Surrogate: Never completed Durable Power of Lap Regulator: Never completed Advance Directive Specifics Date completed: Has been unable to locate at home. Health Care Surrogate(s): As per [place] statute, healthcare proxy decision-making falls to patient's . . Documented care wishes: Living well not available at this time. unable to locate at home. . Significant change in goals: No code. Family electing to transition patient to comfort directed care given her clinical condition. Pending additional family members to visit this weekend. Likely withdrawal life support this and coming 10/10/16. . Objective Vital Signs Date Time Temp Pulse Resp B/P Pulse Ox O2 Delivery O2 Flow Rate FiO2 10/07/16 10:00 107 10/07/16 08:53 92 60 10/07/16 08:00 99.4 107 20 142/86 94 10/07/16 08:00 60 10/07/16 08:00 107 10/07/16 06:00 77 10/07/16 04:03 92 60 10/07/16 04:00 50 10/07/16 04:00 108 10/07/16 04:00 101.0 101 20 150/83 91 10/07/16 02:00 97 10/07/16 01:09 92 60 10/07/16 00:00 50 10/07/16 00:00 98.2 89 20 115/54 92 10/07/16 00:00 108 10/06/16 22:03 91 60 10/06/16 22:00 83 10/06/16 20:00 108 10/06/16 20:00 50 10/06/16 20:00 98.9 108 20 155/72 92 10/06/16 19:45 94 60 10/06/16 16:54 93 60 10/06/16 16:00 100.3 114 20 166/96 93 10/06/16 16:00 60 10/06/16 13:25 92 60 10/06/16 12:00 60 10/06/16 12:00 100.2 95 22 182/95 96 Intake & Output 10/07/16 10/07/16 07:00 19:00 Intake Total 2155 ml Output Total 950 ml Balance 1205 ml IV Total 1404 ml Tube Feeding 751 ml Other 0 ml Output Urine Total 950 ml Physical Exam CONSTITUTIONAL/GENERAL: This is an elderly female in no acute distress. Sedated , intubated on mechanical ventilation. TUBES/LINES/DRAINS: Right IJ central line, ET tube, OG tube, Abreu catheter, SCDs. SKIN: No jaundice, rashes, or lesions. Scatter ecchymoses on upper extremities. No wounds seen anteriorly. HEAD: Atraumatic. Normocephalic. EYES: Pupils equal and round and reactive. No injection or drainage. Fundi not examined. ENT: Unable to evaluate hearing secondary to clinical condition. Nose without bleeding or purulent drainage. Unable to assess throat or oral cavity secondary to ET tube. NECK: Trachea midline. Supple. CARDIOVASCULAR: Tachycardic with heart rate in the low 110s. Regular rate and rhythm. Peripheral pulses symmetric. Bilaterally +1 edema to upper extremities. Mild cyanosis to bilateral hands/fingers. RESPIRATORY/CHEST: Symmetric. Coarse to auscultation. Breath sounds equal bilaterally. Intubated on mechanical ventilation. GASTROINTESTINAL: Abdomen soft,nondistended. Bowel sounds present. Ongoing tube feeding. GENITOURINARY: Without palpable bladder distension. Abreu catheter in place. NEUROLOGICAL: Sedated. Unresponsive to tactile or verbal stimuli. Not following any commands. . Diagnostic Tests Laboratory Laboratory Tests Test 10/04/16 10/05/16 10/05/16 10/06/16 11:53 03:30 05:00 05:45 Blood Gas Puncture Site RT RADIAL RT RADIAL LT RADIAL Blood Gas Patient Temperature 98.6 98.6 98.6 Blood Gas HCO3 27 mmol/L 29 mmol/L 31 mmol/L (22-26) (22-26) (22-26) Blood Gas Base Excess 1.3 mmol/L 4.6 mmol/L 7.1 mmol/L (-2-2) (-2-2) (-2-2) Blood Gas Oxygen Saturation 95 % (90-100) 95 % (90-100) 94 % (90-100) Arterial Blood pH 7.31 7.42 7.45 (7.380-7.420) (7.380-7.420) (7.380-7.420) Arterial Blood Partial 55 mmHg (38-42) 45 mmHg (38-42) 45 mmHg (38-42) Pressure CO2 Arterial Blood Partial 101 mmHg 86 mmHg 79 mmHg Pressure O2 (61-120) (61-120) (61-120) Arterial Blood Oxygen Content 17.1 Vol % 20.6 Vol % 18.3 Vol % (12.0-20.0) (12.0-20.0) (12.0-20.0) Arterial Blood 1.0 % (0-4) 0.9 % (0-4) 1.1 % (0-4) Carboxyhemoglobin Arterial Blood Methemoglobin 1.2 % (0-2) 1.4 % (0-2) 1.1 % (0-2) Blood Gas Hemoglobin 12.7 G/DL 15.4 G/DL 13.8 G/DL (12.0-16.0) (12.0-16.0) (12.0-16.0) Oxygen Delivery Device VENTILATOR VENTILATOR VENTILATOR Blood Gas Ventilator Setting AC14,550, AC20/550/7PEEP AC 7PEEP 20/550/7PEEP Blood Gas Inspired Oxygen 40 % 50 % 60 % White Blood Count 7.4 TH/MM3 (4.0-11.0) Red Blood Count 4.31 MIL/MM3 (4.00-5.30) Hemoglobin 12.5 GM/DL (11.6-15.3) Hematocrit 38.2 % (35.0-46.0) Mean Corpuscular Volume 88.6 FL (80.0-100.0) Mean Corpuscular Hemoglobin 29.0 PG (27.0-34.0) Mean Corpuscular Hemoglobin 32.7 % Concent (32.0-36.0) Red Cell Distribution Width 16.6 % (11.6-17.2) Platelet Count 134 TH/MM3 (150-450) Mean Platelet Volume 10.3 FL (7.0-11.0) Neutrophils (%) (Auto) 87.7 % (16.0-70.0) Lymphocytes (%) (Auto) 5.4 % (9.0-44.0) Monocytes (%) (Auto) 6.8 % (0.0-8.0) Eosinophils (%) (Auto) 0.0 % (0.0-4.0) Basophils (%) (Auto) 0.1 % (0.0-2.0) Neutrophils # (Auto) 6.5 TH/MM3 (1.8-7.7) Lymphocytes # (Auto) 0.4 TH/MM3 (1.0-4.8) Monocytes # (Auto) 0.5 TH/MM3 (0-0.9) Eosinophils # (Auto) 0.0 TH/MM3 (0-0.4) Basophils # (Auto) 0.0 TH/MM3 (0-0.2) CBC Comment AUTO DIFF Differential Comment AUTO DIFF CONFIRMED Platelet Estimate LOW (NORMAL) Platelet Morphology Comment NORMAL (NORMAL) Sodium Level 150 MEQ/L (136-145) Potassium Level 5.1 MEQ/L (3.5-5.1) Chloride Level 112 MEQ/L (98-107) Carbon Dioxide Level 31.5 MEQ/L (21.0-32.0) Anion Gap 7 MEQ/L (5-15) Blood Urea Nitrogen 35 MG/DL (7-18) Creatinine 0.67 MG/DL (0.50-1.00) Estimat Glomerular Filtration 87 ML/MIN (>89) Rate Random Glucose 192 MG/DL (74-106) Calcium Level 8.1 MG/DL (8.5-10.1) Phosphorus Level 3.0 MG/DL (2.5-4.9) Magnesium Level 2.9 MG/DL (1.5-2.5) Total Bilirubin 0.5 MG/DL (0.2-1.0) Aspartate Amino Transf 85 U/L (15-37) (AST/SGOT) Alanine Aminotransferase 179 U/L (10-53) (ALT/SGPT) Alkaline Phosphatase 132 U/L (45-117) Total Protein 5.9 GM/DL (6.4-8.2) Albumin 2.5 GM/DL (3.4-5.0) Test 10/06/16 10/07/16 06:00 07:42 White Blood Count 8.3 TH/MM3 (4.0-11.0) Red Blood Count 4.11 MIL/MM3 (4.00-5.30) Hemoglobin 11.8 GM/DL (11.6-15.3) Hematocrit 36.2 % (35.0-46.0) Mean Corpuscular Volume 88.1 FL (80.0-100.0) Mean Corpuscular Hemoglobin 28.6 PG (27.0-34.0) Mean Corpuscular Hemoglobin 32.5 % Concent (32.0-36.0) Red Cell Distribution Width 16.4 % (11.6-17.2) Platelet Count 129 TH/MM3 (150-450) Mean Platelet Volume 10.2 FL (7.0-11.0) Neutrophils (%) (Auto) 80.5 % (16.0-70.0) Lymphocytes (%) (Auto) 9.6 % (9.0-44.0) Monocytes (%) (Auto) 9.8 % (0.0-8.0) Eosinophils (%) (Auto) 0.0 % (0.0-4.0) Basophils (%) (Auto) 0.1 % (0.0-2.0) Neutrophils # (Auto) 6.6 TH/MM3 (1.8-7.7) Lymphocytes # (Auto) 0.8 TH/MM3 (1.0-4.8) Monocytes # (Auto) 0.8 TH/MM3 (0-0.9) Eosinophils # (Auto) 0.0 TH/MM3 (0-0.4) Basophils # (Auto) 0.0 TH/MM3 (0-0.2) CBC Comment AUTO DIFF Differential Total Cells 100 Counted Neutrophils % (Manual) 78 % (16-70) Band Neutrophils % 8 % (0-6) Lymphocytes % 8 % (9-44) Monocytes % 5 % (0-8) Neutrophils # (Manual) 7.2 TH/MM3 (1.8-7.7) Myelocytes 1 % (0-0) Differential Comment FINAL DIFF MANUAL Platelet Estimate LOW (NORMAL) Platelet Morphology Comment NORMAL (NORMAL) Sodium Level 149 MEQ/L 145 MEQ/L (136-145) (136-145) Potassium Level 4.8 MEQ/L 5.0 MEQ/L (3.5-5.1) (3.5-5.1) Chloride Level 110 MEQ/L 106 MEQ/L (98-107) (98-107) Carbon Dioxide Level 33.6 MEQ/L 33.2 MEQ/L (21.0-32.0) (21.0-32.0) Anion Gap 5 MEQ/L (5-15) 6 MEQ/L (5-15) Blood Urea Nitrogen 40 MG/DL (7-18) 37 MG/DL (7-18) Creatinine 0.52 MG/DL 0.51 MG/DL (0.50-1.00) (0.50-1.00) Estimat Glomerular Filtration 116 ML/MIN 119 ML/MIN Rate (>89) (>89) Random Glucose 108 MG/DL 143 MG/DL (74-106) (74-106) Calcium Level 7.8 MG/DL 8.1 MG/DL (8.5-10.1) (8.5-10.1) Phosphorus Level 2.8 MG/DL (2.5-4.9) Magnesium Level 2.6 MG/DL (1.5-2.5) Total Bilirubin 0.5 MG/DL (0.2-1.0) Aspartate Amino Transf 90 U/L (15-37) (AST/SGOT) Alanine Aminotransferase 191 U/L (10-53) (ALT/SGPT) Alkaline Phosphatase 106 U/L (45-117) Total Protein 5.2 GM/DL (6.4-8.2) Albumin 2.2 GM/DL (3.4-5.0) Result Diagram: 10/06/16 0600 10/07/16 0742 Procedures * 09/30/16 -intubation * 09/30/16 -right IJ central line placement . Assessment and Plan Disease Oriented Problem List: (1) Acute hypoxemic respiratory failure (2) COPD with exacerbation (3) Hypertension Symptom Scale: (1) Shortness of breath 0-10 Scale: Unable to quantify Comment: Secondary to COPD exacerbation, acute hypoxemic respiratory failure. Remains on mechanical ventilation. (2) Anxiety 0-10 Scale: Unable to quantify Comment: History of anxiety. Currently sedated. (3) Debility 0-10 Scale: Unable to quantify Comment: Secondary to hospitalization, bedbound state. 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 Spiritual: [employer]. Legal: As per , living will completed. However able, unable to locate at home. Pending copy. Ethical issues impacting care: No ethical issues have been identified. . Important Contacts Patient's Oni Sandoval [phone]. Daughter Romy [phone]. . Prognosis Mrs. Sandoval is a 70-year-old female with a medical history of COPD -O2 dependent , anxiety and hypertension who presented to ED on 09/30/16 via EMS secondary to respiratory distress. Patient intubated, on mechanical ventilation secondary to acute hypoxemic respiratory failure. Patient's overall prognosis is poor given her age, multiple comorbidities, and acute events. Family declining cardiac code, tracheostomy and PEG placement and are electing to transition patient to comfort directed care given her poor prognosis for an improved quality of life. Pending family members to arrive within the next 48 hours. . Code Status: No Code Plan * CODE STATUS: No code. Patient currently intubated. However, family electing no code/do not reintubated if patient extubate. * MEDICAL-DECISION MAKING: Patient incapacitated secondary to clinical condition. As per [place] statute, medical decision making proxy falls to patient's . * GOALS OF CARE: Family electing for no code/do not reintubate if patient extubate. No tracheostomy or PEG tube placement. Family electing to transition patient to comfort -directed care if clinical condition remains unchanged -tentative withdrawal life support for early next week. at bedside. Medical update provided. Plan remains to await for additional family members to visit over the weekend. Tentative withdrawal of life support on 10/10/16. Reviewed with possibility of CPAP trials over this weekend if vent settings allowed. Review difference between medical extubation versus withdrawal life support. In the event that patient is able to medically extubate over this weekend, family electing not to reintubate and to transition pt to comfort-directed care with hospice services. Family understand that medical extubation is not likely to occur secondary to clinical condition. * Exhibit C has been sign in the event family elects to transition patient to comfort-directed care over the weekend. Same placed in chart. * SYMPTOMS: == Shortness of breath, secondary to COPD exacerbation and current acute hypoxemic respiratory failure. Remains intubated on mechanical ventilation. Not tolerating CPAP trials. Family electing NO TRACH. == Debility , secondary to acute events and hospitalization. == Anxiety, chronic. Taking Xanax at home. Patient currently sedated with propofol and fentanyl drip. Appears calm. * Anticipatory guidance regarding withdrawal life support/allow natural provided to . * Case discussed with Dr. Tomas and bedside RN. * Ongoing emotional support and active listening provided. * Care contact information has been provided to patient's brother and . * Palliative care will continue to follow-up for further clarifications of goals of care as the clinical course evolves. . Time Spent Total Floor Time (mins): 40 (Total time to include review of medical records, physical exam, bedside conversation with and case discussion with Dr. Tomas and bedside RN.) >50% Counseling/Coord of Care: Yes Attestation To help prompt me to consider important information that might be impacting today's encounter and assessment, information from prior notes written by myself or my colleagues may have been "brought forward" into today's note. My signature on this note, however, is an attestation that I personally performed the exam, history, and/or decision-making noted today, and, unless otherwise indicated, the interactions with patient, family, and staff as well as the review of records all occurred today. I also attest that the listed assessment and stated plan reflect my best clinical judgment today based on the combination of historical information, prior notes, and today's exam/ interactions. When time spent is documented, it refers only to time spent today by the signer, or if indicated, combined time spent today by collaborating physician/nurse practitioner. Kateryna Moyer Oct 07, 2016 11:34
[2016-10-07 12:11] LABS: HEMATOCRIT 43.2 % (35.0-46.0); MEAN CELL VOLUME 88.2 FL (80.0-100.0); MEAN CORPUSCULAR HEMOGLOBIN 28.4 PG (27.0-34.0); MEAN CORPUSCULAR HGB CONC 32.2 % (32.0-36.0); PLATELET COUNT 165 TH/MM3 (150-450); RED CELL DISTRIBUTION WIDTH 16.4 % (11.6-17.2); REVIEW FLAG FINAL; WHITE BLOOD COUNT 14.7 TH/MM3 (4.0-11.0)
--- NOTE | 2016-10-07 15:28 | HHI.CCPN ---
Subjective Remarks/Hospital Course Patient is a 78-year-old white female with past medical history significant for COPD on 2L home O2, HTN, anxiety who was brought in [place] ER by [facility] for respiratory distress. Apparently patient had been increasingly short of breath for 1 day and used her nebulizer treatments without relief. Patient's oxygen saturation was 69% on 2 LNC on [facility] arrival and was given duonebsx3 and methylprednisolone 125mg IV. In the emergency department patient was very tachypneic hypoxic and was immediately placed on BIPAP. Patient remained tachypneic in respiratory distress on BiPAP and was intubated and placed on mechanical ventilation I evaluated the patient in the ED. Patient is asynchronous and tachypneic on the ventilator, agitated on sedation. I have requested neuromuscular paralysis 50 mg rocuronium 1. ABG shows pH 7.25 PCO2 of 56 and PO2 481. Patient will be treated with IV Solu-Medrol and DuoNeb scheduled breathing treatments and empiric Levaquin will be added for COPD exacerbation. Patient has mild troponin elevation no acute EKG changes. This is most likely from severe COPD exacerbation and severe hypoxemia. 3/4: The patient continues to have ventilator dyssynchrony, sedation increased. Plan for CPAP trials this afternoon. 10/02:The patient continues on Heparin infusion, echo performed awaiting results.CPAP trials attempted this am, unsuccessful. Elevation noted in WBC, possibly secondary to steroids continues on Levaquin, will change to Zosyn to expand coverage with noted pulmonary opacities on CXR. 10/03 no acute issues 10/04 still respiratory acidosis, slightly improving 10/05 severe respiratory distress while off sedation, bronchospasm, hypoxemia 10/06 Remains intubated, occasionally difficult to oxygenate due to bronchospasm, ready to wean 10/07 will attempt to CPAP trial today Objective Vital Signs Date Time Temp Pulse Resp B/P Pulse Ox O2 Delivery O2 Flow Rate FiO2 10/07/16 15:08 90 60 10/07/16 14:00 107 10/07/16 12:00 100.0 20 135/75 Intake and Output 10/06/16 10/06/16 10/07/16 08:00 16:00 00:00 Intake Total 888 ml 871 ml 923 ml Output Total 352 ml 1450 ml 550 ml Balance 536 ml -579 ml 373 ml Result Diagram: 10/07/16 0742 10/07/16 0742 Imaging Chest x-ray no acute findings Objective Remarks GENERAL: 70yo F who is intubated sedated with propofol fentanyl, breathing about the vent a synchronous agitated SKIN: Warm and dry. HEAD: Atraumatic. Normocephalic. ENT: Orotracheally intubated NECK: Trachea midline. No JVD. CARDIOVASCULAR: Tachycardic in the 110s. No murmurs RESPIRATORY: Air entry equal bilaterally, severe bilateral expiratory wheezing. GASTROINTESTINAL: Abdomen soft, non-tender, nondistended. Well-healed previous surgical scar MUSCULOSKELETAL: No obvious deformities. No clubbing. No cyanosis. No edema. NEUROLOGICAL: Intubated sedated. Moving all extremities not following commands Date of Insertion: Sep 30, 2016 A/P Assessment and Plan NEURO: - Continue Sedation vacation as respiratory allows - off Midazolam infusion - Continue Fentanyl and Propofol infusion -Continue to use Versed boluses PRN for ventilator synchrony RESP: Acute hypoxemic respiratory failure Acute COPD exacerbation Chronic COPD on 2 L home oxygen - Emergently intubated and placed on mechanical ventilation ACV 14/550/7 titrate FiO2 to keep saturation about 90% - Closely monitored avoid entrapping because of significant wheezing - Increased Solu-Medrol 60 mg IV every 6 hours - not ready to start taper - DuoNeb every 2 hours scheduled now - Still while Off sedation patient goes to bronchospasm with air trapping precluding weaning trials CV: Hypotension due to sedation Tachycardia/SIRS Troponin elevation, from severe hypoxemia and COPD exacerbation NSTEMI - Normal saline IV at KVO - Lactic acid is normal, hypotension most likely sedation induced - Mild troponin elevation most likely secondary to severe hypoxemia, stress induced - F/U 2-D echo start aspirin, low-dose Coreg-Continue Heparin - Dr. Glynn , Cardiology input appreciated. Troponins resulted 2.14->3.47 ->2.14 - Restart Benzapril - watch for hyperkalemia - Hold simvastatin due to elevated LFTs GI: - Continue tube feeds Jevity 1.5 , goal rate 55cc/hr - IV Protonix, Colace for bowel regimen : -Monitor renal function closely. Abreu catheter. ID: - Check sputum culture, blood culture - Empiric Levaquin 750 mg day 2,( dc'd ) , expanded coverage Zosyn q 6hr, for COPD exacerbation HEME: -Monitor CBC, CMP, coags -Continue heparin infusion, CT PE imaging studies negative ENDO: Mild hyperglycemia most likely stress induced - Sliding-scale insulin - Electrolyte replacement per protocol PROPH: Bilateral lower extremity SCDs. Lovenox for DVT prophylaxis. Protonix for GI prophylaxis LINES: -Utilize peripheral IVs, central line if needed Critical Care: Level III Dhruv Tomas MD Oct 07, 2016 15:28
[2016-10-07] MEDS: fentaNYL DRIP 250 ML IV SCH (17:47)
[2016-10-07] MEDS: CHLORHEXIDINE GLUCONATE 2 % 1 PACK (2 CLOTHS) TOP SCH (20:22)
[2016-10-08] VITALS (17 sets, daily range): BP systolic 126–150; BP diastolic 75–87; PULSE 99–116; RESP 20; TEMP 98.9–100; O2SAT 90–96
--- NOTE | 2016-10-08 03:31 | RADRPT ---
EXAM DATE/TIME: 10/08/2016 02:28 [facility] COMPARISON: CHEST SINGLE AP, October 06, 2016, 5:26. INDICATIONS : Shortness of breath, possible pulmonary disease MEDICAL HISTORY : Chronic obstructive pulmonary disease. SURGICAL HISTORY : None. ENCOUNTER: Subsequent ACUITY: 1 week PAIN SCORE: Non-responsive. LOCATION: Bilateral chest FINDINGS: Endotracheal tube tip well above the chris. A gastric tube traverses the [id number]. Right subc lavian catheter tip projects over the distal superior vena cava. Patchy infiltrates in the lower latosha gs and left lower lung consolidation, stable from prior. The heart is normal size. CONCLUSION: Persistent lower lobe infiltrates. Lines and tubes stable. Kiran Paredes MD on October 08, 2016 at 3:23 Board Certified Radiologist. This report was verified electronically.
[2016-10-08] MEDS: RESP: ALBUTEROL 2.5 MG/IPRATROPIUM 0.5 MG NEB (SCH) NEB ×6 (03:35→23:49)
[2016-10-08] MEDS: methylPREDNISolone SOD SUCC 125 MG/2 ML VIAL IV PUSH SCH ×4 (04:27→23:29)
[2016-10-08] MEDS: PIPERACIL-TAZO 3.375 GM PREMIX 50 ML IV SCH ×4 (04:28→22:04)
[2016-10-08] MEDS: INSULIN ASPART SUPPLEMENTAL SCALE SQ SCH ×4 (05:29→20:31)
[2016-10-08 05:35] LABS: BLOOD GAS BASE EXCESS 7.3 mmol/L (-2-2); BLOOD GAS CARBOXYHEMOGLOBIN 0.5 % (0-4); BLOOD GAS HCO3 31 mmol/L (22-26); BLOOD GAS METHEMOGLOBIN 0.4 % (0-2); BLOOD GAS O2 HGB SATURATION 97 % (90-100); BLOOD GAS OXYGEN CONTENT 19.7 Vol % (12.0-20.0); BLOOD GAS PCO2 42 mmHg (38-42); BLOOD GAS PO2 94 mmHG (61-120); BLOOD GAS TOTAL HGB 14.4 G/DL (12.0-16.0); CRITICAL VALUE NO; DRAW SITE LT RADIAL; FIO2 80 %; NUMBER OF ARTERIAL PUNCTURES 1; OXYGEN DEVICE VENTILATOR; STAT NO; TEMP CORR TO 98.6; ULNAR PULSE PRESENT; VENT SETTINGS AC/20/550/PEEP 7
[2016-10-08 07:33] LABS: BASOPHIL % 0.2 % (0.0-2.0); HEMATOCRIT 41.5 % (35.0-46.0); LYMPH % 4.6 % (9.0-44.0); LYMPHOCYTE # 0.6 TH/MM3 (1.0-4.8); MEAN CELL VOLUME 86.8 FL (80.0-100.0); MEAN CORPUSCULAR HEMOGLOBIN 28.4 PG (27.0-34.0); MEAN CORPUSCULAR HGB CONC 32.7 % (32.0-36.0); MONO % 8.5 % (0.0-8.0); NEUT % 86.7 % (16.0-70.0); PLATELET COUNT 158 TH/MM3 (150-450); RED BLOOD COUNT 4.78 MIL/MM3 (4.00-5.30); RED CELL DISTRIBUTION WIDTH 15.6 % (11.6-17.2); WHITE BLOOD COUNT 12.7 TH/MM3 (4.0-11.0)
[2016-10-08 07:52] LABS: ALKALINE PHOSPHATASE 114 U/L (45-117); ALT (GPT) 222 U/L (10-53); ANION GAP 7 MEQ/L (5-15); AST (GOT) 64 U/L (15-37); BICARBONATE 34.3 MEQ/L (21.0-32.0); BLOOD UREA NITROGEN 42 MG/DL (7-18); CHLORIDE 103 MEQ/L (98-107); GLOMERULAR FILTRATION RATE 95 ML/MIN (>89); MAGNESIUM 2.5 MG/DL (1.5-2.5); POTASSIUM 4.7 MEQ/L (3.5-5.1); SODIUM (NA) 144 MEQ/L (136-145); TOTAL BILIRUBIN ADULT 0.5 MG/DL (0.2-1.0)
[2016-10-08 07:57] LABS: HEMO FLAGS AUTO DIFF
[2016-10-08] MEDS: BUDESONIDE-FORMOTEROL 160/4.5 MCG INHALER INH SCH ×2 (08:00→20:56)
[2016-10-08] MEDS: BENEPROTEIN POWDER 1 PACK G-TUBE SCH ×3 (08:43→18:00)
[2016-10-08] MEDS: PANTOPRAZOLE SODIUM 40 MG VIAL IV SCH (08:43)
[2016-10-08] MEDS: ASPIRIN 81 MG CHEW TAB TUBE SCH (08:43)
[2016-10-08] MEDS: PRAVASTATIN SOD 40 MG TAB PO SCH (08:43)
[2016-10-08] MEDS: ACETAMINOPHEN 325 MG TAB PO PRN ×2 (08:43→15:33)
[2016-10-08] MEDS: ENALAPRIL MALEATE 2.5 MG TAB PO SCH ×2 (08:43→20:30)
[2016-10-08] MEDS: CARVEDILOL 3.125 MG TAB PO SCH ×2 (08:43→20:30)
[2016-10-08] MEDS: CHLORHEXIDINE 0.12% (ORAL KIT) 15 ML CUP MT SCH ×2 (08:44→20:32)
[2016-10-08] MEDS: SODIUM CHLORIDE 0.9% FLUSH 5 ML FLUSH IVF SCH ×2 (08:45→20:32)
[2016-10-08 10:23] LABS: BANDS 2 % (0-6); METAMYELOCYTES 1 % (0-1); MYELOCYTES 2 % (0-0); NEUTROPHIL # MANUAL DIFF 11.9 TH/MM3 (1.8-7.7); POLYS (SEG NEUTROPHILS) 89 % (16-70); WBC DIFF SAMPLE 100
[2016-10-08 10:24] LABS: PLATELET ESTIMATE SMEAR NORMAL (NORMAL); PLATELET MORPHOLOGY NORMAL (NORMAL); SCAN/DIFF FINAL DIFF MANUAL
[2016-10-08] MEDS: PROPOFOL 1000 MG/100 ML INJ 100 ML IV SCH (10:28)
[2016-10-08] MEDS: fentaNYL DRIP 250 ML IV SCH ×2 (10:28→23:44)
--- NOTE | 2016-10-08 11:06 | HHI.CCPN ---
Subjective Remarks/Hospital Course Patient is a 78-year-old white female with past medical history significant for COPD on 2L home O2, HTN, anxiety who was brought in [place] [facility] by [facility] for respiratory distress. Apparently patient had been increasingly short of breath for 1 day and used her nebulizer treatments without relief. Patient's oxygen saturation was 69% on 2 LNC on [facility] arrival and was given duonebsx3 and methylprednisolone 125mg IV. In the emergency department patient was very tachypneic hypoxic and was immediately placed on BIPAP. Patient remained tachypneic in respiratory distress on BiPAP and was intubated and placed on mechanical ventilation I evaluated the patient in the ED. Patient is asynchronous and tachypneic on the ventilator, agitated on sedation. I have requested neuromuscular paralysis 50 mg rocuronium 1. ABG shows pH 7.25 PCO2 of 56 and PO2 481. Patient will be treated with IV Solu-Medrol and DuoNeb scheduled breathing treatments and empiric Levaquin will be added for COPD exacerbation. Patient has mild troponin elevation no acute EKG changes. This is most likely from severe COPD exacerbation and severe hypoxemia. 3/4: The patient continues to have ventilator dyssynchrony, sedation increased. Plan for CPAP trials this afternoon. 10/02:The patient continues on Heparin infusion, echo performed awaiting results.CPAP trials attempted this am, unsuccessful. Elevation noted in WBC, possibly secondary to steroids continues on Levaquin, will change to Zosyn to expand coverage with noted pulmonary opacities on CXR. 10/03 no acute issues 10/04 still respiratory acidosis, slightly improving 10/05 severe respiratory distress while off sedation, bronchospasm, hypoxemia 10/06 Remains intubated, occasionally difficult to oxygenate due to bronchospasm, ready to wean 10/07 will attempt to CPAP trial today 10/08 required 80% FiO2 now, worsening course Objective Vital Signs Date Time Temp Pulse Resp B/P Pulse Ox O2 Delivery O2 Flow Rate FiO2 10/08/16 08:14 94 70 10/08/16 06:00 100 10/08/16 04:00 99.1 20 150/81 Intake and Output 10/07/16 10/07/16 10/08/16 08:00 16:00 00:00 Intake Total 1232 ml 909 ml 1220 ml Output Total 400 ml 500 ml 450 ml Balance 832 ml 409 ml 770 ml Result Diagram: 10/08/16 0600 10/08/16 0600 Other Results Laboratory Tests Test 10/08/16 05:22 Blood Gas Puncture Site LT RADIAL Blood Gas Patient Temperature 98.6 Blood Gas HCO3 31 mmol/L (22-26) Blood Gas Base Excess 7.3 mmol/L (-2-2) Blood Gas Oxygen Saturation 97 % (90-100) Arterial Blood pH 7.48 (7.380-7.420) Arterial Blood Partial 42 mmHg (38-42) Pressure CO2 Arterial Blood Partial 94 mmHG Pressure O2 (61-120) Arterial Blood Oxygen Content 19.7 Vol % (12.0-20.0) Arterial Blood 0.5 % (0-4) Carboxyhemoglobin Arterial Blood Methemoglobin 0.4 % (0-2) Blood Gas Hemoglobin 14.4 G/DL (12.0-16.0) Oxygen Delivery Device VENTILATOR Blood Gas Ventilator Setting AC/20/550/PEEP 7 Blood Gas Inspired Oxygen 80 % Imaging Chest x-ray no acute findings Objective Remarks GENERAL: 70yo F who is intubated sedated with propofol fentanyl, breathing about the vent a synchronous agitated SKIN: Warm and dry. HEAD: Atraumatic. Normocephalic. ENT: Orotracheally intubated NECK: Trachea midline. No JVD. CARDIOVASCULAR: Tachycardic in the 110s. No murmurs RESPIRATORY: Air entry equal bilaterally, severe bilateral expiratory wheezing. GASTROINTESTINAL: Abdomen soft, non-tender, nondistended. Well-healed previous surgical scar MUSCULOSKELETAL: No obvious deformities. No clubbing. No cyanosis. No edema. NEUROLOGICAL: Intubated sedated. Moving all extremities not following commands Date of Insertion: Sep 30, 2016 A/P Assessment and Plan NEURO: - No sedation vacation due to worsening respiratory status - off Midazolam infusion - Continue Fentanyl and Propofol infusion - Continue to use Versed boluses PRN for ventilator synchrony RESP: Acute hypoxemic respiratory failure Acute COPD exacerbation Chronic COPD on 2 L home oxygen - Emergently intubated and placed on mechanical ventilation ACV 14/550/7 titrate FiO2 to keep saturation about 90% - Closely monitored avoid entrapping because of significant wheezing - Increased Solu-Medrol 60 mg IV every 6 hours - not ready to start taper - DuoNeb every 2 hours scheduled now - Worsening oxygenation demand - Endstage lung disease due to chronic tobacco abuse, external Poor prognosis CV: Hypotension due to sedation Tachycardia/SIRS Troponin elevation, from severe hypoxemia and COPD exacerbation NSTEMI - Normal saline IV at KVO - Lactic acid is normal, hypotension most likely sedation induced - Mild troponin elevation most likely secondary to severe hypoxemia, stress induced - F/U 2-D echo start aspirin, low-dose Coreg-Continue Heparin - Dr. Glynn , Cardiology input appreciated. Troponins resulted 2.14->3.47 ->2.14 - Restart Benzapril - watch for hyperkalemia - Hold simvastatin due to elevated LFTs GI: - Continue tube feeds Jevity 1.5 , goal rate 55cc/hr - IV Protonix, Colace for bowel regimen : -Monitor renal function closely. Abreu catheter. ID: - Check sputum culture, blood culture - Empiric Levaquin 750 mg day 2,( dc'd ) , expanded coverage Zosyn q 6hr, for COPD exacerbation HEME: -Monitor CBC, CMP, coags -Continue heparin infusion, CT PE imaging studies negative ENDO: Mild hyperglycemia most likely stress induced - Sliding-scale insulin - Electrolyte replacement per protocol PROPH: Bilateral lower extremity SCDs. Lovenox for DVT prophylaxis. Protonix for GI prophylaxis LINES: -Utilize peripheral IVs, central line if needed Critical Care: Level III Dhruv Tomas MD Oct 08, 2016 11:06
[2016-10-08] MEDS: CHLORHEXIDINE GLUCONATE 2 % 1 PACK (2 CLOTHS) TOP SCH (20:31)
[2016-10-09] VITALS (16 sets, daily range): BP systolic 93–123; BP diastolic 64–78; PULSE 69–113; RESP 20–22; TEMP 97.9–98.9; O2SAT 92–96
[2016-10-09] MEDS: PROPOFOL 1000 MG/100 ML INJ 100 ML IV SCH ×2 (01:14→20:44)
[2016-10-09] MEDS: RESP: ALBUTEROL 2.5 MG/IPRATROPIUM 0.5 MG NEB (SCH) NEB ×6 (03:47→23:42)
[2016-10-09 04:05] LABS: AUTOMATED NEUTROPHIL # 12.5 TH/MM3 (1.8-7.7); BASOPHIL % 0.2 % (0.0-2.0); LYMPH % 3.7 % (9.0-44.0); LYMPHOCYTE # 0.5 TH/MM3 (1.0-4.8); MEAN CELL VOLUME 86.9 FL (80.0-100.0); MEAN CORPUSCULAR HEMOGLOBIN 28.6 PG (27.0-34.0); MEAN CORPUSCULAR HGB CONC 32.9 % (32.0-36.0); NEUT % 87.1 % (16.0-70.0); PLATELET COUNT 152 TH/MM3 (150-450); RED BLOOD COUNT 4.83 MIL/MM3 (4.00-5.30); WHITE BLOOD COUNT 14.3 TH/MM3 (4.0-11.0)
[2016-10-09 04:14] LABS: HEMO FLAGS AUTO DIFF
[2016-10-09 04:23] LABS: ALT (GPT) 211 U/L (10-53); ANION GAP 7 MEQ/L (5-15); AST (GOT) 56 U/L (15-37); BICARBONATE 31.4 MEQ/L (21.0-32.0); BLOOD UREA NITROGEN 37 MG/DL (7-18); CHLORIDE 105 MEQ/L (98-107); GLOMERULAR FILTRATION RATE 114 ML/MIN (>89); MAGNESIUM 2.4 MG/DL (1.5-2.5); POTASSIUM 4.8 MEQ/L (3.5-5.1); SODIUM (NA) 143 MEQ/L (136-145)
[2016-10-09 04:25] LABS: ALKALINE PHOSPHATASE 110 U/L (45-117); TOTAL BILIRUBIN ADULT 0.5 MG/DL (0.2-1.0)
[2016-10-09] MEDS: methylPREDNISolone SOD SUCC 125 MG/2 ML VIAL IV PUSH SCH ×4 (05:06→22:32)
[2016-10-09] MEDS: PIPERACIL-TAZO 3.375 GM PREMIX 50 ML IV SCH ×4 (05:06→21:00)
[2016-10-09 05:15] LABS: MYELOCYTES 1 % (0-0); NEUTROPHIL # MANUAL DIFF 12.7 TH/MM3 (1.8-7.7); PLATELET ESTIMATE SMEAR LOW (NORMAL); PLATELET MORPHOLOGY ENLARGED (NORMAL); POLYS (SEG NEUTROPHILS) 88 % (16-70); SCAN/DIFF FINAL DIFF MANUAL; WBC DIFF SAMPLE 100
[2016-10-09] MEDS: INSULIN ASPART SUPPLEMENTAL SCALE SQ SCH ×4 (06:41→20:51)
[2016-10-09] MEDS: BUDESONIDE-FORMOTEROL 160/4.5 MCG INHALER INH SCH ×2 (08:00→20:49)
[2016-10-09] MEDS: CHLORHEXIDINE 0.12% (ORAL KIT) 15 ML CUP MT SCH ×2 (08:00→20:44)
[2016-10-09] MEDS: SODIUM CHLORIDE 0.9% FLUSH 5 ML FLUSH IVF SCH ×2 (09:00→21:00)
[2016-10-09] MEDS: BENEPROTEIN POWDER 1 PACK G-TUBE SCH ×3 (09:00→18:00)
[2016-10-09] MEDS: ENALAPRIL MALEATE 2.5 MG TAB PO SCH ×2 (09:59→21:00)
[2016-10-09] MEDS: PRAVASTATIN SOD 40 MG TAB PO SCH (09:59)
[2016-10-09] MEDS: CARVEDILOL 3.125 MG TAB PO SCH ×2 (09:59→21:00)
[2016-10-09] MEDS: ASPIRIN 81 MG CHEW TAB TUBE SCH (09:59)
[2016-10-09] MEDS: PANTOPRAZOLE SODIUM 40 MG VIAL IV SCH (10:00)
--- NOTE | 2016-10-09 11:01 | HHI.CCPN ---
Subjective Remarks/Hospital Course Patient is a 78-year-old white female with past medical history significant for COPD on 2L home O2, HTN, anxiety who was brought in [place] ER by [facility] for respiratory distress. Apparently patient had been increasingly short of breath for 1 day and used her nebulizer treatments without relief. Patient's oxygen saturation was 69% on 2 LNC on [facility] arrival and was given duonebsx3 and methylprednisolone 125mg IV. In the emergency department patient was very tachypneic hypoxic and was immediately placed on BIPAP. Patient remained tachypneic in respiratory distress on BiPAP and was intubated and placed on mechanical ventilation I evaluated the patient in the ED. Patient is asynchronous and tachypneic on the ventilator, agitated on sedation. I have requested neuromuscular paralysis 50 mg rocuronium 1. ABG shows pH 7.25 PCO2 of 56 and PO2 481. Patient will be treated with IV Solu-Medrol and DuoNeb scheduled breathing treatments and empiric Levaquin will be added for COPD exacerbation. Patient has mild troponin elevation no acute EKG changes. This is most likely from severe COPD exacerbation and severe hypoxemia. 3/4: The patient continues to have ventilator dyssynchrony, sedation increased. Plan for CPAP trials this afternoon. 10/02:The patient continues on Heparin infusion, echo performed awaiting results.CPAP trials attempted this am, unsuccessful. Elevation noted in WBC, possibly secondary to steroids continues on Levaquin, will change to Zosyn to expand coverage with noted pulmonary opacities on CXR. 10/03 no acute issues 10/04 still respiratory acidosis, slightly improving 10/05 severe respiratory distress while off sedation, bronchospasm, hypoxemia 10/06 Remains intubated, occasionally difficult to oxygenate due to bronchospasm, ready to wean 10/07 will attempt to CPAP trial today 10/08 required 80% FiO2 now, worsening course 10/09 minimal improvement in oxygenation Objective Vital Signs Date Time Temp Pulse Resp B/P Pulse Ox O2 Delivery O2 Flow Rate FiO2 10/09/16 10:00 69 10/09/16 08:00 98.9 20 122/68 96 10/09/16 08:00 70 Intake and Output 10/08/16 10/08/16 10/09/16 08:00 16:00 00:00 Intake Total 660 ml 790 ml 628 ml Output Total 500 ml 625 ml 1000 ml Balance 160 ml 165 ml -372 ml Result Diagram: 10/09/166 10/09/16335 Imaging Chest x-ray no acute findings Objective Remarks GENERAL: 70yo F who is intubated sedated with propofol fentanyl, breathing about the vent a synchronous agitated SKIN: Warm and dry. HEAD: Atraumatic. Normocephalic. ENT: Orotracheally intubated NECK: Trachea midline. No JVD. CARDIOVASCULAR: Tachycardic in the 110s. No murmurs RESPIRATORY: Air entry equal bilaterally, severe bilateral expiratory wheezing. GASTROINTESTINAL: Abdomen soft, non-tender, nondistended. Well-healed previous surgical scar MUSCULOSKELETAL: No obvious deformities. No clubbing. No cyanosis. No edema. NEUROLOGICAL: Intubated sedated. Moving all extremities not following commands Date of Insertion: Sep 30, 2016 A/P Assessment and Plan NEURO: - No sedation vacation due to worsening respiratory status - No CPAP trials - off Midazolam infusion - Continue Fentanyl and Propofol infusion - Continue to use Versed boluses PRN for ventilator synchrony RESP: Acute hypoxemic respiratory failure Acute COPD exacerbation Chronic COPD on 2 L home oxygen - Emergently intubated and placed on mechanical ventilation ACV 14/550/7 titrate FiO2 to keep saturation about 90% - Closely monitored avoid entrapping because of significant wheezing - Increased Solu-Medrol 60 mg IV every 6 hours - not ready to start taper - DuoNeb every 2 hours scheduled now - Slightly improved oxygenation since yesterday - Endstage lung disease due to chronic tobacco abuse, extremely poor prognosis CV: Hypotension due to sedation Tachycardia/SIRS Troponin elevation, from severe hypoxemia and COPD exacerbation NSTEMI - Normal saline IV at KVO - Lactic acid is normal, hypotension most likely sedation induced - Mild troponin elevation most likely secondary to severe hypoxemia, stress induced - F/U 2-D echo start aspirin, low-dose Coreg-Continue Heparin - Dr. Glynn , Cardiology input appreciated. Troponins resulted 2.14->3.47 ->2.14 - Restart Benzapril - watch for hyperkalemia - Hold simvastatin due to elevated LFTs GI: - Continue tube feeds Jevity 1.5 , goal rate 55cc/hr - IV Protonix, Colace for bowel regimen : -Monitor renal function closely. Abreu catheter. ID: - Empiric Levaquin 750 mg day 2,( dc'd ) , - expanded coverage Zosyn q 6hr, for COPD exacerbation HEME: -Monitor CBC, CMP, coags -Continue heparin infusion, CT PE imaging studies negative ENDO: Mild hyperglycemia most likely stress induced - Sliding-scale insulin - Electrolyte replacement per protocol PROPH: Bilateral lower extremity SCDs. Lovenox for DVT prophylaxis. Protonix for GI prophylaxis LINES: -Utilize peripheral IVs, central line if needed Critical Care: Level III Patient's family considering comfort care only tomorrow. Palliative care input gladly appreciated Dhruv Tomas MD Oct 09, 2016 11:01
[2016-10-09] MEDS: fentaNYL DRIP 250 ML IV SCH (20:44)
[2016-10-10] VITALS (14 sets, daily range): BP systolic 77–137; BP diastolic 49–82; PULSE 72–108; RESP 12–22; TEMP 98–99.3; O2SAT 74–98
[2016-10-10] MEDS: RESP: ALBUTEROL 2.5 MG/IPRATROPIUM 0.5 MG NEB (SCH) NEB ×3 (03:42→11:46)
[2016-10-10] MEDS: CHLORHEXIDINE GLUCONATE 2 % 1 PACK (2 CLOTHS) TOP SCH (03:52)
[2016-10-10] MEDS: PIPERACIL-TAZO 3.375 GM PREMIX 50 ML IV SCH ×2 (03:55→10:39)
[2016-10-10] MEDS: methylPREDNISolone SOD SUCC 125 MG/2 ML VIAL IV PUSH SCH ×2 (03:55→10:39)
--- NOTE | 2016-10-10 04:17 | RADRPT ---
EXAM DATE/TIME: 10/10/2016 01:57 [facility] COMPARISON: CHEST SINGLE AP, October 08, 2016, 2:28. INDICATIONS : Shortness of breath, possible pulmonary disease. MEDICAL HISTORY : Chronic obstructive pulmonary disease. SURGICAL HISTORY : None. ENCOUNTER: Subsequent ACUITY: 1 week PAIN SCORE: Non-responsive. LOCATION: Bilateral chest FINDINGS: Single AP view of the chest. Endotracheal tube, nasogastric tube, and right subclavian central venous catheter remain in place. Persistent hazy opacity at the lung bases. Slight decrease in the opacity when compared to the prior study. No evidence of pneumothorax. Cardiomediastinal silhouette unchanged . CONCLUSION: Slight decrease in bilateral basilar pulmonary opacity. Aidan Capellan MD on October 10, 2016 at 4:14 Board Certified Radiologist. This report was verified electronically.
[2016-10-10 04:27] LABS: AUTOMATED NEUTROPHIL # 13.5 TH/MM3 (1.8-7.7); EOSINOPHIL # 0.2 TH/MM3 (0-0.4); EOSINOPHIL % 0.9 % (0.0-4.0); HEMATOCRIT 40.5 % (35.0-46.0); LYMPH % 11.3 % (9.0-44.0); MEAN CELL VOLUME 87.1 FL (80.0-100.0); MEAN CORPUSCULAR HEMOGLOBIN 28.8 PG (27.0-34.0); MONO % 9.3 % (0.0-8.0); NEUT % 78.5 % (16.0-70.0); PLATELET COUNT 133 TH/MM3 (150-450); RED BLOOD COUNT 4.65 MIL/MM3 (4.00-5.30); RED CELL DISTRIBUTION WIDTH 16.1 % (11.6-17.2); WHITE BLOOD COUNT 17.2 TH/MM3 (4.0-11.0)
[2016-10-10 04:32] LABS: HEMO FLAGS AUTO DIFF
[2016-10-10 04:50] LABS: ALT (GPT) 183 U/L (10-53); ANION GAP 7 MEQ/L (5-15); AST (GOT) 54 U/L (15-37); BICARBONATE 30.9 MEQ/L (21.0-32.0); BLOOD UREA NITROGEN 41 MG/DL (7-18); CHLORIDE 106 MEQ/L (98-107); GLOMERULAR FILTRATION RATE 116 ML/MIN (>89); MAGNESIUM 2.3 MG/DL (1.5-2.5); POTASSIUM 4.1 MEQ/L (3.5-5.1); SODIUM (NA) 144 MEQ/L (136-145)
[2016-10-10 04:53] LABS: ALKALINE PHOSPHATASE 113 U/L (45-117); TOTAL BILIRUBIN ADULT 0.6 MG/DL (0.2-1.0)
[2016-10-10] MEDS: INSULIN ASPART SUPPLEMENTAL SCALE SQ SCH ×2 (05:55→10:40)
[2016-10-10 06:16] LABS: BLOOD GAS BASE EXCESS 5.1 mmol/L (-2-2); BLOOD GAS HCO3 29 mmol/L (22-26); BLOOD GAS O2 HGB SATURATION 95 % (90-100); BLOOD GAS OXYGEN CONTENT 18.9 Vol % (12.0-20.0); BLOOD GAS PCO2 41 mmHg (38-42); BLOOD GAS PO2 95 mmHg (61-120); BLOOD GAS TOTAL HGB 14.1 G/DL (12.0-16.0); CRITICAL VALUE NO; OXYGEN DEVICE VENTILATOR; TEMP CORR TO 98.6
[2016-10-10 06:17] LABS: DRAW SITE RT RADIAL; FIO2 75 %; NUMBER OF ARTERIAL PUNCTURES 1; STAT NO; ULNAR PULSE PRESENT; VENT SETTINGS AC/20/550/PEEP8
[2016-10-10 06:58] LABS: BANDS 2 % (0-6); METAMYELOCYTES 2 % (0-1); NEUTROPHIL # MANUAL DIFF 15.1 TH/MM3 (1.8-7.7); PLATELET ESTIMATE SMEAR LOW (NORMAL); POLYS (SEG NEUTROPHILS) 84 % (16-70); WBC DIFF SAMPLE 100
[2016-10-10 07:01] LABS: PLATELET MORPHOLOGY NORMAL (NORMAL)
[2016-10-10 07:03] LABS: SCAN/DIFF FINAL DIFF MANUAL
[2016-10-10] MEDS: BUDESONIDE-FORMOTEROL 160/4.5 MCG INHALER INH SCH (07:41)
[2016-10-10] MEDS: CHLORHEXIDINE 0.12% (ORAL KIT) 15 ML CUP MT SCH (08:00)
[2016-10-10] MEDS: BENEPROTEIN POWDER 1 PACK G-TUBE SCH ×3 (09:00→16:22)
[2016-10-10] MEDS: ENALAPRIL MALEATE 2.5 MG TAB PO SCH (09:13)
[2016-10-10] MEDS: CARVEDILOL 3.125 MG TAB PO SCH (09:13)
[2016-10-10] MEDS: ASPIRIN 81 MG CHEW TAB TUBE SCH (09:13)
[2016-10-10] MEDS: PRAVASTATIN SOD 40 MG TAB PO SCH (09:13)
[2016-10-10] MEDS: PROPOFOL 1000 MG/100 ML INJ 100 ML IV SCH (09:14)
[2016-10-10] MEDS: PANTOPRAZOLE SODIUM 40 MG VIAL IV SCH (09:14)
[2016-10-10] MEDS: SODIUM CHLORIDE 0.9% FLUSH 5 ML FLUSH IVF PRN (09:14)
[2016-10-10] MEDS: SODIUM CHLORIDE 0.9% FLUSH 5 ML FLUSH IVF SCH ×2 (09:14→21:05)
[2016-10-10] MEDS: fentaNYL DRIP 250 ML IV SCH (11:40)
--- NOTE | 2016-10-10 12:33 | HHI.CCPN ---
Subjective Remarks/Hospital Course Patient is a 78-year-old white female with past medical history significant for COPD on 2L home O2, HTN, anxiety who was brought in [place] [facility] by [facility] for respiratory distress. Apparently patient had been increasingly short of breath for 1 day and used her nebulizer treatments without relief. Patient's oxygen saturation was 69% on 2 LNC on [facility] arrival and was given duonebsx3 and methylprednisolone 125mg IV. In the emergency department patient was very tachypneic hypoxic and was immediately placed on BIPAP. Patient remained tachypneic in respiratory distress on BiPAP and was intubated and placed on mechanical ventilation I evaluated the patient in the ED. Patient is asynchronous and tachypneic on the ventilator, agitated on sedation. I have requested neuromuscular paralysis 50 mg rocuronium 1. ABG shows pH 7.25 PCO2 of 56 and PO2 481. Patient will be treated with IV Solu-Medrol and DuoNeb scheduled breathing treatments and empiric Levaquin will be added for COPD exacerbation. Patient has mild troponin elevation no acute EKG changes. This is most likely from severe COPD exacerbation and severe hypoxemia. 3/4: The patient continues to have ventilator dyssynchrony, sedation increased. Plan for CPAP trials this afternoon. 10/02:The patient continues on Heparin infusion, echo performed awaiting results.CPAP trials attempted this am, unsuccessful. Elevation noted in WBC, possibly secondary to steroids continues on Levaquin, will change to Zosyn to expand coverage with noted pulmonary opacities on CXR. 10/03 no acute issues 10/04 still respiratory acidosis, slightly improving 10/05 severe respiratory distress while off sedation, bronchospasm, hypoxemia 10/06 Remains intubated, occasionally difficult to oxygenate due to bronchospasm, ready to wean 10/07 will attempt to CPAP trial today 10/08 required 80% FiO2 now, worsening course 10/09 minimal improvement in oxygenation 10/10 No change in status overnight, the patient continues to have high O2 requirements. Plan today for comfort care measures per family request with palliative team. Objective Vital Signs Date Time Temp Pulse Resp B/P Pulse Ox O2 Delivery O2 Flow Rate FiO2 10/10/16 11:47 93 65 10/10/16 10:00 104 10/10/16 08:00 99.2 22 137/80 Intake and Output 10/09/16 10/09/16 10/10/16 08:00 16:00 00:00 Intake Total 515 ml 820 ml Output Total 800 ml 300 ml Balance -285 ml 520 ml Result Diagram: 10/10/16 0400 10/10/16 0400 Other Results Laboratory Tests Test 10/10/16 05:57 Blood Gas Puncture Site RT RADIAL Blood Gas Patient Temperature 98.6 Blood Gas HCO3 29 mmol/L (22-26) Blood Gas Base Excess 5.1 mmol/L (-2-2) Blood Gas Oxygen Saturation 95 % (90-100) Arterial Blood pH 7.46 (7.380-7.420) Arterial Blood Partial 41 mmHg (38-42) Pressure CO2 Arterial Blood Partial 95 mmHg Pressure O2 (61-120) Arterial Blood Oxygen Content 18.9 Vol % (12.0-20.0) Arterial Blood 1.0 % (0-4) Carboxyhemoglobin Arterial Blood Methemoglobin 1.0 % (0-2) Blood Gas Hemoglobin 14.1 G/DL (12.0-16.0) Oxygen Delivery Device VENTILATOR Blood Gas Ventilator Setting AC/20/550/PEEP8 Blood Gas Inspired Oxygen 75 % Imaging Chest x-ray no acute findings Objective Remarks GENERAL: 70yo F who is intubated sedated with propofol fentanyl, GCS 32 SKIN: Warm and dry. HEAD: Atraumatic. Normocephalic. ENT: Orotracheally intubated NECK: Trachea midline. No JVD. CARDIOVASCULAR: Regular rate and rhythm. No murmurs RESPIRATORY: Air entry equal bilaterally, coarse breath sounds bilaterally GASTROINTESTINAL: Abdomen soft, non-tender, nondistended. Well-healed previous surgical scar MUSCULOSKELETAL: No obvious deformities. No clubbing. No cyanosis. No edema. NEUROLOGICAL: Intubated sedated. Moving all extremities not following commands Urinary Catheter: Yes Assessment to: Continue Date of Insertion: Sep 30, 2016 A/P Assessment and Plan NEURO: - No sedation vacation due to worsening respiratory status - No CPAP trials - Continue Fentanyl and Propofol infusion - Continue to use Versed boluses PRN for ventilator synchrony RESP: Acute hypoxemic respiratory failure Acute COPD exacerbation Chronic COPD on 2 L home oxygen - Emergently intubated and placed on mechanical ventilation ACV 14/550/7 titrate FiO2 to keep saturation about 90%, upon admission - Closely monitored avoid entrapping because of significant wheezing - Solu-Medrol 60 mg IV every 6 hours - DuoNeb every 2 hours scheduled now - Slightly improved oxygenation since yesterday - Endstage lung disease due to chronic tobacco abuse, extremely poor prognosis CV: Hypotension due to sedation Tachycardia/SIRS Troponin elevation, from severe hypoxemia and COPD exacerbation NSTEMI - Normal saline IV at KVO - Lactic acid is normal, hypotension most likely sedation induced - Mild troponin elevation most likely secondary to severe hypoxemia, stress induced - F/U 2-D echo start aspirin, low-dose Coreg-Continue Heparin - Dr. Glynn , Cardiology Troponins resulted 2.14->3.47->2.14 - Restart Benzapril - watch for hyperkalemia - Simvastatin on hold GI: - Continue tube feeds Jevity 1.5 , goal rate 55cc/hr - IV Protonix, Colace for bowel regimen : -Monitor renal function closely. Abreu catheter. ID: - Empiric Levaquin 750 mg day 2,( dc'd ) , - Zosyn q 6hr, for COPD exacerbation HEME: -Monitor CBC, CMP, coags -Continue heparin infusion, CT PE imaging studies negative ENDO: Mild hyperglycemia most likely stress induced - Sliding-scale insulin - Electrolyte replacement per protocol PROPH: Bilateral lower extremity SCDs. Lovenox for DVT prophylaxis. Protonix for GI prophylaxis LINES: -Utilize peripheral IVs, central line if needed Critical Care: Level 3 Palliative care consult on 10/09/2016. Plan for comfort care measures today per family request. Physician Kalli Martinez MD Oct 10, 2016 12:33 Kalli Mosher MD Oct 10, 2016 12:33
--- NOTE | 2016-10-10 12:55 | HHI.HCPN ---
Reason for visit a. To assist with evaluation and management of symptoms including: Debility and shortness of breath. b. To assist medical decision maker(s) with: better understanding of current medical conditions; weighing benefits/burdens of medical treatment options; making medical treatment decisions. . Subjective/Interval History Patient seen in ICU. She remains in critical condition, intubated, sedated on mechanical ventilation. Currently vented at 65% FiO2. Worsening respiratory condition over the weekend requiring increased FiO2 up to 80%. Unable to complete CPAP trials. A febrile, tachycardic with heart rates in the 110s. Stable blood pressure. Patient remains sedated on fentanyl and propofol drip, she appears calm. Patient unresponsive to verbal or tactile stimuli. Laboratory today including WBC 17.2, Hgb 13.4, platelet count 133. Sodium 144, potassium 4.1, BUN/creatinine 45/0.52. Chest x-ray today showing slight decrease in bilateral basilar pulmonary opacity. . Family/friend interactions Patient's and daughter at bedside. Family tells me that family is ready to transition patient to comfort-directed care/withdrawal life support given patient's poor prognosis and known wishes. Family has had a chance to visit over this past weekend. All questions have been answered great detail. Discussed case with Dr. Davis from palliative care and Andrew -spiritual services for ongoing emotional support and active listening. Anticipatory guidance provided. . Advance Directives Living Will: Completed, but not made available Health Care Surrogate: Never completed Durable Power of Hazmat Cdl Driver: Never completed Advance Directive Specifics Date completed: Has been unable to locate at home. Health Care Surrogate(s): As per [place] statute, healthcare proxy decision-making falls to patient's . . Documented care wishes: Living well not available at this time. unable to locate at home. . Significant change in goals: No code. DNR/DNI. Transition to comfort directed care/withdrawal life support given patient's poor prognosis and known wishes. . Objective Vital Signs Date Time Temp Pulse Resp B/P Pulse Ox O2 Delivery O2 Flow Rate FiO2 10/10/16 11:47 93 65 10/10/16 10:00 104 10/10/16 08:00 99.2 104 22 137/80 93 10/10/16 08:00 104 10/10/16 08:00 65 10/10/16 07:43 95 65 10/10/16 04:00 75 10/10/16 04:00 98.1 103 20 120/73 96 10/10/16 03:43 95 75 10/10/16 00:00 75 10/10/16 00:00 98.0 108 20 124/82 94 10/09/16 23:44 93 75 10/09/16 20:55 93 75 10/09/16 20:00 70 10/09/16 20:00 98.2 110 20 103/69 94 10/09/16 16:09 92 70 10/09/16 14:00 69 Intake & Output 10/10/16 10/10/16 07:00 19:00 Intake Total 1485 ml Output Total 800 ml Balance 685 ml Intake Oral 0 ml IV Total 665 ml Tube Feeding 700 ml Other 120 ml Output Urine Total 800 ml # Bowel Movements 0 Physical Exam CONSTITUTIONAL/GENERAL: This is an elderly female in no acute distress. Sedated , intubated on mechanical ventilation. TUBES/LINES/DRAINS: Right IJ central line, ET tube, OG tube, Abreu catheter, SCDs. SKIN: No jaundice, rashes, or lesions. Scatter ecchymoses on upper extremities. No wounds seen anteriorly. HEAD: Atraumatic. Normocephalic. EYES: Pupils equal and round and reactive. No injection or drainage. Fundi not examined. ENT: Unable to evaluate hearing secondary to clinical condition. Nose without bleeding or purulent drainage. Unable to assess throat or oral cavity secondary to ET tube. NECK: Trachea midline. Supple. CARDIOVASCULAR: Tachycardic with heart rate in the low 110s. Regular rate and rhythm. Peripheral pulses symmetric. Bilaterally +1 edema to upper extremities. Mild cyanosis to bilateral hands/fingers. RESPIRATORY/CHEST: Symmetric. Coarse to auscultation. Breath sounds equal bilaterally. Intubated on mechanical ventilation. GASTROINTESTINAL: Abdomen soft,nondistended. Bowel sounds present. Ongoing tube feeding. GENITOURINARY: Without palpable bladder distension. Abreu catheter in place. NEUROLOGICAL: Sedated. Unresponsive to tactile or verbal stimuli. Not following any commands. . Diagnostic Tests Laboratory Laboratory Tests Test 10/08/16 10/08/16 10/09/16 10/10/16 05:22 06:00 03:36 04:00 Blood Gas Puncture Site LT RADIAL Blood Gas Patient Temperature 98.6 Blood Gas HCO3 31 mmol/L (22-26) Blood Gas Base Excess 7.3 mmol/L (-2-2) Blood Gas Oxygen Saturation 97 % (90-100) Arterial Blood pH 7.48 (7.380-7.420) Arterial Blood Partial 42 mmHg (38-42) Pressure CO2 Arterial Blood Partial 94 mmHG Pressure O2 (61-120) Arterial Blood Oxygen Content 19.7 Vol % (12.0-20.0) Arterial Blood 0.5 % (0-4) Carboxyhemoglobin Arterial Blood Methemoglobin 0.4 % (0-2) Blood Gas Hemoglobin 14.4 G/DL (12.0-16.0) Oxygen Delivery Device VENTILATOR Blood Gas Ventilator Setting AC/20/550/PEEP 7 Blood Gas Inspired Oxygen 80 % White Blood Count 12.7 TH/MM3 14.3 TH/MM3 17.2 TH/MM3 (4.0-11.0) (4.0-11.0) (4.0-11.0) Red Blood Count 4.78 MIL/MM3 4.83 MIL/MM3 4.65 MIL/MM3 (4.00-5.30) (4.00-5.30) (4.00-5.30) Hemoglobin 13.6 GM/DL 13.8 GM/DL 13.4 GM/DL (11.6-15.3) (11.6-15.3) (11.6-15.3) Hematocrit 41.5 % 42.0 % 40.5 % (35.0-46.0) (35.0-46.0) (35.0-46.0) Mean Corpuscular Volume 86.8 FL 86.9 FL 87.1 FL (80.0-100.0) (80.0-100.0) (80.0-100.0) Mean Corpuscular Hemoglobin 28.4 PG 28.6 PG 28.8 PG (27.0-34.0) (27.0-34.0) (27.0-34.0) Mean Corpuscular Hemoglobin 32.7 % 32.9 % 33.0 % Concent (32.0-36.0) (32.0-36.0) (32.0-36.0) Red Cell Distribution Width 15.6 % 16.0 % 16.1 % (11.6-17.2) (11.6-17.2) (11.6-17.2) Platelet Count 158 TH/MM3 152 TH/MM3 133 TH/MM3 (150-450) (150-450) (150-450) Mean Platelet Volume 10.7 FL 10.2 FL 10.5 FL (7.0-11.0) (7.0-11.0) (7.0-11.0) Neutrophils (%) (Auto) 86.7 % 87.1 % 78.5 % (16.0-70.0) (16.0-70.0) (16.0-70.0) Lymphocytes (%) (Auto) 4.6 % 3.7 % 11.3 % (9.0-44.0) (9.0-44.0) (9.0-44.0) Monocytes (%) (Auto) 8.5 % (0.0-8.0) 9.0 % (0.0-8.0) 9.3 % (0.0-8.0) Eosinophils (%) (Auto) 0.0 % (0.0-4.0) 0.0 % (0.0-4.0) 0.9 % (0.0-4.0) Basophils (%) (Auto) 0.2 % (0.0-2.0) 0.2 % (0.0-2.0) 0.0 % (0.0-2.0) Neutrophils # (Auto) 11.0 TH/MM3 12.5 TH/MM3 13.5 TH/MM3 (1.8-7.7) (1.8-7.7) (1.8-7.7) Lymphocytes # (Auto) 0.6 TH/MM3 0.5 TH/MM3 2.0 TH/MM3 (1.0-4.8) (1.0-4.8) (1.0-4.8) Monocytes # (Auto) 1.1 TH/MM3 1.3 TH/MM3 1.6 TH/MM3 (0-0.9) (0-0.9) (0-0.9) Eosinophils # (Auto) 0.0 TH/MM3 0.0 TH/MM3 0.2 TH/MM3 (0-0.4) (0-0.4) (0-0.4) Basophils # (Auto) 0.0 TH/MM3 0.0 TH/MM3 0.0 TH/MM3 (0-0.2) (0-0.2) (0-0.2) CBC Comment AUTO DIFF AUTO DIFF AUTO DIFF Differential Total Cells 100 100 100 Counted Neutrophils % (Manual) 89 % (16-70) 88 % (16-70) 84 % (16-70) Band Neutrophils % 2 % (0-6) 2 % (0-6) Lymphocytes % 1 % (9-44) 4 % (9-44) 8 % (9-44) Monocytes % 5 % (0-8) 7 % (0-8) 4 % (0-8) Neutrophils # (Manual) 11.9 TH/MM3 12.7 TH/MM3 15.1 TH/MM3 (1.8-7.7) (1.8-7.7) (1.8-7.7) Metamyelocytes 1 % (0-1) 2 % (0-1) Myelocytes 2 % (0-0) 1 % (0-0) Differential Comment FINAL DIFF FINAL DIFF FINAL DIFF MANUAL MANUAL MANUAL Platelet Estimate NORMAL LOW (NORMAL) LOW (NORMAL) (NORMAL) Platelet Morphology Comment NORMAL ENLARGED NORMAL (NORMAL) (NORMAL) (NORMAL) Red Cell Morphology Comment NORMAL NORMAL (NORMAL) (NORMAL) Sodium Level 144 MEQ/L 143 MEQ/L 144 MEQ/L (136-145) (136-145) (136-145) Potassium Level 4.7 MEQ/L 4.8 MEQ/L 4.1 MEQ/L (3.5-5.1) (3.5-5.1) (3.5-5.1) Chloride Level 103 MEQ/L 105 MEQ/L 106 MEQ/L (98-107) (98-107) (98-107) Carbon Dioxide Level 34.3 MEQ/L 31.4 MEQ/L 30.9 MEQ/L (21.0-32.0) (21.0-32.0) (21.0-32.0) Anion Gap 7 MEQ/L (5-15) 7 MEQ/L (5-15) 7 MEQ/L (5-15) Blood Urea Nitrogen 42 MG/DL (7-18) 37 MG/DL (7-18) 41 MG/DL (7-18) Creatinine 0.62 MG/DL 0.53 MG/DL 0.52 MG/DL (0.50-1.00) (0.50-1.00) (0.50-1.00) Estimat Glomerular Filtration 95 ML/MIN (>89) 114 ML/MIN 116 ML/MIN Rate (>89) (>89) Random Glucose 152 MG/DL 170 MG/DL 134 MG/DL (74-106) (74-106) (74-106) Calcium Level 7.7 MG/DL 7.9 MG/DL 7.7 MG/DL (8.5-10.1) (8.5-10.1) (8.5-10.1) Phosphorus Level 3.8 MG/DL 3.7 MG/DL 3.7 MG/DL (2.5-4.9) (2.5-4.9) (2.5-4.9) Magnesium Level 2.5 MG/DL 2.4 MG/DL 2.3 MG/DL (1.5-2.5) (1.5-2.5) (1.5-2.5) Total Bilirubin 0.5 MG/DL 0.5 MG/DL 0.6 MG/DL (0.2-1.0) (0.2-1.0) (0.2-1.0) Aspartate Amino Transf 64 U/L (15-37) 56 U/L (15-37) 54 U/L (15-37) (AST/SGOT) Alanine Aminotransferase 222 U/L (10-53) 211 U/L (10-53) 183 U/L (10-53) (ALT/SGPT) Alkaline Phosphatase 114 U/L 110 U/L 113 U/L (45-117) (45-117) (45-117) Total Protein 5.3 GM/DL 5.2 GM/DL 5.4 GM/DL (6.4-8.2) (6.4-8.2) (6.4-8.2) Albumin 2.0 GM/DL 2.1 GM/DL 2.1 GM/DL (3.4-5.0) (3.4-5.0) (3.4-5.0) Test 10/10/16 05:57 Blood Gas Puncture Site RT RADIAL Blood Gas Patient Temperature 98.6 Blood Gas HCO3 29 mmol/L (22-26) Blood Gas Base Excess 5.1 mmol/L (-2-2) Blood Gas Oxygen Saturation 95 % (90-100) Arterial Blood pH 7.46 (7.380-7.420) Arterial Blood Partial 41 mmHg (38-42) Pressure CO2 Arterial Blood Partial 95 mmHg Pressure O2 (61-120) Arterial Blood Oxygen Content 18.9 Vol % (12.0-20.0) Arterial Blood 1.0 % (0-4) Carboxyhemoglobin Arterial Blood Methemoglobin 1.0 % (0-2) Blood Gas Hemoglobin 14.1 G/DL (12.0-16.0) Oxygen Delivery Device VENTILATOR Blood Gas Ventilator Setting AC/20/550/PEEP8 Blood Gas Inspired Oxygen 75 % Result Diagram: 10/10/1639910/10/16399 Procedures * 09/30/16 -intubation * 09/30/16 -right IJ central line placement . Assessment and Plan Disease Oriented Problem List: (1) Acute hypoxemic respiratory failure (2) COPD with exacerbation (3) Hypertension Symptom Scale: (1) Shortness of breath 0-10 Scale: Unable to quantify Comment: Secondary to COPD exacerbation, acute hypoxemic respiratory failure. Remains on mechanical ventilation. (2) Anxiety 0-10 Scale: Unable to quantify Comment: History of anxiety. Currently sedated. (3) Debility 0-10 Scale: Unable to quantify Comment: Secondary to hospitalization, bedbound state. 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 Spiritual: Scientologist. Legal: As per , living will completed. However able, unable to locate at home. Pending copy. Ethical issues impacting care: No ethical issues have been identified. . Important Contacts Patient's Oni Sandoval [phone]. Daughter Romy [phone]. . Prognosis Mrs. Sandoval is a 70-year-old female with a medical history of COPD -O2 dependent , anxiety and hypertension who presented to ED on 09/30/16 via EMS secondary to respiratory distress. Patient intubated, on mechanical ventilation secondary to acute hypoxemic respiratory failure. Patient's overall prognosis is poor given her age, multiple comorbidities, and acute events. Family declining cardiac code, tracheostomy and PEG placement and are electing to transition patient to comfort directed care given her poor prognosis for an improved quality of life. Pending family members to arrive within the next 48 hours. . Code Status: No Code Plan * CODE STATUS: No code. Patient currently intubated. However, family electing no code/do not reintubated if patient extubate. * MEDICAL-DECISION MAKING: Patient incapacitated secondary to clinical condition. As per [place] statute, medical decision making proxy falls to patient's . * GOALS OF CARE: Family elected to transition patient to comfort-directed care/ withdrawal life support given patient's poor prognosis and known wishes. * Exhibits have been sign. * SYMPTOMS: == Comfort-directed medications added. Patient to continue fentanyl drip. * Anticipatory guidance regarding withdrawal life support/allow natural provided to and daughter. * Case discussed Dr. Ryan Grant, bedside RN and Andrew from spiritual services. * Ongoing emotional support and active listening provided. * Care contact information has been provided to patient's family. * Palliative care will continue to follow-up for further clarifications of goals of care as the clinical course evolves. . Time Spent Total Floor Time (mins): 42 (Total time to include review of medical records, physical exam, bedside conversation with and daughter, and case discussion with Dr. Ryan Fuller and bedside RN.) >50% Counseling/Coord of Care: Yes Attestation To help prompt me to consider important information that might be impacting today's encounter and assessment, information from prior notes written by myself or my colleagues may have been "brought forward" into today's note. My signature on this note, however, is an attestation that I personally performed the exam, history, and/or decision-making noted today, and, unless otherwise indicated, the interactions with patient, family, and staff as well as the review of records all occurred today. I also attest that the listed assessment and stated plan reflect my best clinical judgment today based on the combination of historical information, prior notes, and today's exam/ interactions. When time spent is documented, it refers only to time spent today by the signer, or if indicated, combined time spent today by collaborating physician/nurse practitioner. Kateryna Moyer Oct 10, 2016 12:55
[2016-10-10] MEDS ORDERED: HYOSCYAMINE 0.125 MG TAB PO/SL ONE (13:00)
[2016-10-10] MEDS ORDERED: MORPHINE SULFATE 8 MG/ML INJ IV PUSH ONE (13:00)
[2016-10-10] MEDS ORDERED: LORazepam 2 MG/ML VIAL IV ONE ×2 (13:00→13:15)
[2016-10-10] MEDS ORDERED: LORazepam 2 MG/ML VIAL IVS PRN (13:30)
[2016-10-10] MEDS ORDERED: FUROSEMIDE 20 MG/2 ML VIAL IV PRN (13:30)
[2016-10-10] MEDS ORDERED: BISACODYL 10 MG SUPP PR PRN (13:30)
[2016-10-10] MEDS ORDERED: LORazepam 2 MG/ML VIAL IV PRN (13:30)
[2016-10-10] MEDS ORDERED: ACETAMINOPHEN 650 MG SUPP PR PRN (13:30)
[2016-10-10] MEDS: MORPHINE SULFATE 4 MG/ML INJ IV SCH ×2 (14:10→21:05)
[2016-10-10] MEDS: LORazepam 2 MG/ML VIAL IV SCH ×2 (16:00→21:12)
[2016-10-10] MEDS: ATROPINE SULFATE 1% OPHT SOLN 2 ML BTL SL PRN (21:12)
[2016-10-11] VITALS (12 sets, daily range): BP systolic 89–159; BP diastolic 52–83; PULSE 73–127; RESP 6–16; TEMP 94–99.1; O2SAT 41–81
[2016-10-11] MEDS: LORazepam 2 MG/ML VIAL IV SCH ×6 (04:15→21:16)
[2016-10-11] MEDS: MORPHINE SULFATE 4 MG/ML INJ IV SCH ×6 (04:15→21:16)
[2016-10-11] MEDS: ATROPINE SULFATE 1% OPHT SOLN 2 ML BTL SL PRN ×4 (04:30→17:50)
[2016-10-11] MEDS: SODIUM CHLORIDE 0.9% FLUSH 5 ML FLUSH IVF SCH ×2 (08:10→21:00)
[2016-10-11] MEDS: SODIUM CHLORIDE 0.9% FLUSH 5 ML FLUSH IVF PRN ×2 (08:11→11:04)
[2016-10-11] MEDS: BENEPROTEIN POWDER 1 PACK G-TUBE SCH ×3 (09:00→18:00)
[2016-10-11] MEDS: fentaNYL DRIP 250 ML IV SCH ×2 (09:48→21:17)
[2016-10-11] MEDS: MORPHINE SULFATE 4 MG/ML INJ IV PRN ×4 (10:19→17:40)
[2016-10-11] MEDS: LORazepam 2 MG/ML VIAL IV PRN ×4 (11:04→17:40)
--- NOTE | 2016-10-11 11:37 | HHI.HCPN ---
Reason for visit a. To assist with evaluation and management of symptoms including: Debility and shortness of breath. b. To assist medical decision maker(s) with: better understanding of current medical conditions; weighing benefits/burdens of medical treatment options; making medical treatment decisions. . Subjective/Interval History Patient seen in ICU. Withdrawal life support/extubated yesterday. Patient actively dying, she is unresponsive with agonal breathing noted. Appears calm. Ongoing fentanyl infusion. On morphine 4 mg IV and lorazepam 1 mg IV every 4 hours [id number]. When necessary doses available, has been given 1 dose with good effect. and son at bedside. Discussed hospice philosophy and benefits, patient too unstable for transfer to hospice care center. Family electing hospice services while inpatient. Pending transfer to medical floor. Case discussed with hospice nurse Nicol and palliative care physician Dr. Davis. . Family/friend interactions Patient's and son at bedside. They report that family members had the opportunity to visit overnight. Anticipatory guidance provided regarding signs and symptoms of end-of-life. All questions were answered in great detail. Family appreciative of my visit. . Advance Directives Living Will: Completed, but not made available Health Care Surrogate: Never completed Durable Power of Beater And Pulper Feeder: Never completed Advance Directive Specifics Date completed: Has been unable to locate at home. Health Care Surrogate(s): As per [place] statute, healthcare proxy decision-making falls to patient's . . Documented care wishes: Living well not available at this time. unable to locate at home. . Significant change in goals: No code. DNR/DNI. Allow natural . . Objective Vital Signs Date Time Temp Pulse Resp B/P Pulse Ox O2 Delivery O2 Flow Rate FiO2 10/11/16 10:00 100 10/11/16 08:00 81 10/11/16 08:00 97.7 81 6 95/54 76 10/11/16 06:00 73 10/11/16 04:00 98.0 80 14 89/52 73 10/11/16 04:00 80 10/11/16 02:00 80 10/11/16 00:00 94.0 80 14 118/66 81 10/11/16 00:00 80 10/10/16 22:00 80 10/10/16 20:00 73 10/10/16 20:00 99.0 73 12 86/53 76 3/13/17 18:00 74 10/10/16 16:00 72 10/10/16 16:00 98.9 72 12 77/49 74 10/10/16 14:30 98 Room Air 21 10/10/16 14:00 100 10/10/16 12:00 65 10/10/16 12:00 97 10/10/16 12:00 99.3 97 20 127/78 92 10/10/16 11:47 93 65 Intake & Output 10/11/16 10/11/16 07:00 19:00 Intake Total 363 ml Output Total 650 ml Balance -287 ml IV Total 363 ml Output Urine Total 650 ml # Bowel Movements 0 Physical Exam CONSTITUTIONAL/GENERAL: This is an elderly female in no acute distress. Patient is actively dying. TUBES/LINES/DRAINS: Right IJ central line, Abreu catheter. SKIN: No jaundice, rashes, or lesions. Scatter ecchymoses on upper extremities. No wounds seen anteriorly. HEAD: Atraumatic. Normocephalic. EYES: Icterus. Sluggish pupil. ENT: Unable to evaluate hearing secondary to clinical condition. Nose without bleeding or purulent drainage. Mouth close. NECK: Trachea midline. Supple. CARDIOVASCULAR: Regular rate and rhythm. Peripheral pulses symmetric. Cyanosis/mottling to bilateral hands/fingers. RESPIRATORY/CHEST: Very coarse to auscultation. Irregular with periods of apnea noted. Abdominal breathing. GASTROINTESTINAL: Abdomen soft,nondistended. Bowel sounds present. GENITOURINARY: Without palpable bladder distension. Abreu catheter in place. NEUROLOGICAL: Unresponsive to tactile or verbal stimuli. . Diagnostic Tests Laboratory Laboratory Tests Test 10/09/16 10/10/16 10/10/16 03:36 04:00 05:57 White Blood Count 14.3 TH/MM3 17.2 TH/MM3 (4.0-11.0) (4.0-11.0) Red Blood Count 4.83 MIL/MM3 4.65 MIL/MM3 (4.00-5.30) (4.00-5.30) Hemoglobin 13.8 GM/DL 13.4 GM/DL (11.6-15.3) (11.6-15.3) Hematocrit 42.0 % 40.5 % (35.0-46.0) (35.0-46.0) Mean Corpuscular Volume 86.9 FL 87.1 FL (80.0-100.0) (80.0-100.0) Mean Corpuscular Hemoglobin 28.6 PG 28.8 PG (27.0-34.0) (27.0-34.0) Mean Corpuscular Hemoglobin 32.9 % 33.0 % Concent (32.0-36.0) (32.0-36.0) Red Cell Distribution Width 16.0 % 16.1 % (11.6-17.2) (11.6-17.2) Platelet Count 152 TH/MM3 133 TH/MM3 (150-450) (150-450) Mean Platelet Volume 10.2 FL 10.5 FL (7.0-11.0) (7.0-11.0) Neutrophils (%) (Auto) 87.1 % 78.5 % (16.0-70.0) (16.0-70.0) Lymphocytes (%) (Auto) 3.7 % 11.3 % (9.0-44.0) (9.0-44.0) Monocytes (%) (Auto) 9.0 % (0.0-8.0) 9.3 % (0.0-8.0) Eosinophils (%) (Auto) 0.0 % (0.0-4.0) 0.9 % (0.0-4.0) Basophils (%) (Auto) 0.2 % (0.0-2.0) 0.0 % (0.0-2.0) Neutrophils # (Auto) 12.5 TH/MM3 13.5 TH/MM3 (1.8-7.7) (1.8-7.7) Lymphocytes # (Auto) 0.5 TH/MM3 2.0 TH/MM3 (1.0-4.8) (1.0-4.8) Monocytes # (Auto) 1.3 TH/MM3 1.6 TH/MM3 (0-0.9) (0-0.9) Eosinophils # (Auto) 0.0 TH/MM3 0.2 TH/MM3 (0-0.4) (0-0.4) Basophils # (Auto) 0.0 TH/MM3 0.0 TH/MM3 (0-0.2) (0-0.2) CBC Comment AUTO DIFF AUTO DIFF Differential Total Cells 100 100 Counted Neutrophils % (Manual) 88 % (16-70) 84 % (16-70) Lymphocytes % 4 % (9-44) 8 % (9-44) Monocytes % 7 % (0-8) 4 % (0-8) Neutrophils # (Manual) 12.7 TH/MM3 15.1 TH/MM3 (1.8-7.7) (1.8-7.7) Myelocytes 1 % (0-0) Differential Comment FINAL DIFF FINAL DIFF MANUAL MANUAL Platelet Estimate LOW (NORMAL) LOW (NORMAL) Platelet Morphology Comment ENLARGED NORMAL (NORMAL) (NORMAL) Red Cell Morphology Comment NORMAL (NORMAL) Sodium Level 143 MEQ/L 144 MEQ/L (136-145) (136-145) Potassium Level 4.8 MEQ/L 4.1 MEQ/L (3.5-5.1) (3.5-5.1) Chloride Level 105 MEQ/L 106 MEQ/L (98-107) (98-107) Carbon Dioxide Level 31.4 MEQ/L 30.9 MEQ/L (21.0-32.0) (21.0-32.0) Anion Gap 7 MEQ/L (5-15) 7 MEQ/L (5-15) Blood Urea Nitrogen 37 MG/DL (7-18) 41 MG/DL (7-18) Creatinine 0.53 MG/DL 0.52 MG/DL (0.50-1.00) (0.50-1.00) Estimat Glomerular Filtration 114 ML/MIN 116 ML/MIN Rate (>89) (>89) Random Glucose 170 MG/DL 134 MG/DL (74-106) (74-106) Calcium Level 7.9 MG/DL 7.7 MG/DL (8.5-10.1) (8.5-10.1) Phosphorus Level 3.7 MG/DL 3.7 MG/DL (2.5-4.9) (2.5-4.9) Magnesium Level 2.4 MG/DL 2.3 MG/DL (1.5-2.5) (1.5-2.5) Total Bilirubin 0.5 MG/DL 0.6 MG/DL (0.2-1.0) (0.2-1.0) Aspartate Amino Transf 56 U/L (15-37) 54 U/L (15-37) (AST/SGOT) Alanine Aminotransferase 211 U/L (10-53) 183 U/L (10-53) (ALT/SGPT) Alkaline Phosphatase 110 U/L 113 U/L (45-117) (45-117) Total Protein 5.2 GM/DL 5.4 GM/DL (6.4-8.2) (6.4-8.2) Albumin 2.1 GM/DL 2.1 GM/DL (3.4-5.0) (3.4-5.0) Band Neutrophils % 2 % (0-6) Metamyelocytes 2 % (0-1) Blood Gas Puncture Site RT RADIAL Blood Gas Patient Temperature 98.6 Blood Gas HCO3 29 mmol/L (22-26) Blood Gas Base Excess 5.1 mmol/L (-2-2) Blood Gas Oxygen Saturation 95 % (90-100) Arterial Blood pH 7.46 (7.380-7.420) Arterial Blood Partial 41 mmHg (38-42) Pressure CO2 Arterial Blood Partial 95 mmHg Pressure O2 (61-120) Arterial Blood Oxygen Content 18.9 Vol % (12.0-20.0) Arterial Blood 1.0 % (0-4) Carboxyhemoglobin Arterial Blood Methemoglobin 1.0 % (0-2) Blood Gas Hemoglobin 14.1 G/DL (12.0-16.0) Oxygen Delivery Device VENTILATOR Blood Gas Ventilator Setting AC/20/550/PEEP8 Blood Gas Inspired Oxygen 75 % Result Diagram: 10/10/16 0400 10/10/16 0400 Procedures * 10/10/16 -extubation * 09/30/16 -intubation * 09/30/16 -right IJ central line placement . Assessment and Plan Disease Oriented Problem List: (1) Acute hypoxemic respiratory failure (2) COPD with exacerbation (3) Hypertension Symptom Scale: (1) Shortness of breath 0-10 Scale: Unable to quantify Comment: Extubated on 10/10/16. Currently on comfort-directed care. (2) Anxiety 0-10 Scale: Unable to quantify Comment: Controlled. Ativan [id number] as needed available. (3) Debility 0-10 Scale: Unable to quantify Comment: Secondary to hospitalization, bedbound state. 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 Legal: As per , living will completed. However able, unable to locate at home. Pending copy. Ethical issues impacting care: No ethical issues have been identified. . Important Contacts Patient's Oni Sandoval [phone]. Daughter Romy [phone]. . Prognosis Mrs. Sandoval is a 70-year-old female with a medical history of COPD -O2 dependent , anxiety and hypertension who presented to ED on 09/30/16 via EMS secondary to respiratory distress. Patient intubated, on mechanical ventilation secondary to acute hypoxemic respiratory failure. Patient's overall prognosis is poor given her age, multiple comorbidities, and acute events. Family declining cardiac code, tracheostomy and PEG placement and are electing to transition patient to comfort directed care given her poor prognosis for an improved quality of life. Pending family members to arrive within the next 48 hours. . Code Status: No Code Plan * CODE STATUS: No code. DNR/DNI * MEDICAL-DECISION MAKING: Patient incapacitated secondary to clinical condition. As per [place] statute, medical decision making proxy falls to patient's . * GOALS OF CARE: Patient extubated 10/11/16. Transitioned to comfort-directed care under hospice services. Goals of care is to allow natural to occur. Patient too unstable to transfer to hospice care center, has been admitted to hospice services has been patient. * SYMPTOMS: == Comfort-directed medications. Currently on fentanyl drip at 250 mcg an hour. Appears calm. Ativan [id number] and and as needed. * Anticipatory guidance regarding sinus symptoms of end-of-life provided to patient's and son. * Case discussed with Dr. Davis. * Ongoing emotional support and active listening provided. * Care contact information has been provided to patient's family. * Palliative care will continue to follow-up for symptom management and end-of- life care. . Time Spent Total Floor Time (mins): 38 (Total time to include review and summarization of available medical records, physical exam, conversation with patient's and son and case discussion with Dr. Davis.) >50% Counseling/Coord of Care: Yes Attestation To help prompt me to consider important information that might be impacting today's encounter and assessment, information from prior notes written by myself or my colleagues may have been "brought forward" into today's note. My signature on this note, however, is an attestation that I personally performed the exam, history, and/or decision-making noted today, and, unless otherwise indicated, the interactions with patient, family, and staff as well as the review of records all occurred today. I also attest that the listed assessment and stated plan reflect my best clinical judgment today based on the combination of historical information, prior notes, and today's exam/ interactions. When time spent is documented, it refers only to time spent today by the signer, or if indicated, combined time spent today by collaborating physician/nurse practitioner. Kateryna Moyer Oct 11, 2016 11:37
[2016-10-12] VITALS: BP 92/52; PULSE 126; PULSE 127; RESP 12; TEMP 98; O2SAT 60
[2016-10-12] MEDS: LORazepam 2 MG/ML VIAL IV SCH ×2 (00:25→04:34)
[2016-10-12] MEDS: MORPHINE SULFATE 4 MG/ML INJ IV SCH ×2 (00:25→04:34)
[2016-10-12 02:00] VITALS: PULSE 120
[2016-10-12 04:00] VITALS: BP 74/52; PULSE 119; RESP 8; TEMP 99; O2SAT 62
[2016-10-12] MEDS: fentaNYL DRIP 250 ML IV SCH (05:30)
--- NOTE | 2016-10-12 15:15 | HHI.DS ---
Kateryna Moyer 10/12/16 1515: Discharge Summary Admission Date Sep 30, 2016 at 19:16 Discharge Date: Oct 12, 2016 Admitting Diagnosis Acute hypoxemic respiratory failure, COPD exacerbation. (1) Acute hypoxemic respiratory failure (2) COPD with exacerbation (3) Hypertension Procedures * 10/10/16 -extubation * 09/30/16 -intubation * 09/30/16 -right IJ central line placement . Brief History Mrs. Sandoval is a 70-year-old female with a medical history of COPD, anxiety and hypertension who presented to ED on 09/30/16 via EMS secondary to respiratory distress. According to patient's spouse, patient has been oxygen dependent at home for the past year secondary to worsening COPD. On the day prior to presented to ED, has been reporting progressive shortness of breath relieved by nebulizer treatments. Upon EMS arrival, patient's oxygen saturation was found in the 60s while on 2 L nasal cannula. Patient was given duo nebs 3 and steroid injection and once transferred to emergency room for additional management. Upon arrival to ED, patient was tachypnea and was placed on BiPAP. She remained tachypnea and respiratory distress and was subsequently intubated for acute respiratory failure. Patient was transferred to ICU for further management. . CBC/BMP: 10/10/16 0400 10/10/16 0400 Significant Findings Laboratory Tests Test 10/10/16 10/10/16 04:00 05:57 White Blood Count 17.2 TH/MM3 (4.0-11.0) Platelet Count 133 TH/MM3 (150-450) Neutrophils (%) (Auto) 78.5 % (16.0-70.0) Monocytes (%) (Auto) 9.3 % (0.0-8.0) Neutrophils # (Auto) 13.5 TH/MM3 (1.8-7.7) Monocytes # (Auto) 1.6 TH/MM3 (0-0.9) Neutrophils % (Manual) 84 % (16-70) Lymphocytes % 8 % (9-44) Neutrophils # (Manual) 15.1 TH/MM3 (1.8-7.7) Metamyelocytes 2 % (0-1) Platelet Estimate LOW (NORMAL) Blood Urea Nitrogen 41 MG/DL (7-18) Random Glucose 134 MG/DL (74-106) Calcium Level 7.7 MG/DL (8.5-10.1) Aspartate Amino Transf 54 U/L (15-37) (AST/SGOT) Alanine Aminotransferase 183 U/L (10-53) (ALT/SGPT) Total Protein 5.4 GM/DL (6.4-8.2) Albumin 2.1 GM/DL (3.4-5.0) Blood Gas HCO3 29 mmol/L (22-26) Blood Gas Base Excess 5.1 mmol/L (-2-2) Arterial Blood pH 7.46 (7.380-7.420) Imaging Last Impressions Chest X-Ray 10/10/16 0600 Signed Impressions: Service Date/Time: Monday, October 10, 2016 01:57 - CONCLUSION: Slight decrease in bilateral basilar pulmonary opacity. Aidan Capellan MD CT Angiography 10/01/16 0000 Signed Impressions: Service Date/Time: Saturday, October 01, 2016 02:54 - CONCLUSION: No evidence of pulmonary embolism Oni Zamora MD PE at Discharge CONSTITUTIONAL/GENERAL: This is an elderly female in no acute distress. Patient is actively dying. TUBES/LINES/DRAINS: Right IJ central line, Abreu catheter. SKIN: No jaundice, rashes, or lesions. Scatter ecchymoses on upper extremities. No wounds seen anteriorly. HEAD: Atraumatic. Normocephalic. EYES: Icterus. Sluggish pupil. ENT: Unable to evaluate hearing secondary to clinical condition. Nose without bleeding or purulent drainage. Mouth close. NECK: Trachea midline. Supple. CARDIOVASCULAR: Regular rate and rhythm. Peripheral pulses symmetric. Cyanosis/mottling to bilateral hands/fingers. RESPIRATORY/CHEST: Very coarse to auscultation. Irregular with periods of apnea noted. Abdominal breathing. GASTROINTESTINAL: Abdomen soft,nondistended. Bowel sounds present. GENITOURINARY: Without palpable bladder distension. Abreu catheter in place. NEUROLOGICAL: Unresponsive to tactile or verbal stimuli. . Transfer Summary Comfort-directed care under hospice services. Hospital Course Patient's clinical condition continued to worsen, inability to wean off ventilator support. Family elected to transition patient to comfort directed care given her poor prognosis for a meaningful recovery and known wishes of NO tracheostomy, NO PEG tube or life-prolonging measures. Withdrawal of life support/transition to comfort-directed care on 10/10/16. Patient was admitted to inpatient hospice services on 10/11/16 as she was too unstable for transfer to hospice care center. Patient on 10/12/16 at 5:48 AM with family at bedside. . Pt Condition on Discharge: Deteriorating Discharge Disposition: Hospice/Med Facility Discharge Instructions Activities you can perform: Regular-No Restrictions Sharif Archer MD 12/26/16 1306: Discharge Summary CBC/BMP: 10/10/16 0400 10/10/16 0400 Discharge Instructions Additional Information Chart reviewed. Cased discussed with palliative care FUNCTIONAL MANAGER. Above FUNCTIONAL MANAGER discharge summare reviewed and I concur. . Kateryna Moyer Oct 12, 2016 15:15 Sharif Archer MD December 26, 2016 13:06
--- NOTE | 2016-10-13 14:36 | HHI.DS ---
Summary Note Date of : Oct 12, 2016 Time Of : 0548 Admission Date Sep 30, 2016 at 19:16 Admitting Diagnosis Acute hypoxemic respiratory failure, COPD exacerbation. Diagnosis at Time of : (1) Acute hypoxemic respiratory failure ICD Code: J96.01 Diagnosis: Principal (2) COPD with exacerbation ICD Code: J44.1 Diagnosis: Principal (3) Troponin level elevated ICD Code: R74.8 Diagnosis: Principal (4) Hyperglycemia ICD Code: R73.9 Diagnosis: Principal (5) COPD (chronic obstructive pulmonary disease) ICD Code: J44.9 Diagnosis: Secondary (6) Tobacco dependence ICD Code: F17.200 Diagnosis: Secondary (7) Hypertension ICD Code: I10 Diagnosis: Secondary Procedures * 10/10/16 -extubation * 09/30/16 -intubation * 09/30/16 -right IJ central line placement . Brief History Mrs. Sandoval is a 70-year-old female with a medical history of COPD, anxiety and hypertension who presented to ED on 09/30/16 via EMS secondary to respiratory distress. According to patient's spouse, patient has been oxygen dependent at home for the past year secondary to worsening COPD. On the day prior to presented to ED, has been reporting progressive shortness of breath relieved by nebulizer treatments. Upon EMS arrival, patient's oxygen saturation was found in the 60s while on 2 L nasal cannula. Patient was given duo nebs 3 and steroid injection and once transferred to emergency room for additional management. Upon arrival to ED, patient was tachypnea and was placed on BiPAP. She remained tachypnea and respiratory distress and was subsequently intubated for acute respiratory failure. Patient was transferred to ICU for further management. . CBC/BMP: 10/10/16 0400 10/10/16 0400 Imaging Chest x-ray no acute findings Hospital Course Patient's clinical condition continued to worsen, inability to wean off ventilator support. Family elected to transition patient to comfort directed care given her poor prognosis for a meaningful recovery and known wishes of NO tracheostomy, NO PEG tube or life-prolonging measures. Withdrawal of life support/transition to comfort-directed care on 10/10/16. Patient was admitted to inpatient hospice services on 10/11/16 as she was too unstable for transfer to hospice care center. Patient on 10/12/16 at 5:48 AM with family at bedside. . Sharif Archer MD Oct 13, 2016 14:36
== END 2016-10-12 05:48 | disposition expired | DRG 207 ==
LOC: NEPC 18:15 → NEDA 19:16 → HIMW 20:45 → HIME 10-08 17:10
PROVIDERS: ADMIT Family Medicine; ATTEND Family Medicine
PROC: 5A1955Z Respiratory Ventilation, Greater than 96 Consecutive Hours (ICD-10-PCS; principal; 2016-09-30)
PROC: 0BH17EZ Insertion of Endotracheal Airway into Trachea, Via Natural or Artificial Opening (ICD-10-PCS; 2016-09-30)
PROC: 0T9B70Z Drainage of Bladder with Drainage Device, Via Natural or Artificial Opening (ICD-10-PCS; 2016-09-30)
PROC: 05H533Z Insertion of Infusion Device into Right Subclavian Vein, Percutaneous Approach (ICD-10-PCS; 2016-10-01)
DX: J96.01 Acute respiratory failure with hypoxia (principal); I21.4 Non-ST elevation (NSTEMI) myocardial infarction; E87.2 Acidosis; I42.9 Cardiomyopathy, unspecified; Z99.81 Dependence on supplemental oxygen; R65.10 Systemic inflammatory response syndrome (SIRS) of non-infectious origin without acute organ dysfunction; K72.90 Hepatic failure, unspecified without coma; J44.1 Chronic obstructive pulmonary disease with (acute) exacerbation; F41.9 Anxiety disorder, unspecified; F32.9 Major depressive disorder, single episode, unspecified; E78.00 Pure hypercholesterolemia, unspecified; K21.9 Gastro-esophageal reflux disease without esophagitis; I10 Essential (primary) hypertension; E07.9 Disorder of thyroid, unspecified; F17.210 Nicotine dependence, cigarettes, uncomplicated; R73.9 Hyperglycemia, unspecified; E78.5 Hyperlipidemia, unspecified; Z51.5 Encounter for palliative care; Z66 Do not resuscitate; J98.01 Acute bronchospasm; Z74.01 Bed confinement status; Z85.42 Personal history of malignant neoplasm of other parts of uterus; Z91.041 Radiographic dye allergy status; Z78.1 Physical restraint status
CPT/HCPCS: 31500; 36556; 36600; 51702; 71010; 71275; 80048; 80053; 82550; 82552; 82805; 83605; 83735; 84100; 84484; 85007; 85025; 85027; 85610; 85730; 87040; 87205; 87641; 93005; 93306; 94002; 94003; 94640; 94664; 96374; C9113; J0171; J0330; J1200; J1644; J1650; J1815; J1940; J1956; J2060; J2250; J2270; J2543; J2930; J3010; J7030; J7050; Q9967